=== PATIENT | male | born 1955 | race Caucasian/White ===

== ENCOUNTER 2020-07-16 15:08 | Outpatient (REF) | payer OTHER, SELFPAY ==
[2020-07-16 22:21] LABS: Phenytoin Dilantin 5.1 ug/mL (10.0-20.0)
== END 2020-07-16 15:09 | disposition home or self-care (01) ==
LOC: HO.HMGCLDS 15:08
PROVIDERS: PCP Nurse Practitioner Family; Visit Provider Nurse Practitioner Family
DX: R56.9 Unspecified convulsions (principal)
CPT/HCPCS: 80185

== ENCOUNTER 2020-12-23 10:55 | Outpatient (REF) | payer OTHER, SELFPAY ==
--- NOTE | ~2020-12-23 | XR_ITS ---
EXAMINATION: XR HAND, RIGHT CLINICAL INFORMATION: Soft tissue disorder COMPARISON: Previous x-ray July 2019 TECHNIQUE: PA, lateral, and oblique views of the right hand. FINDINGS: There is an old healed fracture of the base of the fifth proximal phalanx. No acute fracture or dislocation is seen. Joint spaces are normal. Soft tissues are normal. XR/XR hand RT min 3V IMPRESSION: Old healed fracture of the fifth finger. Otherwise unremarkable exam.
[2020-12-23 14:15] LABS: C Reactive Protein 0.37 mg/dL (< or = 0.50); Rheumatoid Factor < 15.0 IU/mL (<15.0)
[2020-12-23 15:29] LABS: Erythrocyte Sedimentation Rate 5 MM/HR (0-15)
[2020-12-24 15:02] LABS: Cyclic Citrullinated Peptide <16 UNITS
[2020-12-26 22:22] LABS: Anti Nuclear Antibody Screen POSITIVE (NEGATIVE)
== END 2020-12-23 10:56 | disposition home or self-care (01) ==
LOC: HO.HMGCX 10:55
PROVIDERS: PCP Nurse Practitioner Family; Visit Provider Nurse Practitioner Family
DX: M79.641 Pain in right hand (principal); M79.644 Pain in right finger(s); M79.89 Other specified soft tissue disorders
CPT/HCPCS: 36415; 73130; 85652; 86038; 86039; 86140; 86200; 86431

== ENCOUNTER 2021-02-20 08:42 | Outpatient (REF) | payer OTHER, SELFPAY ==
[2021-02-20 12:02] LABS: Alanine Aminotransferase 45 U/L (0-40); Albumin Level 4.8 g/dL (3.5-5.0); Alkaline Phosphatase 115 U/L (39-117); Anion Gap 14 (12-20); Aspartate Amino Transferase 32 U/L (5-37); Bilirubin Total 0.4 mg/dL (0.0-1.0); Blood Urea Nitrogen 16 mg/dL (9-16); Carbon Dioxide 27 mmol/L (22-29); Chloride 104 mmol/L (96-108); Cholesterol 165 mg/dL; Estimated Glomerular Filt Rate > 60; Glucose Fasting 126 mg/dL (60-99); HDL Cholesterol 65 mg/dL; LDL Cholesterol Calculated 72 mg/dl; Potassium 4.6 mmol/L (3.3-5.1); Sodium 140 mmol/L (135-145); Total Protein 7.6 g/dL (6.5-8.0); Triglycerides 142 mg/dL
[2021-02-20 12:25] LABS: Prostate Specific Antigen Scr 2.64 ng/mL (<0.05-4.0); TSH reflex Free T4 1.36 uIU/mL (0.32-4.0)
[2021-02-20 13:21] LABS: Phenytoin Dilantin 7.2 ug/mL (10.0-20.0)
[2021-02-22 00:16] LABS: Phenytoin, Free/Unbound <0.5 mg/L (1.0-2.0)
== END 2021-02-20 08:43 | disposition home or self-care (01) ==
LOC: HO.HMGCLDS 08:42
PROVIDERS: PCP Nurse Practitioner Family; Visit Provider Nurse Practitioner Family
DX: Z00.00 Encounter for general adult medical examination without abnormal findings (principal); Z12.5 Encounter for screening for malignant neoplasm of prostate; R56.9 Unspecified convulsions
CPT/HCPCS: 36415; 80053; 80061; 80185; 80186; 84153; 84443

== ENCOUNTER 2021-02-24 13:14 | Outpatient (REF) | payer OTHER, SELFPAY ==
[2021-02-24 14:25] LABS: Estimated Average Glucose 126 mg/dL
== END 2021-02-24 13:15 | disposition home or self-care (01) ==
LOC: HO.HMGCLDS 13:14
PROVIDERS: PCP Nurse Practitioner Family; Visit Provider Nurse Practitioner Family
DX: R73.01 Impaired fasting glucose (principal)
CPT/HCPCS: 36415; 83036

== ENCOUNTER 2021-02-25 13:00 | Outpatient (REF) | payer OTHER, SELFPAY ==
--- NOTE | ~2021-02-25 | CT_ITS ---
EXAMINATION: CT HEAD WITHOUT CONTRAST CLINICAL INFORMATION: Headaches, frontal head pain. COMPARISON: 07/14/[address] scan. TECHNIQUE: Contiguous axial imaging was performed from the skull base to vertex without intravenous administration of contrast. Coronal and sagittal reformatted images were obtained. This CT examination was performed using dose optimization techniques as appropriate, variously including the following: *Automated exposure control *Adjustment of mA and/or kV according to patient size (this includes techniques or standardized protocols for targeted exams where dose is matched to indication/reason for exam; i.e. extremities or head) *Use of iterative reconstruction technique DLP: 798 mGy-cm FINDINGS: There is mild widening of the cortical sulci with frontal predominance. The lateral ventricles are symmetrical. The third and fourth ventricles are in their normal midline position. The basilar and prepontine cisterns are unremarkable. There is no acute intra or extracerebral abnormality. There is no mass effect or midline shift. Sections through the bony calvarium are unremarkable. The orbits are intact. The paranasal sinuses are clear. The mastoid air cells are clear. CT/CT head/brain wo con IMPRESSION: No acute intracranial pathology. No significant interval change.
== END 2021-02-25 13:01 | disposition home or self-care (01) ==
LOC: HO.CT 13:00
PROVIDERS: Visit Provider Nurse Practitioner Family
DX: R51.9 Headache, unspecified (principal)
CPT/HCPCS: 70450

== ENCOUNTER 2021-03-13 12:54 | Outpatient (REF) | payer OTHER, SELFPAY ==
[2021-03-13 14:48] LABS: MANUAL DIFF FLAG NO
[2021-03-13 14:56] LABS: Basophils Percent Auto 0.6 % (0-2); Eosinophils Absolute Auto 0.2 X10*3/uL (0.0-0.4); Eosinophils Percent Auto 2.5 % (0-4); Hematocrit 43.2 % (42-52); Hemoglobin 14.8 g/dl (14.0-18.0); Imm Gran Abs Auto 0.01 X10*3/uL (0.00-0.03); Imm Gran Pct Auto 0.2 % (0.0-0.4); Lymphocytes Absolute Auto 1.6 X10*3/uL (1.2-4.9); Lymphocytes Percent Auto 26.1 % (20-40); Mean Corpuscular HGB Conc 34.3 g/dl (31.0-36.0); Mean Corpuscular Hemoglobin 31.6 pg (27.0-33.0); Mean Corpuscular Volume 92.1 fL (80-98); Mean Platelet Volume 11.4 fL (9.4-12.4); Monocytes Absolute Auto 0.5 X10*3/uL (0.1-1.2); Monocytes Percent Auto 8.4 % (2-11); Neutrophils Absolute Auto 3.9 X10*3/uL (2.0-8.3); Neutrophils Percent Auto 62.2 % (45-73); Platelet Count 163 X10*3/uL (160-400); Red Blood Count 4.69 X10*6/uL (4.60-5.80); White Blood Count 6.3 X10*3/uL (4.8-10.8)
[2021-03-13 15:26] LABS: Alanine Aminotransferase 37 U/L (0-40); Albumin Level 4.3 g/dL (3.5-5.0); Alkaline Phosphatase 108 U/L (39-117); Anion Gap 13 (12-20); Aspartate Amino Transferase 35 U/L (5-37); Bilirubin Total 0.4 mg/dL (0.0-1.0); Blood Urea Nitrogen 14 mg/dL (9-16); C Reactive Protein 0.13 mg/dL (< or = 0.50); Calcium 8.8 mg/dL (8.4-10.2); Carbon Dioxide 23 mmol/L (22-29); Chloride 109 mmol/L (96-108); Estimated Glomerular Filt Rate > 60; Glucose Random 106 mg/dL (60-115); Potassium 4.3 mmol/L (3.3-5.1); Sodium 141 mmol/L (135-145); Total Protein 6.9 g/dL (6.5-8.0)
[2021-03-13 15:37] LABS: Erythrocyte Sedimentation Rate 7 MM/HR (0-15)
[2021-03-13 16:25] LABS: Glucose Urine UA NEG (NEG); Leukocyte Esterase Urine NEG (NEG); Nitrite Urine NEG (NEG); Specific Gravity - Urine >= 1.030 (1.005-1.025); Urine Blood NEG (NEG); Urine Ketones NEG (NEG); Urine Protein TRACE MG/DL (NEG-TRACE)
[2021-03-13 16:27] LABS: Appearance Urine CLEAR; Color Urine YELLOW
[2021-03-13 16:35] LABS: Bacteria Urine TRACE /LPF; Mucus Urine TRACE /LPF; RBC Urine 0 /HPF (0); WBC Urine 0 /HPF (0-4)
[2021-03-14 09:37] LABS: Thyroglobulin Antibodies <1 IU/mL (< or = 1); Thyroid Peroxidase Antibodies <1 IU/mL (<9)
[2021-03-14 14:07] LABS: Anti DNA DS Antibody 3 IU/mL; Antibody to SS-A Antigen <1.0 NEG AI (<1.0 NEG); Antibody to SS-B Antigen <1.0 NEG AI (<1.0 NEG); Cardiolipin IgG Ab <2.0 GPL-U/mL; Cardiolipin IgM Ab <2.0 MPL-U/mL; SM/Ribonucleoprotein Ab <1.0 NEG AI (<1.0 NEG); Smith Protein <1.0 NEG AI (<1.0 NEG)
[2021-03-16 10:37] LABS: Complement C3 149 mg/dL (82-185)
[2021-03-16 11:53] LABS: Beta-2 Microglobulin, Serum 1.84 mg/L (< OR = 2.51)
[2021-03-16 14:42] LABS: PTT (LAC) Screen 24 sec (< OR = 40)
== END 2021-03-13 12:55 | disposition home or self-care (01) ==
LOC: HO.LAB 12:54
PROVIDERS: PCP Nurse Practitioner Family; Visit Provider Student in an Organized Health Care Education/Training Program
DX: R76.8 Other specified abnormal immunological findings in serum (principal)
CPT/HCPCS: 36415; 80053; 81001; 82232; 85025; 85597; 85613; 85652; 85730; 86140; 86147; 86160; 86225; 86235; 86376; 86800

== ENCOUNTER → 2021-04-07 12:49 | Outpatient (BNVA) | payer OTHER, SELFPAY | PROVIDERS: PCP Nurse Practitioner Family; Visit Provider Student in an Organized Health Care Education/Training Program ==

== ENCOUNTER → 2021-04-15 10:48 | Outpatient (BNVA) | payer OTHER, SELFPAY | PROVIDERS: PCP Nurse Practitioner Family; Visit Provider Internal Medicine ==

== ENCOUNTER → 2021-05-21 13:33 | Outpatient (BNVA) | payer OTHER, SELFPAY | PROVIDERS: PCP Nurse Practitioner Family; Visit Provider Internal Medicine ==

== ENCOUNTER 2021-09-10 09:51 | Outpatient (REF) | payer MEDICARE, OTHER, SELFPAY ==
[2021-09-10 11:26] LABS: MANUAL DIFF FLAG NO
[2021-09-10 11:33] LABS: Basophils Percent Auto 0.6 % (0-2); Eosinophils Absolute Auto 0.1 X10*3/uL (0.0-0.4); Eosinophils Percent Auto 2.2 % (0-4); Hematocrit 44.5 % (42.0-52.0); Hemoglobin 14.9 g/dl (14.0-18.0); Imm Gran Abs Auto 0.01 X10*3/uL (0.00-0.03); Imm Gran Pct Auto 0.2 % (0.0-0.4); Lymphocytes Absolute Auto 1.6 X10*3/uL (1.2-4.9); Lymphocytes Percent Auto 31.8 % (20-40); Mean Corpuscular HGB Conc 33.5 g/dl (31.0-36.0); Mean Corpuscular Hemoglobin 31.2 pg (27.0-33.0); Mean Corpuscular Volume 93.1 fL (80.0-98.0); Mean Platelet Volume 11.7 fL (9.4-12.4); Monocytes Absolute Auto 0.4 X10*3/uL (0.1-1.2); Monocytes Percent Auto 8.7 % (2-11); Neutrophils Absolute Auto 2.8 x10*3/uL (2.0-8.3); Neutrophils Percent Auto 56.5 % (45-73); Platelet Count 152 X10*3/uL (160-400); Red Blood Count 4.78 X10*6/uL (4.60-5.80); Red Cell Distribution Width 12.4 % (11.0-16.0)
[2021-09-10 12:03] LABS: Appearance Urine CLEAR; Color Urine YELLOW; Glucose Urine UA NEG (NEG); Leukocyte Esterase Urine NEG (NEG); Nitrite Urine NEG (NEG); Specific Gravity - Urine >= 1.030 (1.005-1.025); Urine Blood NEG (NEG); Urine Ketones NEG (NEG); Urine Protein NEG (NEG-TRACE)
[2021-09-10 12:14] LABS: TSH reflex Free T4 1.61 uIU/mL (0.32-4.0)
[2021-09-10 12:28] LABS: Alanine Aminotransferase 26 U/L (0-40); Albumin Level 4.4 g/dL (3.5-5.0); Alkaline Phosphatase 115 U/L (39-117); Anion Gap 13 (12-20); Aspartate Amino Transferase 26 U/L (5-37); Bilirubin Total 0.4 mg/dL (0.0-1.0); Blood Urea Nitrogen 11 mg/dL (9-16); Carbon Dioxide 26 mmol/L (22-29); Chloride 107 mmol/L (96-108); Cholesterol 165 mg/dL; Estimated Glomerular Filt Rate > 60; Glucose Fasting 131 mg/dL (60-99); HDL Cholesterol 57 mg/dL; LDL Cholesterol Calculated 90 mg/dl; Potassium 4.6 mmol/L (3.3-5.1); Sodium 141 mmol/L (135-145); Triglycerides 94 mg/dL
[2021-09-10 13:38] LABS: Phenytoin Dilantin 7.2 ug/mL (10.0-20.0)
== END 2021-09-10 09:52 | disposition home or self-care (01) ==
LOC: HO.HMGCLDS 09:51
PROVIDERS: PCP Nurse Practitioner Family; Visit Provider Nurse Practitioner Family
DX: Z00.00 Encounter for general adult medical examination without abnormal findings (principal); R56.9 Unspecified convulsions
CPT/HCPCS: 36415; 80053; 80061; 80185; 81003; 84443; 85025

== ENCOUNTER → 2021-11-19 12:46 | Outpatient (BNVA) | payer OTHER, SELFPAY | PROVIDERS: PCP Nurse Practitioner Family; Referring Provider Nurse Practitioner Family; Visit Provider Physician Assistant ==

== ENCOUNTER 2022-01-05 11:45 | Outpatient (REF) | payer OTHER, SELFPAY ==
[2022-01-05 14:11] LABS: Hematocrit 49.2 % (42.0-52.0); Hemoglobin 16.6 g/dl (14.0-18.0); Mean Corpuscular HGB Conc 33.7 g/dl (31.0-36.0); Mean Corpuscular Hemoglobin 31.3 pg (27.0-33.0); Mean Corpuscular Volume 92.8 fL (80.0-98.0); Mean Platelet Volume 11.8 fL (9.4-12.4); Platelet Count 170 X10*3/uL (160-400); Red Cell Distribution Width 12.4 % (11.0-16.0); White Blood Count 6.3 X10*3/uL (4.8-10.8)
[2022-01-05 14:22] LABS: Alanine Aminotransferase 39 U/L (0-40); Albumin Level 4.5 g/dL (3.5-5.0); Alkaline Phosphatase 125 U/L (39-117); Anion Gap 14 (12-20); Aspartate Amino Transferase 27 U/L (5-37); Bilirubin Direct 0.2 mg/dL (0.0-0.5); Bilirubin Total 0.5 mg/dL (0.0-1.0); Blood Urea Nitrogen 11 mg/dL (9-16); C Reactive Protein 0.08 mg/dL (< or = 0.50); Calcium 9.4 mg/dL (8.4-10.2); Carbon Dioxide 28 mmol/L (22-29); Chloride 102 mmol/L (96-108); Estimated Glomerular Filt Rate > 60; Glucose Random 116 mg/dL (60-115); Potassium 4.6 mmol/L (3.3-5.1); Sodium 139 mmol/L (135-145); Total Protein 7.4 g/dL (6.5-8.0)
== END 2022-01-05 11:46 | disposition home or self-care (01) ==
LOC: HO.HMGCLDS 11:45
PROVIDERS: Visit Provider Internal Medicine
DX: R51.9 Headache, unspecified (principal)
CPT/HCPCS: 36415; 80048; 80076; 85027; 86140

== ENCOUNTER 2022-02-08 12:05 | Emergency (ER) | payer OTHER, SELFPAY ==
--- NOTE | ~2022-02-08 | XR_ITS ---
EXAMINATION: XR ABDOMEN KUB CLINICAL INDICATION: Constipation with question of small bowel obstruction and fecal impaction COMPARISON: None TECHNIQUE: AP view of the abdomen. FINDINGS: The bowel gas pattern is unremarkable with no evidence of ileus or obstruction. Surgical clips are noted right upper quadrant, right mid abdomen and midpelvis. No unusual soft tissue calcifications are noted. The bones are unremarkable. XR/XR KUB IMPRESSION: Unremarkable examination.
--- NOTE | ~2022-02-08 | CT_ITS ---
EXAMINATION: CT CHEST, ABDOMEN AND PELVIS WITHOUT CONTRAST CLINICAL INFORMATION: Reason for Exam elevated WBC. Colitis or pneumonia? COMPARISON: No pertinent prior studies are available for comparison. TECHNIQUE: Multidetector volumetric imaging was performed from the thoracic inlet through the pubic symphysis without IV contrast. Sagittal and coronal reformatted images were obtained on the technologist's workstation. This CT examination was performed using dose optimization techniques as appropriate, variously including the following: *Automated exposure control *Adjustment of mA and/or kV according to patient size (this includes techniques or standardized protocols for targeted exams where dose is matched to indication/reason for exam; i.e. extremities or head) *Use of iterative reconstruction technique DLP: 330 and 711 mGy-cm FINDINGS: CHEST: Lung: Bibasilar atelectasis is seen along with multiple punctate calcified granulomas predominantly in the right lung. The lungs are otherwise clear without worrisome focal opacity or nodule. Mediastinum: The mediastinum is normal. The central vascular structures are unremarkable. No hilar or mediastinal lymphadenopathy. Pericardium/Pleura: No significant effusion. No pleural mass or thickening. Chest Wall/Axilla: Unremarkable ABDOMEN/PELVIS: Peritoneal Space: No significant free air or free fluid identified. Liver, Gallbladder, Biliary Tree: The liver is normal in size, shape, and attenuation. No focal hepatic lesion or biliary ductal dilatation is present. Status post cholecystectomy. Pancreas: Unremarkable Spleen: Unremarkable Adrenal Glands: Unremarkable Kidneys and Ureters: The kidneys are normal in size, shape, and attenuation. No hydronephrosis, hydroureter, or calculi seen. No perinephric stranding. Bladder: Unremarkable Gastrointestinal Tract: The small and large bowel are unremarkable. The appendix is unremarkable. Abdominal Wall: No significant hernia is appreciated. Lymph Nodes: No lymphadenopathy. Vascular: The aorta appears normal.. The IVC appears unremarkable. PELVIC VISCERA: Unremarkable OSSEUS STRUCTURES: Mild degenerative changes are noted in the spine. Mild to moderate changes are seen in the hips. No bony destructive lesions are seen. CT/CT abdomen pelvis wo con IMPRESSION: No significant abnormality is seen. A cause for the patient's elevated white count has not been found. There is no evidence of pneumonia or colitis. Fleischner guidelines were followed.
--- NOTE | ~2022-02-08 | CT_ITS ---
EXAMINATION: CT HEAD WITHOUT CONTRAST CLINICAL INFORMATION: Seizure. COMPARISON: None TECHNIQUE: Contiguous axial imaging was performed from the skull base to vertex without intravenous administration of contrast. This CT examination was performed using dose optimization techniques as appropriate, variously including the following: *Automated exposure control *Adjustment of mA and/or kV according to patient size (this includes techniques or standardized protocols for targeted exams where dose is matched to indication/reason for exam; i.e. extremities or head) *Use of iterative reconstruction technique DLP: 1713 mGy-cm FINDINGS: There is no evidence of acute intracranial hemorrhage or territorial infarction. No abnormal mass effect or midline shift is seen. Rao to white matter differentiation is well preserved. No extra-axial fluid collections are identified. The ventricles are normal in size. There is no abnormal attenuation within the brain parenchyma. The osseous structures and soft tissues are normal. The mastoid air cells and visualized portions of the paranasal sinuses are well aerated. CT/CT head/brain wo con IMPRESSION: No acute intracranial process seen.
--- NOTE | 2022-02-08 13:30 | ED_ITS ---
HPI - General Adult General Chief complaint: Seizure Stated complaint: respiratory distress Time Seen by Provider: 02/08/22 13:00 Source: patient Mode of arrival: ambulatory Limitations: no limitations History of Present Illness HPI narrative: 66-year-old male history of seizures presents to the ED seizure/syncope while having a bowel movement. Patient was having bowel movement in the waiting room and he was straining so hard that he passed out started having seizure. Seizure was witnessed by and nurse. states patient has history of constipation and fecal impaction that leads to syncope and seizures when straining. She states when patient has severe constipation and fecal impaction and he strains using the bathroom he syncopize and has his seizure. She states patient is compliant with seizure medications. Patient takes seizure meds at night. Related Data Home Medications Medication Instructions Recorded Confirmed azelastine 137 mcg (0.1 %) nasal INTRANASAL 07/07/20 01/05/22 spray aerosol citalopram 10 mg/5 mL oral solution mg PO 07/07/20 01/05/22 dextroamphetamine-amphetamine ER 1 cap PO DAILY 07/07/20 01/05/22 10 mg 24hr capsule,extend release flu vac qs 2019(4 yr up)CD(PF) ml IM 07/07/20 01/05/22 lorazepam 0.5 mg tablet 1 mg PO BID 07/07/20 01/05/22 fluticasone propionate 50 2 spray INTRANASAL DAILY 08/19/20 01/05/22 mcg/actuation nasal spray,suspension Previous Rx's Medication Instructions Recorded atorvastatin 80 mg tablet 80 mg PO DAILY #90 tab 06/07/21 bisacodyl 5 mg tablet,delayed 10 mg PO ONCE 1 Days #2 tab 11/19/21 release (Dulcolax (bisacodyl)) polyethylene glycol 3350 17 238 g PO ONCE 1 Days #238 g 11/19/21 gram/dose oral powder (Miralax) quinapril 10 mg tablet 10 mg PO DAILY #90 tab 12/12/21 phenytoin sodium extended 100 mg 300 mg PO DAILY #270 cap 01/02/22 capsule fluticasone propionate 50 1 spray INTRANASAL DAILY #9.9 ml 01/05/22 mcg/actuation nasal spray,suspension (Flonase Allergy Relief) meloxicam 15 mg tablet 15 mg PO DAILY #14 tab 01/05/22 Allergies Allergy/AdvReac Type Severity Reaction Status Date / Time prednisone Allergy Severe severe Verified 02/08/22 18:35 headaches Review of Systems Review of Systems: Constipation. Seizure. Yes all other systems are reviewed and are negative [facility] Past Medical History Medical History (Updated 02/08/22 @ 19:40 by JEMMA Mejía) Depression Excessive daytime sleepiness Family history of colon cancer Insomnia Seizures Sinus headache Surgical History (Updated 11/19/21 @ 12:54 by SHAHLA Hdez) History of hernia repair Hx of cholecystectomy Hx of colonoscopy Family History Family History Father Colon cancer Mother Unknown family medical history Dementia associated with alcoholism Brother Cirrhosis Son No problems noted. Son No problems noted. Social History Social History Housing: House Alcohol intake: never Patient Tobacco Use Status: Never used Tobacco e-Cigarette/Vaping Use: Never Used Second Hand Smoke Exposure: No Advance Directives: No Advance Directives Information Provided: Yes service: No Current occupational status: employed and retired Physical Exam ED Vital Signs: Vital Signs - 24 hr 02/08/22 15:45 02/08/22 18:36 02/08/22 19:04 Temperature 97.7 F 98.3 F 97.8 F Pulse Rate 93 80 72 Respiratory Rate 16 18 16 Blood Pressure 133/77 138/77 137/73 Pulse Oximetry 96 96 98 BMI result Body Mass Index 28.5 Const General: cooperative, healthy appearing, comfortable, no acute distress, well developed, alert, awake and Physically active Orientation/consciousness: oriented to time and patient oriented x3 [facility]: Yes normal to inspection, Yes No palpable skull fracture present, Yes normocephalic, Yes atraumatic and No abrasion Eyes General: appearance normal, both eyes and all related structures Neck Neck: Yes normal visual inspection, Yes full ROM, Yes no lymphadenopathy, Yes no meningeal signs, Yes trachea midline, Yes supple, No anterior neck swelling and No tender Chest Chest palpation & inspection: normal inspection of the chest and normal palpation of entire chest wall Resp Effort & Inspection: normal respiratory effort and able to speak in complete sentences Auscultation: clear to auscultation bilaterally Cardio Jugular venous distension: no JVD Heart sounds: S1 normal heart sound present and S2 normal heart sound present GI Inspection: Yes normal to inspection and No abdominal wall ecchymosis Palpation (GI): Soft to palpation, not firm, nontender, no guarding and not rigid General: No CVA tenderness and Yes no CVA tenderness Back/Spine/Pelvis Back: no CVA tenderness, No CVA tenderness and No back tenderness Skin General skin exam: no rashes or lesions noted and elasticity normal Neuro General: oriented to time, patient oriented x3, gait normal, no meningeal signs and CN's II-XI intact bilaterally Cranial nerves: Yes CN's II-XII intact bilaterally Extrem General: Yes normal to inspection and Yes full ROM Psych Appearance: grossly normal, well kempt and not disheveled Course Course Course Narrative: Patient was placed in the ER from the bathroom in the waiting room after having seizure while trying to have a bowel movement. Patient then went to the bathroom in the ER ever since has been having bowel movements. Will re-evaluate when he gets to the bed. Reevaluation(s) Reevaluation #1: Patient had large amount of bowel movements in the bathroom both before abdominal x-ray was done. Patient states he had multiple bowel movements in the bathroom and feels better. He states abdomen no longer for distended. Abdomen benign soft nontender on palpation. Elevated white blood cell count probably due to straining. Time: 15:54 Reevaluation #2: Patient troponins came back negative. EKG negative STEMI. Chest CT abdominal CT negative for any infectious etiology. Head CT scan negative for any brain mass. Not suspecting meningitis. Abdominal CT scan negative for bowel ob struction. Patient given Dilantin. Patient informed to follow-up with his neurologist. No need for admission. not suspecting PE. Patient had a syncopal than seizure episode while straining to use the bathroom. Time: 19:35 Medical Decision Making MDM Narrative Medical decision making narrative: Seizure. Post defecation syncope Lab Data Result diagrams: 02/08/22 15:14 02/08/22 15:14 Labs: Lab Results 02/08/22 02/08/22 02/08/22 Range/Units 15:14 15:14 15:14 WBC 15.5 H (4.8-10.8) X10*3/uL RBC 5.13 (4.60-5.80) X10*6/uL Hgb 15.9 (14.0-18.0) g/dl Hct 46.9 (42.0-52.0) % MCV 91.4 (80.0-98.0) fL MCH 31.0 (27.0-33.0) pg MCHC 33.9 (31.0-36.0) g/dl RDW 12.3 (11.0-16.0) % Plt Count 155 L (160-400) X10*3/uL MPV 10.7 (9.4-12.4) fL Immature Gran % (Auto) 0.4 (0.0-0.4) % Neut % (Auto) 89.2 H (45-73) % Lymph % (Auto) 4.8 L (20-40) % [place] % (Auto) 5.3 (2-11) % Eos % (Auto) 0.1 (0-4) % Baso % (Auto) 0.2 (0-2) % Lymph # (Auto) 0.8 L (1.2-4.9) X10*3/uL [place] # (Auto) 0.8 (0.1-1.2) X10*3/uL Eos # (Auto) 0.0 (0.0-0.4) X10*3/uL Baso # (Auto) 0.0 (0.0-0.2) X10*3/uL Abs Immat Gran (auto) 0.06 H (0.00-0.03) X10*3/uL Absolute Neuts (auto) 13.8 H (2.0-8.3) x10*3/uL Absolute Nucleated RBC 0.000 (0.0-0.012) X10*3/uL Nucleated RBC % (auto) 0.0 (0.0-0.2) /100WBC PT 11.7 (9.9-13.0) SEC INR 1.0 (0.9-1.1) APTT 29.1 (24.1-38.0) SEC Sodium 138 (135-145) mmol/L Potassium 5.1 (3.3-5.1) mmol/L Chloride 108 (96-108) mmol/L Carbon Dioxide 23 (22-29) mmol/L Anion Gap 12 (12-20) BUN 11 (9-16) mg/dL Creatinine 0.90 (0.5-1.4) mg/dL Estim Creat Clear Calc TNP Estimated GFR > 60 Random Glucose 124 H (60-115) mg/dL Calcium 9.6 (8.4-10.2) mg/dL Total Bilirubin 0.6 (0.0-1.0) mg/dL AST 37 (5-37) U/L ALT 42 H (0-40) U/L Alkaline Phosphatase 122 H (39-117) U/L Troponin I High Sens (<3.5-35.0) ng/L Total Protein 7.8 (6.5-8.0) g/dL Albumin 4.8 (3.5-5.0) g/dL Urine Color Urine Appearance Urine pH (5.0-8.0) Ur Specific [place] (1.005-1.025) Urine Protein (NEG-TRACE) MG/DL Urine Glucose (UA) (NEG) MG/DL Urine Ketones (NEG) MG/DL Urine Blood (NEG) Urine Nitrite (NEG) Ur Leukocyte Esterase (NEG) Urine RBC (0) /HPF Urine WBC (0-4) /HPF Ur Squamous Epith Cells /LPF Urine Bacteria /LPF Phenytoin 5.7 L* (10.0-20.0) ug/mL 02/08/22 02/08/22 02/08/22 Range/Units 15:14 18:43 18:59 WBC (4.8-10.8) X10*3/uL RBC (4.60-5.80) X10*6/uL Hgb (14.0-18.0) g/dl Hct (42.0-52.0) % MCV (80.0-98.0) fL MCH (27.0-33.0) pg MCHC (31.0-36.0) g/dl RDW (11.0-16.0) % Plt Count (160-400) X10*3/uL MPV (9.4-12.4) fL Immature Gran % (Auto) (0.0-0.4) % Neut % (Auto) (45-73) % Lymph % (Auto) (20-40) % [place] % (Auto) (2-11) % Eos % (Auto) (0-4) % Baso % (Auto) (0-2) % Lymph # (Auto) (1.2-4.9) X10*3/uL [place] # (Auto) (0.1-1.2) X10*3/uL Eos # (Auto) (0.0-0.4) X10*3/uL Baso # (Auto) (0.0-0.2) X10*3/uL Abs Immat Gran (auto) (0.00-0.03) X10*3/uL Absolute Neuts (auto) (2.0-8.3) x10*3/uL Absolute Nucleated RBC (0.0-0.012) X10*3/uL Nucleated RBC % (auto) (0.0-0.2) /100WBC PT (9.9-13.0) SEC INR (0.9-1.1) APTT (24.1-38.0) SEC Sodium (135-145) mmol/L Potassium (3.3-5.1) mmol/L Chloride (96-108) mmol/L Carbon Dioxide (22-29) mmol/L Anion Gap (12-20) BUN (9-16) mg/dL Creatinine (0.5-1.4) mg/dL Estim Creat Clear Calc Estimated GFR Random Glucose (60-115) mg/dL Calcium (8.4-10.2) mg/dL Total Bilirubin (0.0-1.0) mg/dL AST (5-37) U/L ALT (0-40) U/L Alkaline Phosphatase (39-117) U/L Troponin I High Sens 6.1 6.4 (<3.5-35.0) ng/L Total Protein (6.5-8.0) g/dL Albumin (3.5-5.0) g/dL Urine Color YELLOW Urine Appearance CLEAR Urine pH 5.5 (5.0-8.0) Ur Specific [place] 1.025 (1.005-1.025) Urine Protein NEG (NEG-TRACE) MG/DL Urine Glucose (UA) NEG (NEG) MG/DL Urine Ketones NEG (NEG) MG/DL Urine Blood TRACE (NEG) Urine Nitrite NEG (NEG) Ur Leukocyte Esterase NEG (NEG) Urine RBC 1-4 (0) /HPF Urine WBC 0 (0-4) /HPF Ur Squamous Epith Cells TRACE /LPF Urine Bacteria NONE /LPF Phenytoin (10.0-20.0) ug/mL ECG Data Interpretation: Normal sinus rhythm. Ventricular rate 92. Pr interval 182 pr QRS 88. QTC 457. Negative STEMI Discharge Plan Discharge Clinical Impression: Seizure, Syncope, vasovagal, Constipation Patient Disposition: Home, Self-Care Instructions: Constipation (ED), Syncope (ED), Recurrent Seizures in Adults (ED) Additional Instructions: Return to ED immediately for any headache, dizziness, nausea, vomiting, fever, chills, abdominal pain, chest pain, shortness of breath, blood in stool, intractable seizures, facial droop, paralysis of extremities, loss of vision, slurred speech, or any other concerning symptoms. Please follow-up with the primary care provider and neurologist. You're, Dilantin level was low Prescriptions: No Action atorvastatin 80 mg tablet 80 mg PO DAILY Qty: 90 2RF quinapril 10 mg tablet 10 mg PO DAILY Qty: 90 1RF phenytoin sodium extended 100 mg capsule 300 mg PO DAILY Qty: 270 1RF fluticasone propionate 50 mcg/actuation spray,suspension 2 spray intranasal DAILY 0RF Flucelvax Quad 7334-7700 (PF) 60 mcg (15 mcg x 4)/0.5 mL syringe IM 0RF dextroamphetamine-amphetamine 10 mg capsule,extended release 24hr 1 cap PO DAILY 0RF citalopram 10 mg/5 mL solution PO 0RF azelastine 137 mcg (0.1 %) aerosol,spray intranasal 0RF lorazepam 0.5 mg tablet 1 mg PO BID 0RF meloxicam 15 mg tablet 15 mg PO DAILY Qty: 14 0RF fluticasone propionate [Flonase Allergy Relief] 50 mcg/actuation spray,suspension 1 spray intranasal DAILY Qty: 9.9 1RF Rx Instructions: administer into each nostril bisacodyl [Dulcolax (bisacodyl)] 5 mg tablet,delayed release (DR/EC) 10 mg PO ONCE 1 Days Qty: 2 0RF Rx Instructions: Take 2 tablets by mouth at 12:00pm the day before your procedure. polyethylene glycol 3350 [Miralax] 17 gram/dose powder 238 g PO ONCE 1 Days Qty: 238 0RF Rx Instructions: Take as directed by mouth the day before your procedure. Print Language: Syriac
--- NOTE | 2022-02-08 14:41 | ECG_ITS ---
Test Reason : SYNCOPE/SEIZURE Blood Pressure : / mmHG Vent. Rate : 092 BPM Atrial Rate : 092 BPM P-R Int : 182 ms QRS Dur : 088 ms QT Int : 370 ms P-R-T Axes : 051 -30 054 degrees QTc Int : 457 ms Normal sinus rhythm Left axis deviation Borderline ECG When compared with ECG of 09-JAN-2010 09:49, QT has lengthened Referred By: Ab Cam Electronically Signed By:BETSY ARREDONDO
[2022-02-08 15:17] LABS: MANUAL DIFF FLAG NO
[2022-02-08 15:22] LABS: Basophils Percent Auto 0.2 % (0-2); Eosinophils Percent Auto 0.1 % (0-4); Hematocrit 46.9 % (42.0-52.0); Hemoglobin 15.9 g/dl (14.0-18.0); Imm Gran Abs Auto 0.06 X10*3/uL (0.00-0.03); Imm Gran Pct Auto 0.4 % (0.0-0.4); Lymphocytes Absolute Auto 0.8 X10*3/uL (1.2-4.9); Lymphocytes Percent Auto 4.8 % (20-40); Mean Corpuscular HGB Conc 33.9 g/dl (31.0-36.0); Mean Corpuscular Volume 91.4 fL (80.0-98.0); Mean Platelet Volume 10.7 fL (9.4-12.4); Monocytes Absolute Auto 0.8 X10*3/uL (0.1-1.2); Monocytes Percent Auto 5.3 % (2-11); Neutrophils Absolute Auto 13.8 x10*3/uL (2.0-8.3); Neutrophils Percent Auto 89.2 % (45-73); Platelet Count 155 X10*3/uL (160-400); Red Blood Count 5.13 X10*6/uL (4.60-5.80); Red Cell Distribution Width 12.3 % (11.0-16.0); White Blood Count 15.5 X10*3/uL (4.8-10.8)
[2022-02-08 15:26] LABS: Prothrombin Time 11.7 SEC (9.9-13.0)
[2022-02-08 15:28] LABS: Partial Thromboplastin Time 29.1 SEC (24.1-38.0)
[2022-02-08 15:36] LABS: Alanine Aminotransferase 42 U/L (0-40); Albumin Level 4.8 g/dL (3.5-5.0); Alkaline Phosphatase 122 U/L (39-117); Anion Gap 12 (12-20); Aspartate Amino Transferase 37 U/L (5-37); Bilirubin Total 0.6 mg/dL (0.0-1.0); Blood Urea Nitrogen 11 mg/dL (9-16); Calcium 9.6 mg/dL (8.4-10.2); Carbon Dioxide 23 mmol/L (22-29); Chloride 108 mmol/L (96-108); Estimated Glomerular Filt Rate > 60; Glucose Random 124 mg/dL (60-115); Potassium 5.1 mmol/L (3.3-5.1); Sodium 138 mmol/L (135-145); Total Protein 7.8 g/dL (6.5-8.0)
[2022-02-08 15:39] LABS: Troponin-I High Sensitivity 6.1 ng/L (<3.5-35.0)
[2022-02-08 15:45] VITALS: BP 133/77; PULSE 93; RESP 16; TEMP 36.5; O2SAT 96
[2022-02-08 16:01] LABS: Phenytoin Dilantin 5.7 ug/mL (10.0-20.0)
[2022-02-08 18:36] VITALS: BP 138/77; PULSE 80; RESP 18; TEMP 36.8; O2SAT 96; BMI 28.5
[2022-02-08] MEDS: Phenytoin Sodium Extended 100 MG CAPSULE 300 MG PO (18:42)
--- NOTE | 2022-02-08 18:50 | PC.NURSE ---
pt a&ox3, vss, pt c/o slight abd discomfort, but better since bowel movement. urine sample obtained and sent to lab. medicated per provider order.
[2022-02-08 19:04] VITALS: BP 137/73; PULSE 72; RESP 16; TEMP 36.6; O2SAT 98
[2022-02-08 19:04] LABS: Appearance Urine CLEAR; Color Urine YELLOW; Glucose Urine UA NEG (NEG); Leukocyte Esterase Urine NEG (NEG); Nitrite Urine NEG (NEG); PH 5.5 (5.0-8.0); Specific Gravity - Urine 1.025 (1.005-1.025); UACC Culture Trigger NO; Urine Blood TRACE (NEG); Urine Ketones NEG (NEG); Urine Protein NEG (NEG-TRACE)
[2022-02-08 19:11] LABS: Squamous Epithelial Cell Urine TRACE /LPF; WBC Urine 0 /HPF (0-4)
[2022-02-08 19:30] LABS: Troponin-I High Sensitivity 6.4 ng/L (<3.5-35.0)
== END 2022-02-08 19:57 | disposition home or self-care (01) ==
PROVIDERS: Physician Assistant; Emergency Provider Emergency Medicine Emergency Medical Services; PCP Nurse Practitioner Family
DX: R55 Syncope and collapse (principal); R56.9 Unspecified convulsions; K59.00 Constipation, unspecified; R06.02 Shortness of breath; Z79.899 Other long term (current) drug therapy
CPT/HCPCS: 36415; 70450; 71250; 74018; 74176; 80053; 80185; 81001; 81003; 84484; 85025; 85610; 85730; 93005; 99284

== ENCOUNTER 2022-04-06 10:26 | Outpatient (REF) | payer OTHER, SELFPAY ==
--- NOTE | ~2022-04-06 | XR_ITS ---
EXAMINATION: XR RIBS, RIGHT CLINICAL INFORMATION: Pleurodynia COMPARISON: CT chest 02/08/2022 TECHNIQUE: 3 views of the right ribs were obtained. Chest PA 1 view FINDINGS: Lungs are clear. No consolidation, pneumothorax, or pleural effusion. The cardiomediastinal silhouette and pulmonary vasculature are normal. Osseous structures are unremarkable. Markers were placed along the right lower chest but no rib fractures are visualized.. XR/XR ribs RT min 3V w CXR1V IMPRESSION: Unremarkable chest exam. Multiple views right ribs reveal no visible fracture or bony abnormality.
== END 2022-04-06 10:27 | disposition home or self-care (01) ==
LOC: HO.HMGCX 10:26
PROVIDERS: PCP Nurse Practitioner Family; Visit Provider Physician Assistant
DX: R07.81 Pleurodynia (principal)
CPT/HCPCS: 71101

== ENCOUNTER 2022-06-02 11:29 | Day surgery (SDC) | payer OTHER, SELFPAY ==
[2022-02-11 16:23] VITALS: BMI 28.5
--- NOTE | 2022-06-01 11:43 | HO.ANESPROP2 ---
Documented by User: Elise Driver NP 06/01/22 11:45 HPI - Anesthesia Eval Consult details Narrative: 67yo M for Colonoscopy PMFSH Active Problems Active Problems: All Active Problems (Updated 05/20/22 @ 12:18 by Michael Rich, [facility]) Screening PSA (prostate specific antigen) (Acute) Constipation (Acute) Vasovagal syncope (Acute) Sinus headache (Acute) Physical exam (Acute) Insomnia (Acute) Stress (Acute) Screening for colon cancer (Acute) Insomnia (Acute) Depression (Acute) Excessive daytime sleepiness (Acute) Elevated fasting blood sugar (Acute) New onset headache (Acute) Sleep apnea (Acute) Positive VANGIE (antinuclear antibody) (Acute) Pain of hand and fingers (Acute) Swelling of right hand (Acute) Fatigue after vaccination (Acute) Acute sinusitis (Acute) Screening PSA (prostate specific antigen) (Acute) Physical exam (Acute) Seizures (Acute) Medication refill (Acute) Cellulitis (Acute) Splinter (Acute) Past Medical History Medical History Depression Excessive daytime sleepiness Family history of colon cancer Insomnia Seizures Sinus headache Family History Family History Father Colon cancer Mother Unknown family medical history Dementia associated with alcoholism Brother Cirrhosis Substance use disorder Son No problems noted. Son No problems noted. Surgical History Surgical History History of hernia repair Hx of cholecystectomy Hx of colonoscopy Social History Social History Housing: House Are you a primary skin care consultant to a significant other at home: No Do you presently have visiting nurse or other home services: No Alcohol intake: never Patient Tobacco Use Status: Never used Tobacco e-Cigarette/Vaping Use: Never Used Second Hand Smoke Exposure: No Have you been hit, kicked, punched, or otherwise hurt by someone within the past year? If so, by whom?: No Are you DNR?: No Advance Directives: No Advance Directives Information Provided: Yes Advance Directives on File: No service: No Current occupational status: employed and retired Cognitive needs: No Hearing needs: No Vision needs: No Meds Allergies Allergy/AdvReac Type Severity Reaction Status Date / Time prednisone Allergy Severe severe Verified 05/20/22 12:16 headaches Home Medications Medication Instructions Recorded Confirmed Last Taken Type citalopram 10 mg/5 mL oral solution PO DAILY 07/07/20 05/20/22 06/02/22 History dextroamphetamine-amphetamine ER 1 cap PO DAILY 07/07/20 05/20/22 Unknown History 10 mg 24hr capsule,extend release flu vac qs 2019(4 yr up)CD(PF) 60 ml IM 07/07/20 05/20/22 Unknown History mcg(15 mcgx4)/0.5 mL IM syringe lorazepam 0.5 mg tablet 1 mg PO BID 07/07/20 05/20/22 06/02/22 History levetiracetam 500 mg tablet 500 mg PO BID 05/20/22 05/20/22 06/02/22 History Exam Exam Date and Time: June 01, 2022 1143 Height,Weight and Vital Signs: Height 6 ft Weight 95.254 kg Pertinent Lab Results Pertinent Lab Results: Laboratory Tests 02/08/22 02/08/22 15:14 15:14 WBC 15.5 H Hgb 15.9 Hct 46.9 Plt Count 155 L Sodium 138 Potassium 5.1 Chloride 108 Carbon Dioxide 23 BUN 11 Creatinine 0.90 Narrative Narrative: EKG 01/2022 Vent. Rate : 092 BPM ? ? Atrial Rate : 092 BPM ?? P-R Int : 182 ms? QRS Dur : 088 ms ? ? QT Int : 370 ms ? ? ? P-R-T Axes : 051 -30 054 degrees ?? QTc Int : 457 ms ? Normal sinus rhythm Left axis deviation Borderline ECG When compared with ECG of 09-JAN-2010 09:49, QT has lengthened Assessment and Plan Assessment Anesthesia Assessment: Chart Reviewed Documented by User: Suzanne Sanchez MD 06/02/22 11:54 PMFSH Past Medical History Medical History Depression Excessive daytime sleepiness Family history of colon cancer Insomnia Seizures Sinus headache Functional capacity: independent ambulation Family History Family History Father Colon cancer Mother Unknown family medical history Dementia associated with alcoholism Brother Cirrhosis Substance use disorder Son No problems noted. Son No problems noted. Family history of problems with anesthesia: No Surgical History Surgical History History of hernia repair Hx of cholecystectomy Hx of colonoscopy History of Problems with Anesthesia: No Social History Social History Housing: House Are you a primary skin care consultant to a significant other at home: No Do you presently have visiting nurse or other home services: No Alcohol intake: never Patient Tobacco Use Status: Never used Tobacco e-Cigarette/Vaping Use: Never Used Second Hand Smoke Exposure: No Have you been hit, kicked, punched, or otherwise hurt by someone within the past year? If so, by whom?: No Are you DNR?: No Advance Directives: No Advance Directives Information Provided: Yes Advance Directives on File: No service: No Current occupational status: employed and retired Cognitive needs: No Hearing needs: No Vision needs: No Meds Allergies Allergy/AdvReac Type Severity Reaction Status Date / Time prednisone Allergy Severe severe Verified 05/20/22 12:16 headaches Home Medications Medication Instructions Recorded Confirmed Last Taken Type citalopram 10 mg/5 mL oral solution PO DAILY 07/07/20 05/20/22 06/02/22 History dextroamphetamine-amphetamine ER 1 cap PO DAILY 07/07/20 05/20/22 Unknown History 10 mg 24hr capsule,extend release flu vac 2019(4 yr up)CD(PF) 60 ml IM 07/07/20 05/20/22 Unknown History mcg(15 mcgx4)/0.5 mL IM syringe lorazepam 0.5 mg tablet 1 mg PO BID 07/07/20 05/20/22 06/02/22 History levetiracetam 500 mg tablet 500 mg PO BID 05/20/22 05/20/22 06/02/22 History Exam Airway Mallampati Class: II TM Dist: >3cm Neck ROM: Full Heart: RRR Lungs: CTA Assessment and Plan Final Anesthetic Review Family History of Problems with Anesthesia: No History of Problems with Anesthesia: No ASA Class: II Final Preanesthetic Review: No Changes in Pt Med Stat, Meds/Allgs Chart Reviewed, Consent Obtained/Reviewed and Anes Risks/Benef Reviewed Patient Risk: Low Procedure Risk: Low Anesthetic Plan Anesthetic Plan: MAC: Disposition: Standard PACU
[2022-06-02 11:48] VITALS: BP 138/103; PULSE 97; RESP 18; TEMP 36.8; O2SAT 98; BMI 28.0
--- NOTE | 2022-06-02 11:57 | MHC.SHP ---
Pre-Procedural Eval Section A Date of Service: 06/02/22 Section B Chief Complaint: screening Details of Present Illness: crc father Relevant Family History (Specify if Yes): Yes Relevant Social History: None Present Medications: see Short Stay Collaborative assessment Medical History: Significant History (Depression Excessive daytime sleepiness Family history of colon cancer Insomnia Seizures Sinus headache) History of Previous Operations: Relevant previous surgery/procedure and date(s) (History of hernia repair Hx of cholecystectomy Hx of colonoscopy) Allergies: Allergies Allergy/AdvReac Type Severity Reaction Status Date / Time prednisone Allergy Severe severe Verified 05/20/22 12:16 headaches Review of Systems Sugical H&P ROS: Negative: Constitution, Cardiovascular, Respiratory, Neurological, Psychiatric, Hem-Onc, Allergic/Immunologic, Gastrointestinal, Genitourinary, Musculoskeletal, Integumentary, Endocrine and Eyes/Ears/Nose/Throat Exam Surgical H&P Exam: Normal: HEENT, Normal: Heart, Normal: Lungs, Normal: Extremities, Normal: Abdomen, Normal: Skin and Normal: Neurological Plan Diagnosis/Plan: Unchanged I have reviewed the history and physical and performed a pertinent physical examination on my patient. No changes have occurred unless specified.
[2022-06-02] MEDS: Lactated Ringers 1,000 ML 100 ML IVCONT (12:11)
--- NOTE | 2022-06-02 12:41 | W.PM.OPN ---
Operative Note Operative Note Date of Service: 06/02/22 Narrative: Operative Information Procedure Description: Colonoscopy Indication: screening, FH of colon cancer Anesthesia: MAC COLONOSCOPY Instrument: Olympus variable stiffness pediatric scope 190L Colonoscopy Monitoring: Vital signs and clinical assessment, continuous EKG monitoring, Pulse oximetry, Carbon Dioxide monitoring and blood pressure monitoring were done throughout the procedure. Colon withdrawal time was 13 minutes. Procedure: The patient was placed in the left lateral decubitis position and pre-procedure medications were administered. After a digital rectal examination of the ano-rectum, the video colonoscope was inserted into the rectum and advanced through the colon to the cecum/TI. The colonoscope was slowly withdrawn in a retrograde panoramic fashion and the colon mucosa was carefully examined including a retroflexed view of the rectum. Findings and interventions are described below. Procedure Difficulty: easy Findings: Terminal Ileum-normal Cecum:normal Ascending Colon: normal Transverse Colon -normal Descending Colon: x 2 sessile polyps removed with cold snare 4-7 mm Sigmoid Colon: normal Rectum: Retroflexion with small internal hemorrhoids, grade I, 9-10 mm sessile polyp removed with cold snare and x1 clip applied for hemostasis Anorectum - normal Colon preparation: [place] Bowel Preparation Scale Right colon; 3 Transverse colon: 3 Left colon; 3 (0 = Unprepared colon segment with mucosa not seen due to solid stool that cannot be cleared. 1 = Portion of mucosa of the colon segment seen, but other areas of the colon segment not well seen due to staining, residual stool and/or opaque liquid. 2 = Minor amount of residual staining, small fragments of stool and/or opaque liquid, but mucosa of colon segment seen well. 3 = Entire mucosa of colon segment seen well with no residual staining, small fragments of stool or opaque liquid) Impression and Post Procedure Diagnosis: polyps internal hemorrhoids Plan: High fiber diet leaflet Avoid straining at stool, epsom salts and sitz bath, anusol supps or cream Repeat Colonoscopy in 5 years due to polyps and FH or earlier if clinically indicated Above findings were reviewed with the patient and relevant handouts were provided if indicated.
[2022-06-02 12:46] VITALS: BP 117/73; PULSE 82; RESP 16; TEMP 36.1; O2SAT 96
[2022-06-02 13:01] VITALS: BP 114/76; PULSE 79; RESP 18; TEMP 36.1; O2SAT 98
--- NOTE | 2022-06-02 13:27 | HO.POSTANES ---
Post Anesthesia Evaluation Post Anesthesia Evaluation Vital Signs: Vital Signs Temp Pulse Resp BP Pulse Ox O2 Del Method 06/02/22 13:01 97.0 F 79 18 114/76 98 Room Air 06/02/22 12:46 97.0 F 82 16 117/73 96 Room Air 06/02/22 11:48 98.2 F 97 18 138/103 H 98 Room Air Anesthesia: Monitored Mental Status: Awake Pain Control: Satisfactory Nausea/Vomiting: None Hydration: Adequate Anesthesia-Related Issues: No Anes. Related Issues
== END 2022-06-02 14:08 | disposition home or self-care (01) ==
PROVIDERS: PCP Internal Medicine; Visit Provider Internal Medicine Gastroenterology
PROC: 0DJD8ZZ Inspection of Lower Intestinal Tract, Via Natural or Artificial Opening Endoscopic (ICD-10-PCS; CPT 45378; principal; 2022-06-02 12:30)
DX: Z12.11 Encounter for screening for malignant neoplasm of colon (principal); Z80.0 Family history of malignant neoplasm of digestive organs; D12.4 Benign neoplasm of descending colon; D12.8 Benign neoplasm of rectum; K64.0 First degree hemorrhoids; I10 Essential (primary) hypertension; E78.00 Pure hypercholesterolemia, unspecified; G47.33 Obstructive sleep apnea (adult) (pediatric); G40.909 Epilepsy, unspecified, not intractable, without status epilepticus; Z79.51 Long term (current) use of inhaled steroids; Z79.899 Other long term (current) drug therapy; Z88.8 Allergy status to other drugs, medicaments and biological substances; Z90.49 Acquired absence of other specified parts of digestive tract
CPT/HCPCS: 45385; 88305

== ENCOUNTER 2022-08-17 09:08 | Outpatient (REF) | payer OTHER, SELFPAY ==
[2022-08-17 11:30] LABS: Appearance Urine Turbid; Color Urine Yellow; Glucose Urine UA Negative (Negative); Leukocyte Esterase Urine Negative (Negative); Nitrite Urine Negative (Negative); PH 5.5 (5.0-9.0); Specific Gravity - Urine >= 1.030 (1.005-1.025); Urine Blood Negative (Negative); Urine Ketones Negative (Negative); Urine Protein Negative (Neg-Trace)
[2022-08-17 11:38] LABS: MANUAL DIFF FLAG NO
[2022-08-17 11:57] LABS: Basophils Percent Auto 0.7 % (0-2); Eosinophils Absolute Auto 0.2 X10*3/uL (0.0-0.4); Eosinophils Percent Auto 3.4 % (0-4); Hematocrit 47.9 % (42.0-52.0); Hemoglobin 15.6 g/dl (14.0-18.0); Imm Gran Abs Auto 0.01 X10*3/uL (0.00-0.03); Imm Gran Pct Auto 0.2 % (0.0-0.4); Lymphocytes Absolute Auto 1.5 X10*3/uL (1.2-4.9); Lymphocytes Percent Auto 28.7 % (20-40); Mean Corpuscular HGB Conc 32.6 g/dl (31.0-36.0); Mean Corpuscular Hemoglobin 30.8 pg (27.0-33.0); Mean Corpuscular Volume 94.7 fL (80.0-98.0); Mean Platelet Volume 11.8 fL (9.4-12.4); Monocytes Absolute Auto 0.4 X10*3/uL (0.1-1.2); Monocytes Percent Auto 7.3 % (2-11); Neutrophils Absolute Auto 3.2 x10*3/uL (2.0-8.3); Neutrophils Percent Auto 59.7 % (45-73); Platelet Count 163 X10*3/uL (160-400); Red Blood Count 5.06 X10*6/uL (4.60-5.80); Red Cell Distribution Width 12.2 % (11.0-16.0); White Blood Count 5.4 X10*3/uL (4.8-10.8)
[2022-08-17 13:07] LABS: Alanine Aminotransferase 27 U/L (0-40); Albumin Level 4.2 g/dL (3.5-5.0); Alkaline Phosphatase 100 U/L (39-117); Anion Gap 11 (12-20); Aspartate Amino Transferase 24 U/L (5-37); Bilirubin Total 0.6 mg/dL (0.0-1.0); Blood Urea Nitrogen 19 mg/dL (9-16); Calcium 8.6 mg/dL (8.4-10.2); Carbon Dioxide 27 mmol/L (22-29); Chloride 107 mmol/L (96-108); Cholesterol 126 mg/dL; Estimated Glomerular Filt Rate > 60; Glucose Fasting 117 mg/dL (60-99); HDL Cholesterol 55 mg/dL; LDL Cholesterol Calculated 61 mg/dl; Potassium 4.7 mmol/L (3.3-5.1); Prostate Specific Antigen Scr 2.58 ng/mL (<0.05-4.0); Sodium 140 mmol/L (135-145); TSH reflex Free T4 2.07 uIU/mL (0.32-4.0); Total Protein 6.6 g/dL (6.5-8.0); Triglycerides 52 mg/dL
== END 2022-08-17 09:09 | disposition home or self-care (01) ==
LOC: HO.HMGCLDS 09:08
PROVIDERS: PCP Nurse Practitioner Family; Visit Provider Nurse Practitioner Family
DX: Z00.00 Encounter for general adult medical examination without abnormal findings (principal); Z12.5 Encounter for screening for malignant neoplasm of prostate
CPT/HCPCS: 36415; 80053; 80061; 81003; 84153; 84443; 85025

== ENCOUNTER → 2022-09-28 14:15 | Outpatient (BNVA) | payer OTHER, SELFPAY | PROVIDERS: PCP Nurse Practitioner Family; Visit Provider Surgery | DX: Z13.89 Encounter for screening for other disorder (principal) ==

== ENCOUNTER 2023-02-22 08:50 | Outpatient (REF) | payer OTHER, SELFPAY ==
[2023-02-22 11:16] LABS: Appearance Urine Cloudy; Color Urine Yellow; Glucose Urine UA Negative (Negative); Leukocyte Esterase Urine Negative (Negative); Nitrite Urine Negative (Negative); PH 5.5 (5.0-9.0); Specific Gravity - Urine 1.025 (1.005-1.025); Urine Blood Negative (Negative); Urine Ketones Trace mg/dL (Negative); Urine Protein Negative (Neg-Trace)
[2023-02-22 12:10] LABS: Alanine Aminotransferase 28 U/L (0-40); Albumin Level 4.2 g/dL (3.5-5.0); Alkaline Phosphatase 95 U/L (39-117); Anion Gap 11 (12-20); Aspartate Amino Transferase 28 U/L (5-37); Bilirubin Total 0.7 mg/dL (0.0-1.0); Blood Urea Nitrogen 9 mg/dL (9-16); Calcium 8.8 mg/dL (8.4-10.2); Carbon Dioxide 25 mmol/L (22-29); Chloride 109 mmol/L (96-108); Estimated Glomerular Filt Rate > 60; Glucose Fasting 112 mg/dL (60-99); Potassium 3.8 mmol/L (3.3-5.1); Sodium 141 mmol/L (135-145); Total Protein 6.7 g/dL (6.5-8.0)
== END 2023-02-22 08:51 | disposition home or self-care (01) ==
LOC: HO.HMGCLDS 08:50
PROVIDERS: PCP Nurse Practitioner Family; Visit Provider Nurse Practitioner Family
DX: Z00.00 Encounter for general adult medical examination without abnormal findings (principal); R73.01 Impaired fasting glucose
CPT/HCPCS: 36415; 80053; 81003

== ENCOUNTER 2023-05-22 11:01 | Emergency (ER) | payer OTHER, SELFPAY ==
[2023-05-22] VITALS (7 sets, daily range): BP systolic 116–145; BP diastolic 67–82; PULSE 57–85; RESP 18–19; TEMP 36.7–37.1; O2SAT 97–98; BMI 29.8
--- NOTE | ~2023-05-22 | CT_ITS ---
EXAMINATION: HEAD CT WITHOUT CONTRAST CERVICAL SPINE CT WITHOUT CONTRAST CLINICAL INFORMATION: Syncope, head strike COMPARISON: CT head 02/08/2022 TECHNIQUE: Contiguous axial imaging of the head was performed without the administration of IV contrast. Axial multidetector volumetric images were also performed through the cervical spine without contrast. Multiplanar reconstructed images in coronal and sagittal orientations were submitted. DOSE: 1136 mGy-cm FINDINGS: HEAD: There is no evidence of acute intracranial hemorrhage or territorial infarction. No abnormal mass-effect or midline shift. No extra-axial fluid collections. Rao to white matter differentiation is well preserved. Stable mild widening of the sulci of the left lobe predominance. No hydrocephalus. No acute calvarial fracture. The sinuses and mastoid air cells are clear. CERVICAL SPINE: Straightening of the cervical spine curvature. There is anatomic alignment of the vertebral bodies and posterior elements. The atlantoaxial and atlantooccipital articulations are maintained. Vertebral body heights are maintained. No acute fractures seen. Mild degenerative changes at C6-C7. intervertebral disc spaces are relatively maintained. Multilevel facet degeneration. No abnormal prevertebral soft tissue swelling. Central canal is grossly maintained. Visualized lung apices appear unremarkable. No suspicious thyroid findings. CT/CT cervical spine wo IV con IMPRESSION: 1. No CT evidence of acute intracranial hemorrhage or edematous territorial infarction. 2. No CT evidence of acute fracture or malalignment in the cervical spine.
--- NOTE | ~2023-05-22 | CT_ITS ---
EXAMINATION: HEAD CT WITHOUT CONTRAST CERVICAL SPINE CT WITHOUT CONTRAST CLINICAL INFORMATION: Syncope, head strike COMPARISON: CT head 02/08/2022 TECHNIQUE: Contiguous axial imaging of the head was performed without the administration of IV contrast. Axial multidetector volumetric images were also performed through the cervical spine without contrast. Multiplanar reconstructed images in coronal and sagittal orientations were submitted. DOSE: 1136 mGy-cm FINDINGS: HEAD: There is no evidence of acute intracranial hemorrhage or territorial infarction. No abnormal mass-effect or midline shift. No extra-axial fluid collections. Rao to white matter differentiation is well preserved. Stable mild widening of the sulci of the left lobe predominance. No hydrocephalus. No acute calvarial fracture. The sinuses and mastoid air cells are clear. CERVICAL SPINE: Straightening of the cervical spine curvature. There is anatomic alignment of the vertebral bodies and posterior elements. The atlantoaxial and atlantooccipital articulations are maintained. Vertebral body heights are maintained. No acute fractures seen. Mild degenerative changes at C6-C7. intervertebral disc spaces are relatively maintained. Multilevel facet degeneration. No abnormal prevertebral soft tissue swelling. Central canal is grossly maintained. Visualized lung apices appear unremarkable. No suspicious thyroid findings. CT/CT head/brain wo IV con IMPRESSION: 1. No CT evidence of acute intracranial hemorrhage or edematous territorial infarction. 2. No CT evidence of acute fracture or malalignment in the cervical spine.
--- NOTE | 2023-05-22 11:17 | ED_ITS ---
HPI - General Adult General Chief complaint: Fall Stated complaint: Unwitnessed syncopal episode Time Seen by Provider: 05/22/23 11:44 Related Data Home Medications Medication Instructions Recorded Confirmed citalopram 10 mg/5 mL oral solution PO DAILY 07/07/20 03/01/23 dextroamphetamine-amphetamine ER 1 cap PO DAILY 07/07/20 03/01/23 10 mg 24hr capsule,extend release lorazepam 0.5 mg tablet 1 mg PO BID 07/07/20 03/01/23 levetiracetam 750 mg tablet 750 mg PO BID 07/08/22 03/01/23 Previous Rx's Medication Instructions Recorded atorvastatin 80 mg tablet 80 mg PO DAILY #90 tabs 12/08/22 lisinopril 10 mg tablet 10 mg PO DAILY #90 tabs 03/12/23 Allergies Allergy/AdvReac Type Severity Reaction Status Date / Time prednisone Allergy Severe severe Verified 05/22/23 11:23 headaches PMFSH Past Medical History Medical History Depression Excessive daytime sleepiness Family history of colon cancer Ichthyosis Insomnia Seizures Sinus headache Surgical History History of hernia repair Hx of cholecystectomy Hx of colonoscopy Family History Family History Father Colon cancer Mother Unknown family medical history Dementia associated with alcoholism Brother Cirrhosis Substance use disorder Son No problems noted. Son No problems noted. Social History Social History Housing: House Are you a primary ambulatory care coordinator to a significant other at home: No Do you presently have visiting nurse or other home services: No Alcohol intake: never Patient Tobacco Use Status: Never used Tobacco Smoked in Last 30 Days: No e-Cigarette/Vaping Use: Never Used Second Hand Smoke Exposure: No Use of substances other than those prescribed or required for medical reasons: Yes Substance Use Type: Marijuana Advance Directives: No Advance Directives Information Provided: No service: No Current occupational status: employed and retired Cognitive needs: No Hearing needs: No Vision needs: No Physical Exam ED Vital Signs: Vital Signs - 24 hr 05/22/23 11:16 05/22/23 11:59 05/22/23 11:24 Temperature 98.7 F Pulse Rate 82 68 85 Respiratory Rate 18 Blood Pressure 116/71 124/67 127/81 Pulse Oximetry 98 Oxygen Delivery Method Room Air 05/22/23 12:01 05/22/23 12:37 05/22/23 14:36 Temperature 98.1 F Pulse Rate 85 66 57 Respiratory Rate 18 19 Blood Pressure 116/82 124/69 126/77 Pulse Oximetry 98 97 Oxygen Delivery Method Room Air Room Air 05/22/23 14:56 05/22/23 14:56 05/22/23 14:56 Temperature Pulse Rate 63 66 80 Respiratory Rate Blood Pressure 134/68 145/80 H 134/82 Pulse Oximetry Oxygen Delivery Method BMI result Body Mass Index 29.8 Course Course Course Narrative: This is an RME: Additional HPI, ROS, PE not included below will be deferred to primary provider. Patient is a 68-year-old male presents emergency department for evaluation after syncope. He reports that he Awoke at 0200 to have a bowel movement, while walking into bathroom felt weak, legs weak, diaphoresis, attempted to reach for a cold glass of water as this has helped this scenario in the past, then syncompised, fell off of the toilet to the ground. When he r egained consciousness he was able to get himself back to the, some pain to the posterior aspect of his head and felt a palpable lump. Awoke again a few times throughout the night without issue. When he woke at 0700 he called his ex-spouse who advised coming to the ED for evaluation. At this time he denies dizziness, neck pain, chest pain, shortness of breath, numbness or tingling of the extremities. Plan: CT head/cervical spine, serum labs, EKG, orthostatic VS Reevaluation(s) Reevaluation #1: see additional note from Mervat Simmons MD for full HPI, ROS, PE, MDM Medications Administered Discontinued Medications Generic Name Dose Route Start Last Admin Trade Name Freq PRN Reason Stop Dose Admin Sodium Chloride 1,000 mls @ 999 mls/hr 05/22/23 13:30 05/22/23 14:44 Ns IVCONT 05/22/23 14:30 Infused .Q1H1M GIORGIO Infusion Sodium Chloride 1,000 mls @ 999 mls/hr 05/22/23 15:00 05/22/23 14:57 Ns IVCONT 05/22/23 16:00 999 mls/hr .Q1H1M GIORGIO Administration Medical Decision Making Lab Data 05/22/23 12:09 05/22/23 12:09 Labs: Lab Results 05/22/23 05/22/23 05/22/23 Range/Units 12:09 12:09 12:09 WBC 8.8 (4.8-10.8) X10*3/uL RBC 5.25 (4.60-5.80) X10*6/uL Hgb 16.1 (14.0-18.0) g/dl Hct 47.1 (42.0-52.0) % MCV 89.7 (80.0-98.0) fL MCH 30.7 (27.0-33.0) pg MCHC 34.2 (31.0-36.0) g/dl RDW 12.6 (11.0-16.0) % Plt Count 174 (160-400) X10*3/uL MPV 11.7 (9.4-12.4) fL Immature Gran % (Auto) 0.2 (0.0-0.4) % Neut % (Auto) 79.3 H (45-73) % Lymph % (Auto) 14.3 L (20-40) % [place] % (Auto) 5.7 (2-11) % Eos % (Auto) 0.0 (0-4) % Baso % (Auto) 0.5 (0-2) % Lymph # (Auto) 1.3 (1.2-4.9) X10*3/uL [place] # (Auto) 0.5 (0.1-1.2) X10*3/uL Eos # (Auto) 0.0 (0.0-0.4) X10*3/uL Baso # (Auto) 0.0 (0.0-0.2) X10*3/uL Abs Immat Gran (auto) 0.02 (0.00-0.03) X10*3/uL Absolute Neuts (auto) 7.0 (2.0-8.3) x10*3/uL Absolute Nucleated RBC 0.000 (0.0-0.012) X10*3/uL Nucleated RBC % (auto) 0.0 (0.0-0.2) /100WBC Sodium 137 (135-145) mmol/L Potassium 4.2 (3.3-5.1) mmol/L Chloride 104 (96-108) mmol/L Carbon Dioxide 23 (22-29) mmol/L Anion Gap 14 (12-20) BUN 13 (9-16) mg/dL Creatinine 1.11 (0.5-1.4) mg/dL Estim Creat Clear Calc 78.9 Estimated GFR > 60 Random Glucose 131 H (60-115) mg/dL Calcium 9.3 (8.4-10.2) mg/dL Magnesium 2.2 (1.6-2.6) mg/dL Total Bilirubin 0.8 (0.0-1.0) mg/dL AST 30 (5-37) U/L ALT 27 (0-40) U/L Alkaline Phosphatase 84 (39-117) U/L Troponin I High Sens (<3.5-35.0) ng/L B-Natriuretic Peptide < 10 (<100) pg/mL Total Protein 7.7 (6.5-8.0) g/dL Albumin 4.6 (3.5-5.0) g/dL Urine Color Urine Appearance Urine pH (5.0-9.0) Ur Specific [place] (1.005-1.025) Urine Protein (Neg-Trace) mg/dL Urine Glucose (UA) (Negative) mg/dL Urine Ketones (Negative) mg/dL Urine Blood (Negative) Urine Nitrite (Negative) Ur Leukocyte Esterase (Negative) 05/22/23 05/22/23 Range/Units 12:09 13:57 WBC (4.8-10.8) X10*3/uL RBC (4.60-5.80) X10*6/uL Hgb (14.0-18.0) g/dl Hct (42.0-52.0) % MCV (80.0-98.0) fL MCH (27.0-33.0) pg MCHC (31.0-36.0) g/dl RDW (11.0-16.0) % Plt Count (160-400) X10*3/uL MPV (9.4-12.4) fL Immature Gran % (Auto) (0.0-0.4) % Neut % (Auto) (45-73) % Lymph % (Auto) (20-40) % [place] % (Auto) (2-11) % Eos % (Auto) (0-4) % Baso % (Auto) (0-2) % Lymph # (Auto) (1.2-4.9) X10*3/uL [place] # (Auto) (0.1-1.2) X10*3/uL Eos # (Auto) (0.0-0.4) X10*3/uL Baso # (Auto) (0.0-0.2) X10*3/uL Abs Immat Gran (auto) (0.00-0.03) X10*3/uL Absolute Neuts (auto) (2.0-8.3) x10*3/uL Absolute Nucleated RBC (0.0-0.012) X10*3/uL Nucleated RBC % (auto) (0.0-0.2) /100WBC Sodium (135-145) mmol/L Potassium (3.3-5.1) mmol/L Chloride (96-108) mmol/L Carbon Dioxide (22-29) mmol/L Anion Gap (12-20) BUN (9-16) mg/dL Creatinine (0.5-1.4) mg/dL Estim Creat Clear Calc Estimated GFR Random Glucose (60-115) mg/dL Calcium (8.4-10.2) mg/dL Magnesium (1.6-2.6) mg/dL Total Bilirubin (0.0-1.0) mg/dL AST (5-37) U/L ALT (0-40) U/L Alkaline Phosphatase (39-117) U/L Troponin I High Sens 15.7 (<3.5-35.0) ng/L B-Natriuretic Peptide (<100) pg/mL Total Protein (6.5-8.0) g/dL Albumin (3.5-5.0) g/dL Urine Color Yellow Urine Appearance Clear Urine pH 5.5 (5.0-9.0) Ur Specific [place] 1.015 (1.005-1.025) Urine Protein Negative (Neg-Trace) mg/dL Urine Glucose (UA) Negative (Negative) mg/dL Urine Ketones Trace (Negative) mg/dL Urine Blood Negative (Negative) Urine Nitrite Negative (Negative) Ur Leukocyte Esterase Negative (Negative) Discharge Plan Discharge Clinical Impression: Head injury, Syncope Patient Disposition: Home, Self-Care Instructions: Syncope (DC), Head Injury (ED) Additional Instructions: You been evaluated for head injury and passing out. Your CT scan of the head was normal your blood work and electrocardiogram was normal. We discussed passive possible admission but rather go home, return if you worse otherwise follow-up with your primary care physician call in a.m. Prescriptions: No Action atorvastatin 80 mg tablet 80 mg PO DAILY Qty: 90 2RF lisinopril 10 mg tablet 10 mg PO DAILY Qty: 90 0RF dextroamphetamine-amphetamine 10 mg capsule,extended release 24hr 1 cap PO DAILY citalopram 10 mg/5 mL solution PO DAILY lorazepam 0.5 mg tablet 1 mg PO BID levetiracetam 750 mg tablet 750 mg PO BID Interventions: ED Discharge Assessment Last Done: 05/22/23 15:31 Discharge Date/Time: 05/22/23 15:31
--- NOTE | 2023-05-22 11:23 | ECG_ITS ---
Test Reason : SYNCOPE Blood Pressure : / mmHG Vent. Rate : 068 BPM Atrial Rate : 068 BPM P-R Int : 164 ms QRS Dur : 086 ms QT Int : 420 ms P-R-T Axes : 049 -36 037 degrees QTc Int : 446 ms Normal sinus rhythm Left axis deviation Abnormal ECG When compared with ECG of 08-FEB-2022 14:51, No significant change was found Referred By: Jesenia Miguel Electronically Signed By:ROSY RAYGOZA
--- NOTE | 2023-05-22 11:53 | ED.SYNCOPE ---
HPI - Syncope General Chief Complaint: Fall Stated Complaint: Unwitnessed syncopal episode Time Seen by Provider: 05/22/23 11:44 Source: patient and family Mode of arrival: ambulatory Limitations: no limitations History of Present Illness HPI narrative: This is a 68 years old male presented to the emergency department with chief complaint of syncope and head injury. He states that around 02:00 o'clock in the morning he went to the bathroom while sitting in the toilet passed out it head in the ground. Then went back to sleep Onset (ago): hour(s) (8) Witnessed: No Context: at rest Injuries sustained associated with event: none Current symptoms: back to baseline Related Data Home Medications Medication Instructions Recorded Confirmed citalopram 10 mg/5 mL oral solution PO DAILY 07/07/20 03/01/23 dextroamphetamine-amphetamine ER 1 cap PO DAILY 07/07/20 03/01/23 10 mg 24hr capsule,extend release lorazepam 0.5 mg tablet 1 mg PO BID 07/07/20 03/01/23 levetiracetam 750 mg tablet 750 mg PO BID 07/08/22 03/01/23 Previous Rx's Medication Instructions Recorded atorvastatin 80 mg tablet 80 mg PO DAILY #90 tabs 12/08/22 lisinopril 10 mg tablet 10 mg PO DAILY #90 tabs 03/12/23 Allergies Allergy/AdvReac Type Severity Reaction Status Date / Time prednisone Allergy Severe severe Verified 05/22/23 11:23 headaches Review of Systems Review of Systems: Yes all other systems are reviewed and are negative Eyes: Eyes: Reports no additional eye complaints Respiratory: Respiratory: Reports no additional respiratory complaints [facility] Past Medical History Medical History Depression Excessive daytime sleepiness Family history of colon cancer Ichthyosis Insomnia Seizures Sinus headache Surgical History History of hernia repair Hx of cholecystectomy Hx of colonoscopy Family History Family History Father Colon cancer Mother Unknown family medical history Dementia associated with alcoholism Brother Cirrhosis Substance use disorder Son No problems noted. Son No problems noted. Social History Social History Housing: House Are you a primary resident care manager rn to a significant other at home: No Do you presently have visiting nurse or other home services: No Alcohol intake: never Patient Tobacco Use Status: Never used Tobacco Smoked in Last 30 Days: No e-Cigarette/Vaping Use: Never Used Second Hand Smoke Exposure: No Use of substances other than those prescribed or required for medical reasons: Yes Substance Use Type: Marijuana Advance Directives: No Advance Directives Information Provided: No service: No Current occupational status: employed and retired Cognitive needs: No Hearing needs: No Vision needs: No Physical Exam Vital Signs: Vital Signs: Last Vital Signs Temp 98.1 F 05/22/23 12:37 Pulse 80 05/22/23 14:56 Resp 19 05/22/23 14:36 BP 134/82 05/22/23 14:56 Pulse Ox 97 05/22/23 14:36 O2 Del Method Room Air 05/22/23 14:36 BMI result Body Mass Index 29.8 Const: General: cooperative Orientation/consciousness: patient oriented x3 Limitations: no limitations HEENT: Head: Yes other (Abrasion scalp are present) Ears: hearing grossly normal bilaterally General nose exam: Normal external nose present Face and sinus: Yes normal facial exam Mouth: Normal oral and palatal mucosa present Teeth and gingiva: dentition normal Throat: Yes posterior oropharynx normal Neck: Neck: Yes normal visual inspection Chest: Chest palpation & inspection: normal inspection of the chest Breast/axilla inspection: normal inspection of the breasts Resp: Effort & Inspection: normal respiratory effort Auscultation: clear to auscultation bilaterally Cardio: Jugular venous distension: no JVD Rate: regular rate Rhythm: regular rhythm GI: Inspection: Yes normal to inspection Palpation (GI): Soft to palpation, not firm, nontender and no guarding Percussion: Yes normal to percussion : General: Yes no CVA tenderness Back/Spine/Pelvis: Back: no CVA tenderness Neuro: General: patient oriented x3 Course Reevaluation(s) Reevaluation #1: Patient remained asymptomatic with stable vital signs, his workup is essentially negative including a CT electrocardiogram a high sensitive troponin electrolytes. I had long discussion with the patient 2 sons and the , I discuss possible admission include the awake overnight monitor however the patient wants to go home , I explained to the patient and family that most likely is a vasovagal episode however he was not in the awake overnight monitor during the episode and can no rule out an arrhythmia. The patient wants to be discharged home he is comfortable to go home Time: 14:48 Medications Administered Discontinued Medications Generic Name Dose Route Start Last Admin Trade Name Melissa PRN Reason Stop Dose Admin Sodium Chloride 1,000 mls @ 999 mls/hr 05/22/23 13:30 05/22/23 14:44 Ns IVCONT 05/22/23 14:30 Infused .Q1H1M GIORGIO Infusion Sodium Chloride 1,000 mls @ 999 mls/hr 05/22/23 15:00 05/22/23 14:57 Ns IVCONT 05/22/23 16:00 999 mls/hr .Q1H1M GIORGIO Administration Medical Decision Making Medical Decision Making [facility] Narrative: Patient presented with a syncopal episode the this morning will obtain labs EKG imaging of the brain and lab test @02:48 remain asymptomatic, workup negative, shared decision-making with the patient and family member (ex and 2 children) discussed admission under telemetry patient was to go home. Patient states that this happened to him multiple times in the past when he goes to the bathroom. Differential Diagnosis Differential Diagnoses: The differential diagnosis associated with the presentation includes Arrhythmia/subdural hematoma/ epidural hematoma Admission/Observation Consideration of admission/observation: Escalation of care including admission/observation considered Lab Data MDM Lab Attestation statement: I reviewed the patient's lab results. 05/22/23 12:09 05/22/23 12:09 Labs: Lab Results 05/22/23 05/22/23 05/22/23 Range/Units 12:09 12:09 12:09 WBC 8.8 (4.8-10.8) X10*3/uL RBC 5.25 (4.60-5.80) X10*6/uL Hgb 16.1 (14.0-18.0) g/dl Hct 47.1 (42.0-52.0) % MCV 89.7 (80.0-98.0) fL MCH 30.7 (27.0-33.0) pg MCHC 34.2 (31.0-36.0) g/dl RDW 12.6 (11.0-16.0) % Plt Count 174 (160-400) X10*3/uL MPV 11.7 (9.4-12.4) fL Immature Gran % (Auto) 0.2 (0.0-0.4) % Neut % (Auto) 79.3 H (45-73) % Lymph % (Auto) 14.3 L (20-40) % [place] % (Auto) 5.7 (2-11) % Eos % (Auto) 0.0 (0-4) % Baso % (Auto) 0.5 (0-2) % Lymph # (Auto) 1.3 (1.2-4.9) X10*3/uL [place] # (Auto) 0.5 (0.1-1.2) X10*3/uL Eos # (Auto) 0.0 (0.0-0.4) X10*3/uL Baso # (Auto) 0.0 (0.0-0.2) X10*3/uL Abs Immat Gran (auto) 0.02 (0.00-0.03) X10*3/uL Absolute Neuts (auto) 7.0 (2.0-8.3) x10*3/uL Absolute Nucleated RBC 0.000 (0.0-0.012) X10*3/uL Nucleated RBC % (auto) 0.0 (0.0-0.2) /100WBC Sodium 137 (135-145) mmol/L Potassium 4.2 (3.3-5.1) mmol/L Chloride 104 (96-108) mmol/L Carbon Dioxide 23 (22-29) mmol/L Anion Gap 14 (12-20) BUN 13 (9-16) mg/dL Creatinine 1.11 (0.5-1.4) mg/dL Estim Creat Clear Calc 78.9 Estimated GFR > 60 Random Glucose 131 H (60-115) mg/dL Calcium 9.3 (8.4-10.2) mg/dL Magnesium 2.2 (1.6-2.6) mg/dL Total Bilirubin 0.8 (0.0-1.0) mg/dL AST 30 (5-37) U/L ALT 27 (0-40) U/L Alkaline Phosphatase 84 (39-117) U/L Troponin I High Sens (<3.5-35.0) ng/L B-Natriuretic Peptide < 10 (<100) pg/mL Total Protein 7.7 (6.5-8.0) g/dL Albumin 4.6 (3.5-5.0) g/dL Urine Color Urine Appearance Urine pH (5.0-9.0) Ur Specific [place] (1.005-1.025) Urine Protein (Neg-Trace) mg/dL Urine Glucose (UA) (Negative) mg/dL Urine Ketones (Negative) mg/dL Urine Blood (Negative) Urine Nitrite (Negative) Ur Leukocyte Esterase (Negative) 05/22/23 05/22/23 Range/Units 12:09 13:57 WBC (4.8-10.8) X10*3/uL RBC (4.60-5.80) X10*6/uL Hgb (14.0-18.0) g/dl Hct (42.0-52.0) % MCV (80.0-98.0) fL MCH (27.0-33.0) pg MCHC (31.0-36.0) g/dl RDW (11.0-16.0) % Plt Count (160-400) X10*3/uL MPV (9.4-12.4) fL Immature Gran % (Auto) (0.0-0.4) % Neut % (Auto) (45-73) % Lymph % (Auto) (20-40) % [place] % (Auto) (2-11) % Eos % (Auto) (0-4) % Baso % (Auto) (0-2) % Lymph # (Auto) (1.2-4.9) X10*3/uL [place] # (Auto) (0.1-1.2) X10*3/uL Eos # (Auto) (0.0-0.4) X10*3/uL Baso # (Auto) (0.0-0.2) X10*3/uL Abs Immat Gran (auto) (0.00-0.03) X10*3/uL Absolute Neuts (auto) (2.0-8.3) x10*3/uL Absolute Nucleated RBC (0.0-0.012) X10*3/uL Nucleated RBC % (auto) (0.0-0.2) /100WBC Sodium (135-145) mmol/L Potassium (3.3-5.1) mmol/L Chloride (96-108) mmol/L Carbon Dioxide (22-29) mmol/L Anion Gap (12-20) BUN (9-16) mg/dL Creatinine (0.5-1.4) mg/dL Estim Creat Clear Calc Estimated GFR Random Glucose (60-115) mg/dL Calcium (8.4-10.2) mg/dL Magnesium (1.6-2.6) mg/dL Total Bilirubin (0.0-1.0) mg/dL AST (5-37) U/L ALT (0-40) U/L Alkaline Phosphatase (39-117) U/L Troponin I High Sens 15.7 (<3.5-35.0) ng/L B-Natriuretic Peptide (<100) pg/mL Total Protein (6.5-8.0) g/dL Albumin (3.5-5.0) g/dL Urine Color Yellow Urine Appearance Clear Urine pH 5.5 (5.0-9.0) Ur Specific [place] 1.015 (1.005-1.025) Urine Protein Negative (Neg-Trace) mg/dL Urine Glucose (UA) Negative (Negative) mg/dL Urine Ketones Trace (Negative) mg/dL Urine Blood Negative (Negative) Urine Nitrite Negative (Negative) Ur Leukocyte Esterase Negative (Negative) Independent Interpretation I performed an independent interpretation of an: EKG and CT Scan Interpretation: Normal sinus rhythm no ischemic changes Radiology Impression Discussion of test interpretation with radiology: I have reviewed the radiologist's reading. Radiologist Impression: ft lobe predominance. No hydrocephalus. No acute calvarial fracture. The sinuses and mastoid air cells are clear. CERVICAL SPINE: Straightening of the cervical spine curvature. There is anatomic alignment of the vertebral bodies and posterior elements. The atlantoaxial and atlantooccipital articulations are maintained. Vertebral body heights are maintained. No acute fractures seen. Mild degenerative changes at C6-C7. intervertebral disc spaces are relatively maintained. Multilevel facet degeneration. No abnormal prevertebral soft tissue swelling. Central canal is grossly maintained. Visualized lung apices appear unremarkable. No suspicious thyroid findings. CT/CT head/brain wo IV con IMPRESSION: 1. No CT evidence of acute intracranial hemorrhage or edematous territorial infarction. 2. No CT evidence of acute fracture or malalignment in the cervical spine. Dictated By: Aurelio Houser MD Signed By: <Electronically signed by Aurelio Houser MD in OV> 05/22/23 1310 DD/ 1230 Independent Historian Clinical information obtained from an independent historian. History obtained from or confirmed by: Spouse (ex / children) Discharge Plan Discharge Clinical Impression: Head injury, Syncope Patient Disposition: Home, Self-Care Instructions: Syncope (DC), Head Injury (ED) Additional Instructions: You been evaluated for head injury and passing out. Your CT scan of the head was normal your blood work and electrocardiogram was normal. We discussed passive possible admission but rather go home, return if you worse otherwise follow-up with your primary care physician call in a.m. Prescriptions: No Action atorvastatin 80 mg tablet 80 mg PO DAILY Qty: 90 2RF lisinopril 10 mg tablet 10 mg PO DAILY Qty: 90 0RF dextroamphetamine-amphetamine 10 mg capsule,extended release 24hr 1 cap PO DAILY citalopram 10 mg/5 mL solution PO DAILY lorazepam 0.5 mg tablet 1 mg PO BID levetiracetam 750 mg tablet 750 mg PO BID Interventions: ED Discharge Assessment Last Done: 05/22/23 15:31 Discharge Date/Time: 05/22/23 15:31
[2023-05-22 12:22] LABS: MANUAL DIFF FLAG NO
[2023-05-22 12:23] LABS: Basophils Percent Auto 0.5 % (0-2); Hematocrit 47.1 % (42.0-52.0); Hemoglobin 16.1 g/dl (14.0-18.0); Imm Gran Abs Auto 0.02 X10*3/uL (0.00-0.03); Imm Gran Pct Auto 0.2 % (0.0-0.4); Lymphocytes Absolute Auto 1.3 X10*3/uL (1.2-4.9); Lymphocytes Percent Auto 14.3 % (20-40); Mean Corpuscular HGB Conc 34.2 g/dl (31.0-36.0); Mean Corpuscular Hemoglobin 30.7 pg (27.0-33.0); Mean Corpuscular Volume 89.7 fL (80.0-98.0); Mean Platelet Volume 11.7 fL (9.4-12.4); Monocytes Absolute Auto 0.5 X10*3/uL (0.1-1.2); Monocytes Percent Auto 5.7 % (2-11); Neutrophils Percent Auto 79.3 % (45-73); Platelet Count 174 X10*3/uL (160-400); Red Blood Count 5.25 X10*6/uL (4.60-5.80); Red Cell Distribution Width 12.6 % (11.0-16.0); White Blood Count 8.8 X10*3/uL (4.8-10.8)
--- NOTE | 2023-05-22 12:26 | PC.NURSE ---
Patient alert and oriented. Arrived from home after having an unwitnessed syncopal episode this morning around 2am. States had not had a BM since tuesday woke up with the urge to have a BM. While sitting on the toilet patient states he started to sweat and then woke up on the floor. Patient states the he has a hx of syncopal events related to constipation. Reports has a bowel regimen but it doesn't always work.
--- NOTE | 2023-05-22 12:30 | PC.NURSE ---
Patient with small cut to left top side of head. Scant amount of dried blood to area. Denies pain at site.
[2023-05-22 12:38] LABS: Alanine Aminotransferase 27 U/L (0-40); Albumin Level 4.6 g/dL (3.5-5.0); Alkaline Phosphatase 84 U/L (39-117); Anion Gap 14 (12-20); Aspartate Amino Transferase 30 U/L (5-37); Bilirubin Total 0.8 mg/dL (0.0-1.0); Blood Urea Nitrogen 13 mg/dL (9-16); Calcium 9.3 mg/dL (8.4-10.2); Carbon Dioxide 23 mmol/L (22-29); Chloride 104 mmol/L (96-108); Creatinine Clr Calc Pharmacy 78.9; Estimated Glomerular Filt Rate > 60; Glucose Random 131 mg/dL (60-115); Magnesium 2.2 mg/dL (1.6-2.6); Potassium 4.2 mmol/L (3.3-5.1); Sodium 137 mmol/L (135-145); Total Protein 7.7 g/dL (6.5-8.0)
[2023-05-22 12:42] LABS: B Type Natriuretic Peptide < 10 pg/mL (<100)
[2023-05-22 12:46] LABS: Troponin-I High Sensitivity 15.7 ng/L (<3.5-35.0)
[2023-05-22] MEDS: 0.9 % Sodium Chloride 1,000 ML 999 ML IVCONT ×2 (13:29→14:57)
[2023-05-22 14:13] LABS: Appearance Urine Clear; Color Urine Yellow; Glucose Urine UA Negative (Negative); Leukocyte Esterase Urine Negative (Negative); Nitrite Urine Negative (Negative); PH 5.5 (5.0-9.0); Specific Gravity - Urine 1.015 (1.005-1.025); Urine Blood Negative (Negative); Urine Ketones Trace mg/dL (Negative); Urine Protein Negative (Neg-Trace)
--- NOTE | 2023-05-22 15:26 | PC.NURSE ---
Discharge plan reviewed with patient and grandson who verbalized understanding
== END 2023-05-22 15:31 | disposition home or self-care (01) ==
PROVIDERS: Nurse Practitioner Family; Emergency Provider Emergency Medicine; PCP Nurse Practitioner Family
DX: S09.90XA Unspecified injury of head, initial encounter (principal); W18.12XA Fall from or off toilet with subsequent striking against object, initial encounter; Y93.9 Activity, unspecified; Y92.9 Unspecified place or not applicable; Y99.9 Unspecified external cause status; R55 Syncope and collapse
CPT/HCPCS: 36415; 70450; 72125; 80053; 81003; 83735; 83880; 84484; 85025; 93005; 96360; 99285

== ENCOUNTER 2023-06-01 09:18 | Outpatient (REF) | payer OTHER, SELFPAY ==
[2023-06-01 11:26] LABS: Appearance Urine Clear; Color Urine Yellow; Glucose Urine UA Negative (Negative); Leukocyte Esterase Urine Negative (Negative); Nitrite Urine Negative (Negative); PH 5.5 (5.0-9.0); Specific Gravity - Urine 1.025 (1.005-1.025); Urine Blood Negative (Negative); Urine Ketones Negative (Negative); Urine Protein Negative (Neg-Trace)
[2023-06-01 11:47] LABS: MANUAL DIFF FLAG NO
[2023-06-01 11:50] LABS: Basophils Absolute Auto 0.1 X10*3/uL (0.0-0.2); Eosinophils Absolute Auto 0.1 X10*3/uL (0.0-0.4); Eosinophils Percent Auto 1.9 % (0-4); Hematocrit 43.6 % (42.0-52.0); Hemoglobin 14.8 g/dl (14.0-18.0); Imm Gran Abs Auto 0.01 X10*3/uL (0.00-0.03); Imm Gran Pct Auto 0.2 % (0.0-0.4); Immature Retic Fraction 14.5 % (2.3-13.4); Lymphocytes Absolute Auto 1.4 X10*3/uL (1.2-4.9); Lymphocytes Percent Auto 29.2 % (20-40); Mean Corpuscular HGB Conc 33.9 g/dl (31.0-36.0); Mean Corpuscular Volume 91.4 fL (80.0-98.0); Mean Platelet Volume 12.1 fL (9.4-12.4); Monocytes Absolute Auto 0.4 X10*3/uL (0.1-1.2); Monocytes Percent Auto 8.7 % (2-11); Neutrophils Absolute Auto 2.9 x10*3/uL (2.0-8.3); Platelet Count 139 X10*3/uL (160-400); Red Blood Count 4.77 X10*6/uL (4.60-5.80); Red Cell Distribution Width 12.7 % (11.0-16.0); Reticulocyte Percent 1.9 % (0.5-1.8); Reticulocytes Absolute 0.091 X10*6/uL (0.026-0.095); White Blood Count 4.8 X10*3/uL (4.8-10.8)
[2023-06-01 12:46] LABS: Folate 10.3 ng/mL (> or = 4.0); Vitamin B12 318 pg/mL (200-900)
[2023-06-01 12:51] LABS: Alanine Aminotransferase 18 U/L (0-40); Albumin Level 4.3 g/dL (3.5-5.0); Alkaline Phosphatase 83 U/L (39-117); Anion Gap 10 (12-20); Aspartate Amino Transferase 21 U/L (5-37); Bilirubin Total 0.7 mg/dL (0.0-1.0); Blood Urea Nitrogen 11 mg/dL (9-16); Calcium 9.1 mg/dL (8.4-10.2); Carbon Dioxide 25 mmol/L (22-29); Chloride 108 mmol/L (96-108); Cholesterol 114 mg/dL (<200); Estimated Glomerular Filt Rate > 60; Glucose Fasting 113 mg/dL (60-99); HDL Cholesterol 48 mg/dL (>40); Iron 95 mcg/dL (45-160); LDL Cholesterol Calculated 48 mg/dL (<100); Percent Iron Saturation 31 % (15-50); Potassium 4.2 mmol/L (3.3-5.1); Sodium 139 mmol/L (135-145); Total Iron Binding Capacity 303 mcg/dL (228-428); Total Protein 6.9 g/dL (6.5-8.0); Triglycerides 91 mg/dL (<150); Unsaturated Iron Binding 208 ug/dL
[2023-06-01 12:55] LABS: Ferritin 86 ng/mL (20-250); TSH reflex Free T4 1.47 uIU/mL (0.32-4.0)
[2023-06-04 20:39] LABS: A. Phagocytphilium DNA,RT-PCR NOT DETECTED (NOT DETECTED); Babesia Microti DNA, RT-PCR NOT DETECTED (NOT DETECTED); Borrelia Miyamotoi,DNA RT-PCR NOT DETECTED (NOT DETECTED); E.Chaffeensis DNA RT-PCR NOT DETECTED (NOT DETECTED); Lyme(Borrelia ssp)DNA RT-PCR NOT DETECTED (NOT DETECTED)
== END 2023-06-01 09:19 | disposition home or self-care (01) ==
LOC: HO.HMGCLDS 09:18
PROVIDERS: PCP Nurse Practitioner Family; Visit Provider Nurse Practitioner Family
DX: R53.83 Other fatigue (principal); G47.00 Insomnia, unspecified; E78.5 Hyperlipidemia, unspecified
CPT/HCPCS: 36415; 80053; 80061; 81003; 82607; 82728; 82746; 83540; 84443; 85025; 85045; 87468; 87469; 87478; 87484; 87798

== ENCOUNTER 2023-06-07 09:27 | Outpatient (AMB) | payer OTHER, SELFPAY ==
[2023-06-07 09:47] VITALS: BP 118/76; PULSE 80; O2SAT 97; BMI 29.4
--- NOTE | 2023-06-07 09:47 | A.OFFPC_ITS ---
Vital Signs 06/07/23 09:47 Height 6 ft Weight 217 lb BMI 29.4 BP 118/76 Blood Pressure Location Rt brachial Position Sitting Pulse 80 Pulse Source Pulse Oximeter Pulse Oximetry (%) 97 Oxygen Delivery Method Room Air Intake Visit Reasons: 3m follow up depression Allergies prednisone Allergy (Severe, Verified 06/07/23 12:19) severe headaches Medication List - Last Reconciled 06/07/23 by SELENE Owens atorvastatin 80 mg PO DAILY citalopram 10 mg (5 mL) PO DAILY 30 days dextroamphetamine-amphetamine 10 mg ER 1 cap PO DAILY levetiracetam 750 mg PO BID lisinopril 10 mg PO DAILY lorazepam 1 mg PO BID Tobacco use date assessed: 06/07/23 Fall risk assessment: 1 Fall in past year Last assessed Fall Risk: 06/07/23 Dental Screening Dental Screen Date: 06/07/23 Did you have a dental visit in the last 12 months?: Yes Did you have a dental problem in the last 6 months where you did not have access to dental care?: No Was dental information given to patient?: Patient has dentist HPI 3m follow up depression HPI Details Pt was seen in the ER on 05/22 after a syncopal episode which caused him to fall off the toilet and hit his head. Labs including troponin were WNL. EKG was WNL. Head CT was negative for any acute abnormality. Pt was given IV fluids. Pt believes his syncopal episode was related to dehydration, though has a Hx of vasovagal syncope. He has been pushing fluids, recommended sugar free Gatorade watered down. Will order more labs to be drawn next month. Denies fever, chills, and dizziness. pt will call me with further questions or concerns [facility] Medical History Ichthyosis Sinus headache Family history of colon cancer Insomnia Depression Excessive daytime sleepiness Seizures Surgical History Hx of colonoscopy History of hernia repair Hx of cholecystectomy Family History Father Colon cancer Mother Unknown family medical history Dementia associated with alcoholism Brother Cirrhosis Substance use disorder Son No problems noted. Son No problems noted. Social History Housing: House Are you a primary intensive care specialist to a significant other at home: No Do you presently have visiting nurse or other home services: No Alcohol intake: never Patient Tobacco Use Status: Never used Tobacco e-Cigarette/Vaping Use: Never Used Second Hand Smoke Exposure: No Substance Use Type: Marijuana service: No Current occupational status: employed and retired Cognitive needs: No Hearing needs: No Vision needs: No Questionnaire Thrive Questionnaire Date Thrive assessed: 08/24/21 TUYET-7 AMB Questionnaire TUYET-7 Date TUYET - 7 assessed: 08/26/22 Source: Developed by Drs. Victor Manuel Coon, Marilia Ramirez, Sebastian Lucio and colleagues, with an educational marjan from [employer]. Review of Systems Const Reports as per HPI Physical exam (Primary Care) Vital Signs: Last Vital Signs Pulse 80 06/07/23 09:47 BP 118/76 06/07/23 09:47 Pulse Ox 97 06/07/23 09:47 Oxygen Delivery Method Room Air 06/07/23 09:47 BMI result Body Mass Index 29.4 Tobacco/Smoking Status: Tobacco use Status Tobacco use date assessed 06/07/23 06/07/23 09:52 Patient Tobacco Use Status Never used Tobacco 06/07/23 09:52 e-Cigarette/Vaping Use Never Used 06/07/23 09:52 Thrive Assessment: Date of Thrive Assessment Date Thrive assessed 08/24/21 06/07/23 09:52 Const General: cooperative Orientation/consciousness: patient oriented x3 Resp Effort & Inspection: normal respiratory effort Auscultation: clear to auscultation bilaterally Cardio Rate: regular rate Rhythm: regular rhythm Heart sounds: S1 normal heart sound present and S2 normal heart sound present Neuro General: patient oriented x3 Psych Appearance: grossly normal Mental Status: mental status grossly normal Speech and movement: Normal speech and movement present Affect: normal affect Attitude: cooperative Thought process: Normal thought process present Thought content: Normal thought content present Insight: Good insight present (Psych) Judgement: Good judgement present (Psych) Assessment and Plan Assessment & Plan (1) Vasovagal syncope: Code(s): R55 - Syncope and collapse Plan: Labs ordered (2) Screening PSA (prostate specific antigen): Code(s): Z12.5 - Encounter for screening for malignant neoplasm of prostate Plan: PSA ordered (3) Dehydration: Code(s): E86.0 - Dehydration Plan The patient agreed to the use of a medical records coordinator for this encounter. Scribed for JAMSHID Stuart-BC by Cassi Mullen medical records coordinator, on 06/07/2023 at 10:00 EST. Orders: Orders TSH reflex Free T4 Today R55 - Syncope and collapse Complete Blood Count Auto Diff Today R55 - Syncope and collapse Comprehensive [place]. Panel Fast Today R55 - Syncope and collapse UA CC w/rflx Micro + Cult Today R55 - Syncope and collapse Prostate Specific Antigen Scr Today Z12.5 - Encounter for screening for malignant neoplasm of prostate Medications: Changed From citalopram PO DAILY To citalopram 10 mg (5 mL) PO DAILY 150 mL 0RF 30 days Refilled lisinopril 10 mg PO DAILY 90 tabs 0RF atorvastatin 80 mg PO DAILY 90 tabs 2RF Coding Level of Care Code Est Pt Level 3 (68420) Diagnoses Vasovagal syncope R55 Screening PSA (prostate specific antigen) Z12.5 Dehydration E86.0
== END 2023-06-07 10:15 | disposition home or self-care (01) ==
PROVIDERS: PCP Nurse Practitioner Family; Visit Provider Nurse Practitioner Family
DX: R55 Syncope and collapse (principal); Z12.5 Encounter for screening for malignant neoplasm of prostate; E86.0 Dehydration
CPT/HCPCS: 99213

== ENCOUNTER 2023-07-08 09:15 | Outpatient (REF) | payer OTHER, SELFPAY ==
[2023-07-08 11:50] LABS: Appearance Urine Clear; Color Urine Yellow; Glucose Urine UA Negative (Negative); Leukocyte Esterase Urine Negative (Negative); Nitrite Urine Negative (Negative); Urine Blood Negative (Negative); Urine Ketones Negative (Negative); Urine Protein Negative (Neg-Trace)
[2023-07-08 11:54] LABS: MANUAL DIFF FLAG NO
[2023-07-08 12:02] LABS: Basophils Percent Auto 0.8 % (0-2); Eosinophils Absolute Auto 0.1 X10*3/uL (0.0-0.4); Eosinophils Percent Auto 2.5 % (0-4); Hematocrit 43.2 % (42.0-52.0); Hemoglobin 14.5 g/dl (14.0-18.0); Imm Gran Abs Auto 0.01 X10*3/uL (0.00-0.03); Imm Gran Pct Auto 0.2 % (0.0-0.4); Lymphocytes Absolute Auto 1.6 X10*3/uL (1.2-4.9); Lymphocytes Percent Auto 30.5 % (20-40); Mean Corpuscular HGB Conc 33.6 g/dl (31.0-36.0); Mean Corpuscular Hemoglobin 30.7 pg (27.0-33.0); Mean Corpuscular Volume 91.3 fL (80.0-98.0); Mean Platelet Volume 11.7 fL (9.4-12.4); Monocytes Absolute Auto 0.5 X10*3/uL (0.1-1.2); Monocytes Percent Auto 9.3 % (2-11); Neutrophils Absolute Auto 2.9 x10*3/uL (2.0-8.3); Neutrophils Percent Auto 56.7 % (45-73); Platelet Count 152 X10*3/uL (160-400); Red Blood Count 4.73 X10*6/uL (4.60-5.80); Red Cell Distribution Width 12.4 % (11.0-16.0); White Blood Count 5.2 X10*3/uL (4.8-10.8)
[2023-07-08 13:09] LABS: Alanine Aminotransferase 21 U/L (0-40); Albumin Level 4.2 g/dL (3.5-5.0); Alkaline Phosphatase 86 U/L (39-117); Anion Gap 13 (12-20); Aspartate Amino Transferase 25 U/L (5-37); Bilirubin Total 0.4 mg/dL (0.0-1.0); Blood Urea Nitrogen 11 mg/dL (9-16); Calcium 8.7 mg/dL (8.4-10.2); Carbon Dioxide 24 mmol/L (22-29); Chloride 109 mmol/L (96-108); Estimated Glomerular Filt Rate > 60; Glucose Fasting 110 mg/dL (60-99); Sodium 142 mmol/L (135-145); Total Protein 6.8 g/dL (6.5-8.0)
[2023-07-08 13:23] LABS: Prostate Specific Antigen Scr 2.78 ng/mL (<0.05-4.0)
[2023-07-08 13:29] LABS: TSH reflex Free T4 1.32 uIU/mL (0.32-4.0)
== END 2023-07-08 09:16 | disposition home or self-care (01) ==
LOC: HO.HMGCLDS 09:15
PROVIDERS: PCP Nurse Practitioner Family; Visit Provider Nurse Practitioner Family
DX: R55 Syncope and collapse (principal); Z12.5 Encounter for screening for malignant neoplasm of prostate; R53.83 Other fatigue
CPT/HCPCS: 36415; 80053; 81003; 84153; 84443; 85025

== ENCOUNTER 2023-08-25 08:35 | Outpatient (AMB) | payer OTHER, SELFPAY ==
[2023-08-25 08:57] VITALS: BP 110/70; PULSE 80; TEMP 36.9; O2SAT 97; BMI 29.3
--- NOTE | 2023-08-25 08:57 | MHC.OFFWIV ---
Intake Vital Signs 08/25/23 08:57 Height 6 ft Weight 216 lb BMI 29.3 BP 110/70 Blood Pressure Location Lt brachial Position Sitting Pulse 80 Pulse Source Pulse Oximeter Temp 98.4 F Pulse Oximetry (%) 97 Intake Visit Reasons: EST/body aches/chills (lobby masked) Intake Note: pt is here for c/o bosy aches, chills Patient Tobacco Use Status: Never used Tobacco Allergies prednisone Allergy (Severe, Verified 08/25/23 08:59) severe headaches Do you need a note to return to daycare/school/sports/work: Yes HPI HPI Comments History of Present Illness Details This is a 68-year-old male with a past medical history of hypertension, hyperlipidemia and gastroesophageal reflux disease presenting for evaluation of sore throat, chills, body aches, headache and subjective fever that suddenly started yesterday afternoon. Patient states that his ex-, he spent the weekend shopping with had similar symptoms and was prescribed Tamiflu. The patient has received is immunization for influenza approximately 3 weeks ago. Patient has been taking Tylenol for his subjective fevers. Patient denies having any shortness of breath, chest pain, ear pain, nausea, vomiting, diarrhea or abdominal pain. [facility] Medical History Ichthyosis Sinus headache Family history of colon cancer Insomnia Depression Excessive daytime sleepiness Seizures Surgical History Hx of colonoscopy History of hernia repair Hx of cholecystectomy Family History Father Colon cancer Mother Unknown family medical history Dementia associated with alcoholism Brother Cirrhosis Substance use disorder Son No problems noted. Son No problems noted. Social History Housing: House Are you a primary outdoor emergency care technician to a significant other at home: No Do you presently have visiting nurse or other home services: No Alcohol intake: never Patient Tobacco Use Status: Never used Tobacco e-Cigarette/Vaping Use: Never Used Second Hand Smoke Exposure: No Substance Use Type: Marijuana service: No Current occupational status: employed and retired Cognitive needs: No Hearing needs: No Vision needs: No Review of Systems Const Denies chills, Reports fatigue, Reports fever(s) (subjective), Reports headache(s), Reports malaise and Denies night sweats Eyes Reports as per HPI ENT Reports no additional complaints, Reports headache(s) and Reports sore throat Card Reports as per HPI Resp Reports as per HPI Skin/Breast Reports system reviewed and no additional complaints, except as documented Neuro Reports headache(s) Psych Reports no additional complaints Endo Reports fatigue Aller/Immun Reports no additional complaints Physical Exam Vital Signs: Last Vital Signs Temp 98.4 F 08/25/23 08:57 Pulse 80 08/25/23 08:57 BP 110/70 08/25/23 08:57 Pulse Ox 97 08/25/23 08:57 BMI result Body Mass Index 29.3 Pt. is afebrile Const General: cooperative, healthy appearing, comfortable and no acute distress; No ill appearing Nutritional Appearance: average body habitus Orientation/consciousness: patient oriented x3 Limitations: no limitations HEENT Head: Yes normal to inspection Ears: hearing grossly normal bilaterally, TM's normal bilaterally and EAC's normal General nose exam: Normal external nose present Face and sinus: Yes normal facial exam Mouth: Normal oral and palatal mucosa present and moist mucous membranes Teeth and gingiva: dentition normal Throat: Yes posterior oropharynx normal ( There is no edema, erythema or exudates of the posterior oropharynx.) Eyes Conjunctivae: conjunctivae normal Pupils: Equal, round and reactive pupils present EOM: EOMs intact bilaterally Resp Effort & Inspection: normal respiratory effort, able to speak in complete sentences, no cough, respiratory effort not decreased and no respiratory distress Auscultation: clear to auscultation bilaterally Cardio Rate: regular rate Rhythm: regular rhythm Skin General skin exam: no rashes or lesions noted Neuro General: patient oriented x3 Cranial nerves: Yes Equal, round and reactive pupils present Psych Appearance: grossly normal Mental Status: mental status grossly normal Insight: Good insight present (Psych) Judgement: Good judgement present (Psych) Assessment & Plan Assessment & Plan (1) Viral respiratory illness: Code(s): J98.8 - Other specified respiratory disorders; B97.89 - Other viral agents as the cause of diseases classified elsewhere Plan: Testing for RSV, COVID-19 a and influenza is initiated and pending. Patient will be discharged home and instructed to use Tylenol or ibuprofen as needed for his sore throat and myalgias and increased clear fluids daily. Orders: Orders SARS-CoV2/FLU/RSV Today B97.89 - Other viral agents as the cause of diseases classified elsewhere, J98.8 - Other specified respiratory disorders Coding Level of Care Code Est Pt Level 3 (61332) Diagnoses Viral respiratory illness J98.8; B97.89 Time Spent (min) 20
== END 2023-08-25 10:11 | disposition home or self-care (01) ==
PROVIDERS: PCP Nurse Practitioner Family; Visit Provider Physician Assistant
DX: J98.8 Other specified respiratory disorders (principal); B97.89 Other viral agents as the cause of diseases classified elsewhere
CPT/HCPCS: 99213

== ENCOUNTER 2023-08-25 11:50 | Outpatient (REF) | payer OTHER, SELFPAY ==
[2023-08-26 12:59] LABS: Influenza A PCR NEGATIVE (Negative); Influenza B PCR NEGATIVE (Negative); Resp Syncy Virus RNA Qual PCR NEGATIVE (Negative); SARS COV2 PCR INHOUSE POSITIVE (Negative)
== END 2023-08-25 11:51 | disposition home or self-care (01) ==
LOC: HO.HMGCLNP 11:50
PROVIDERS: Visit Provider Physician Assistant
DX: Z11.52 Encounter for screening for COVID-19 (principal); Z20.822 Contact with and (suspected) exposure to COVID-19; J98.8 Other specified respiratory disorders; B97.89 Other viral agents as the cause of diseases classified elsewhere
CPT/HCPCS: 0241U

== ENCOUNTER 2023-08-31 10:15 | Outpatient (AMB) | payer OTHER, SELFPAY ==
--- NOTE | 2023-08-31 10:41 | A.OFFPC_ITS ---
Vital Signs 08/31/23 10:44 Weight 212 lb BP 114/78 Blood Pressure Location Rt brachial Position Sitting Pulse 88 Pulse Source Pulse Oximeter Pulse Oximetry (%) 97 Oxygen Delivery Method Room Air Intake Visit Reasons: PE Intake Note: Patient here for physical exam. he would like to talk about his walk in visit as he tested positive for covid on . last colonoscopy: February 2023 at [facility] [place] Allergies prednisone Allergy (Severe, Verified 08/31/23 10:45) severe headaches Tobacco use date assessed: 06/07/23 HPI PE HPI Details Pt is here for a PE. Will order labs. Colon screen is up to date. PSA is up to date. Pt reports intermittent weak stream and nocturia. Will refer to urology. Due for Prevnar 20, pt diagnosed with covid late last week, will hold off right now [facility] Medical History Ichthyosis Sinus headache Family history of colon cancer Insomnia Depression Excessive daytime sleepiness Seizures Surgical History Hx of colonoscopy History of hernia repair Hx of cholecystectomy Family History Father Colon cancer Mother Unknown family medical history Dementia associated with alcoholism Brother Cirrhosis Substance use disorder Son No problems noted. Son No problems noted. Social History Housing: House Are you a primary animal care service worker to a significant other at home: No Do you presently have visiting nurse or other home services: No Alcohol intake: never Patient Tobacco Use Status: Never used Tobacco e-Cigarette/Vaping Use: Never Used Second Hand Smoke Exposure: No Substance Use Type: Marijuana service: No Current occupational status: employed and retired Cognitive needs: No Hearing needs: No Vision needs: No Questionnaire PHQ-9 Over the last 2 weeks, how often have you been bothered by any of the following problems? 1. Little interest or pleasure in doing things: several days 2. Feeling down, depressed, or hopeless: not at all 3. Trouble falling or staying asleep, or sleeping too much: not at all 4. Feeling tired or having little energy: not at all 5. Poor appetite or overeating: not at all 6. Feeling bad about yourself - or that you are a failure or have let yourself or your family down: not at all 7. Trouble concentrating on things, such as reading the newspaper or watching television: not at all 8. Moving or speaking so slowly that other people could have noticed. Or the opposite - being so fidgety or restless that you have been moving around a lot more than usual: not at all 9. Thoughts that you would be better off or of hurting yourself in some way: not at all Total score: 1 Depression Screening Interpretation: Negative Depression Screening Done: Yes 76484 - PHQ-9 Billing: Yes Source: Developed by Drs. Victor Manuel Coon, Marilia Ramirez, Sebastian Lucio and colleagues, with an educational marjan from [employer]. Thrive Questionnaire Date Thrive assessed: 08/31/23 I am a: Patient What is your living situation today?: I have a steady place to live Within the past 12 months, did the food you bought not last and you didn't have the money to get more?: Never true Within the past 12 months, did you worry whether your food would run out before you got money to buy more?: Never true Do you have trouble paying for medicines?: No Do you have trouble getting transportation to medical appointments?: No Do you have trouble paying your heating and electricity bill?: No Do you have trouble taking care of your child, family member or friend?: No Do you have trouble with day-to-day activities such as bathing, preparing meals, shopping, managing finances, etc.?: No Are you currently unemployed and looking for a job?: No Are you interested in more education?: No TUYET-7 AMB Questionnaire TUYET-7 Date TUYET - 7 assessed: 08/31/23 Feeling nervous, anxious, or on edge: 1 = Several days Not being able to stop or control worryin = Several days Worrying too much about different things: 1 = Several days Trouble relaxin = Not at all Being so restless that it is hard to sit still: 0 = Not at all Becoming easily annoyed or irritable: 0 = Not at all Feeling afraid as if something awful might happen: 0 = Not at all Total TUYET-7 score (0-4 normal; 5-9 mild; 10-14 moderate; 15-21 severe): 3 Source: Developed by Drs. Victor Manuel Coon, Marilia Ramirez, Sebastian Lucio and colleagues, with an educational marjan from [employer]. TUYET-7 Assessment Billing TUYET-7 Assessment Tool: TUYET-7 Assessment 15925 Review of Systems Const Denies chills and Denies fever(s) Eyes Denies blurry vision ENT Denies vertigo, Denies dizziness and Denies sore throat Card Denies chest pain at rest, Denies chest pain with activity, Denies diaphoresis, Denies dyspnea and Denies dyspnea on exertion Resp Denies cough, Denies dyspnea, Denies dyspnea on exertion and Denies wheezing GI Denies abdominal pain, Denies melena, Denies hematochezia, Denies constipation, Denies diarrhea and Denies loose stools Denies hematuria Musc Denies numbness and Denies tingling Skin/Breast Denies lesions Neuro Denies vertigo, Denies dizziness, Denies numbness and Denies tingling Psych Denies anxiety, Denies depression, Denies homicidal ideation, Denies suicidal ideation and Denies other (substance abuse) Aller/Immun Denies wheezing Physical exam (Primary Care) Vital Signs: Last Vital Signs Pulse 88 08/31/23 10:44 BP 114/78 08/31/23 10:44 Pulse Ox 97 08/31/23 10:44 Oxygen Delivery Method Room Air 08/31/23 10:44 Tobacco/Smoking Status: Tobacco use Status Tobacco use date assessed 06/07/23 08/31/23 10:42 Patient Tobacco Use Status Never used Tobacco 08/31/23 10:42 e-Cigarette/Vaping Use Never Used 08/31/23 10:42 PHQ-9: PHQ-9 Score PHQ-9: Total score 1 08/31/23 11:28 Depression Screening Interpretation: Negative Thrive Assessment: Date of Thrive Assessment Date Thrive assessed 08/31/23 08/31/23 11:28 Const General: cooperative Nutritional Appearance: well nourished Orientation/consciousness: patient oriented x3 HENMT Head: Yes normal to inspection, Yes normocephalic and Yes atraumatic Ears: TM's normal bilaterally Eyes General: appearance normal, both eyes and all related structures Alignment and Position: alignment normal and position normal Neck Neck: Yes normal visual inspection and Yes no lymphadenopathy Thyroid: Thyroid normal Resp Effort & Inspection: normal respiratory effort Auscultation: clear to auscultation bilaterally Cardio Rate: regular rate Rhythm: regular rhythm Heart sounds: S1 normal heart sound present, S2 normal heart sound present and no murmurs GI Palpation (GI): Soft to palpation and nontender Auscultation: normal bowel sounds Other: JASWINDER: smooth groove, prostate felt indurated Male General Exam: Yes normal external exam Penis: normal penis Scrotum: scrotum normal, testes descended bilaterally and no inguinal hernias Testes: no testicular mass Skin Other: very dry skin (ichthyosis) Rashes: no rashes Neuro General: patient oriented x3, moves all extremities, no focal motor deficits and deep tendon reflexes 2+ bilaterally Romberg Test: Negative Psych Appearance: grossly normal Mental Status: mental status grossly normal Speech and movement: Normal speech and movement present Affect: normal affect Attitude: cooperative Thought process: Normal thought process present Thought content: Normal thought content present Insight: Good insight present (Psych) Judgement: Good judgement present (Psych) Assessment and Plan Assessment & Plan (1) Physical exam: Code(s): Z00.00 - Encounter for general adult medical examination without abnormal findings Plan: Labs ordered (2) Weak urinary stream: Code(s): R39.12 - Poor urinary stream Plan: Referred to urology Plan The patient agreed to the use of a medical billing coder for this encounter. Scribed for SELENE Stuart by Cassi Mullen medical billing coder, on 08/31/2023 at 10:55 EST. Orders: Orders Complete Blood Count Auto Diff Today Z00.00 - Encounter for general adult medical examination without abnormal findings TSH reflex Free T4 Today Z00.00 - Encounter for general adult medical examination without abnormal findings UA CC w/rflx Micro + Cult Today Z00.00 - Encounter for general adult medical examination without abnormal findings Comprehensive Tyler. Panel Fast Today Z00.00 - Encounter for general adult medical examination without abnormal findings Lipid Panel Today Z00.00 - Encounter for general adult medical examination without abnormal findings Referrals Urology Referral R39.12 - Poor urinary stream Coding Level of Care Code Est Pt Prev Care >65y(39135) Diagnoses Physical exam Z00.00 Weak urinary stream R39.12 Additional Codes TUYET-7 Assessment Billing - TUYET-7 Assessment Tool: TUYET-7 Assessment 77422 ([id number])
[2023-08-31 10:44] VITALS: BP 114/78; PULSE 88; O2SAT 97
== END 2023-08-31 11:14 | disposition home or self-care (01) ==
PROVIDERS: PCP Nurse Practitioner Family; Visit Provider Nurse Practitioner Family
DX: Z00.00 Encounter for general adult medical examination without abnormal findings (principal); R39.12 Poor urinary stream
CPT/HCPCS: 99397

== ENCOUNTER 2023-10-24 10:43 | Outpatient (AMB) | payer OTHER, SELFPAY ==
--- NOTE | 2023-10-24 10:50 | A.OFFVIS_ITS ---
Intake Intake Visit Reasons: weak urinary stream Intake Note: NEW Patient presents today to established treatment for Weak Urinary Stream: Meds- None Allergies to Antibiotic- No Known Allergies Blood Thinner- None Post Void Residual: 43 mL Parts Counter Associate Required: No Accompanied by: Self / Same As Patient Allergies prednisone Allergy (Severe, Verified 12/12/23 11:46) severe headaches Medication List - Last Reconciled 10/24/23 by Shea Jarvis MD atorvastatin 80 mg PO DAILY citalopram 10 mg (5 mL) PO DAILY dextroamphetamine-amphetamine 10 mg ER 1 cap PO DAILY famotidine 40 mg PO DAILY 90 days levetiracetam 750 mg PO BID lisinopril 10 mg PO DAILY lorazepam 1 mg PO BID tamsulosin (Flomax) 0.4 mg PO DAILY HPI HPI Comments History of Present Illness Details Mj is a 68 year old male who is here for evaluation for weak urinary stream. Past Medical history - Ichthyosis Family history of colon cancer Insomnia Depression Seizures The patient complains of daytime urinary frequency every hours, nocturia, feeling of incomplete bladder emptying, denies prior nicotine use coffee --2-3, in AM, less water history of kidney stones, family history of coolon cancer, at age 68 I have discussed avoiding dietary bladder irritants, including to cut back on caffeine usage. I have discussed workup to include evaluation of the upper tracts and consideration for cystoscopy evaluation. UA Bladder scan Post Void Residual: 43 mL Prostate exam- smooth, firm left apex 06/2023 PSA 2.68 Plan: US Retroperitoneum, tamsulosin, fu in 6 weeks, cont PSA screening, [facility] Medical History Nocturia Viral respiratory illness Dehydration Fatigue Cyst of skin Acute neck sprain Screening PSA (prostate specific antigen) Constipation Vasovagal syncope Sinus headache Physical exam Stress Screening for colon cancer Insomnia Excessive daytime sleepiness Pain of hand and fingers Swelling of right hand Fatigue after vaccination Acute sinusitis Screening PSA (prostate specific antigen) Physical exam Medication refill Cellulitis Splinter Ichthyosis Family history of colon cancer Depression Seizures Surgical History Hx of colonoscopy History of hernia repair Hx of cholecystectomy Family History Father Colon cancer Mother Unknown family medical history Dementia associated with alcoholism Brother Cirrhosis Substance use disorder Son No problems noted. Son No problems noted. Social History Housing: House Are you a primary rn managed care to a significant other at home: No Do you presently have visiting nurse or other home services: No Alcohol intake: never Patient Tobacco Use Status: Never used Tobacco e-Cigarette/Vaping Use: Never Used Second Hand Smoke Exposure: No Substance Use Type: Marijuana service: No Current occupational status: employed and retired Cognitive needs: No Hearing needs: No Vision needs: No Review of Systems Const All systems reviewed & are unremarkable except as noted in HPI and below Reports no additional complaints Eyes Reports no additional complaints ENT Reports no additional complaints Card Denies dyspnea Resp Denies cough and Denies dyspnea GI Reports no additional complaints Musc Reports no additional complaints Skin/Breast Denies rash and Denies unusual bruising Neuro Reports no additional complaints Psych Reports no additional complaints Endo Reports no additional complaints Ricky/Lymph Reports no additional complaints Aller/Immun Reports no additional complaints Physical Exam Const General: healthy appearing, no acute distress and well developed Orientation/consciousness: patient oriented x3 HEENT Head: Yes normocephalic and Yes atraumatic Eyes Conjunctivae: conjunctivae normal Neck Neck: Yes normal visual inspection Chest Chest palpation & inspection: normal inspection of the chest Resp Effort & Inspection: normal respiratory effort Cardio Rate: regular rate GI Inspection: Yes normal to inspection Palpation (GI): Soft to palpation Other: Prostate Exam: Skin General skin exam: no rashes or lesions noted Neuro General: patient oriented x3 Extrem General: No pedal edema Psych Appearance: grossly normal Affect: normal affect Office Procedures Post Void Residual Post Residual Void Post Void Residual (PVR): 43 [id number] Void Residual by ultrasound Results AMB Urinalysis, Automated UA Leukoctes 0 Abeba/uL Last Edit by SHAHLA Nogueira on 10/24/23 11:16 UA Nitrite Negative Last Edit by Rayo Duncan Zahra on 10/24/23 11:16 UA Urobilinogen 0.2 mg/dL Last Edit by Rayo Duncan A on 10/24/23 11:1 6 UA Protein 15 mg/dL Last Edit by Rayo Duncan Zahra on 10/24/23 11:16 UA pH 6.0 Last Edit by Rayo Duncan [facility] on 10/24/23 11:16 UA Blood 0 Vic/uL Last Edit by Rayo Duncan [facility] on 10/24/23 11:16 UA Specific [place] 1.030 Last Edit by Rayo Duncan Zahra on 10/24/23 11: 16 UA Ketone Negative Last Edit by Rayo uDncan [facility] on 10/24/23 11:16 UA Bilirubin 0 mg/dL Last Edit by Rayo Duncan Zahra on 10/24/23 11:16 UA Glucose 0 mg/dL Last Edit by Rayo Duncan [facility] on 10/24/23 11:16 Results Reviewed Results Reviewed: Laboratory Last Values Urine pH (Auto) 6.0 10/24/23 10:52 Specific [place] (Auto) 1.030 10/24/23 10:52 Urine Protein (Auto) 15 mg/dL 10/24/23 10:52 Glucose (UA)(Auto) 0 mg/dL 10/24/23 10:52 Urine Ketones (Auto) Negative 10/24/23 10:52 Urine Blood (Auto) 0 Vic/uL 10/24/23 10:52 Urine Nitrite (Auto) Negative 10/24/23 10:52 Urine Bilirubin (Auto) 0 mg/dL 10/24/23 10:52 Urine Urobilinogen (Auto) 0.2 mg/dL 10/24/23 10:52 Leukocyte Esterase (Auto) 0 Abeba/uL 10/24/23 10:52 Assessment & Plan Assessment & Plan (1) BPH loc w urin obs/LUTS: Code(s): N40.1 - Benign prostatic hyperplasia with lower urinary tract symptoms (2) Weak urinary stream: Code(s): R39.12 - Poor urinary stream (3) Nocturia: Code(s): R35.1 - Nocturia Plan US Retroperitoneum, tamsulosin, fu in 6 weeks, cont PSA screening Orders: Orders AMB Post Void Residual by ultrasound 10/24/23 N39.8 - Other specified disorders of urinary system AMB Urinalysis Automated 10/24/23 Z13.9 - Encounter for screening, unspecified US retroperitoneal comp 10/24/23 N40.1 - Benign prostatic hyperplasia with lower urinary tract symptoms, R39.12 - Poor urinary stream Medications: New tamsulosin (Flomax) 0.4 mg PO DAILY 90 caps 1RF Coding Level of Care Code New Pt Level 4 (47442) Diagnoses BPH loc w urin obs/LUTS N40.1 Weak urinary stream R39.12 Nocturia R35.1 CPT Codes Post Residual Void - PVR CPT Code: 11140-Jyym Void Residual by ultrasound ([id number])
== END 2023-10-24 11:54 | disposition home or self-care (01) ==
PROVIDERS: PCP Nurse Practitioner Family; Visit Provider Urology
DX: N40.1 Benign prostatic hyperplasia with lower urinary tract symptoms (principal); R39.12 Poor urinary stream; R35.1 Nocturia
CPT/HCPCS: 99204

== ENCOUNTER → 2023-10-24 10:43 | Outpatient (BNVA) | payer OTHER, SELFPAY | PROVIDERS: PCP Nurse Practitioner Family; Visit Provider Urology | DX: N40.1 Benign prostatic hyperplasia with lower urinary tract symptoms (principal); N13.8 Other obstructive and reflux uropathy; R39.12 Poor urinary stream; R35.1 Nocturia | CPT/HCPCS: 51798; 81003 ==

== ENCOUNTER 2023-11-06 09:11 | Emergency (ER) | payer OTHER, SELFPAY ==
--- NOTE | ~2023-11-06 | XR_ITS ---
EXAMINATION: XR ABDOMEN KUB CLINICAL INDICATION: Constipation evaluation. COMPARISON: Abdominal x-ray January 2022 TECHNIQUE: AP view of the abdomen. FINDINGS: Surgical clips in the upper and lower abdomen and pelvis. Nonobstructive gas pattern. Moderate amount of stool present throughout the colon increased compared to prior. There is mild osteoarthritis about both hips. Bony protuberance at the femoral head neck junction bilaterally. This can be associated with femoral acetabular impingement. Chondrocalcinosis of the symphysis pubis. Spondylosis of the visualized spine. XR/XR KUB IMPRESSION: 1. Moderate amount of stool present throughout the colon increased compared to prior. 2. Nonobstructive gas pattern. 3. Bony protuberance of the femoral head neck junction bilaterally. This can be associated with femoral acetabular impingement in some patients.
[2023-11-06 09:25] VITALS: BP 100/80; PULSE 100; RESP 19; TEMP 36.6; O2SAT 98; BMI 30.5
--- NOTE | 2023-11-06 09:35 | ED.GENADULT ---
HPI - General Adult General Chief complaint: General Medical Stated complaint: Constipated-medication may cause syncope Time Seen by Provider: 11/06/23 09:34 Source: patient Mode of arrival: ambulatory Limitations: no limitations History of Present Illness HPI narrative: 68 yo male with pmhx of BPH, constipation, vasovagal syncope, and seizures presents to the ED c/o constipation. Pt states his last bowel movement was Tuesday am (11/02). He states he has recently cut back his water intake due to BPH and not wanting to get up during the night to urinate so frequently and believes this may be exacerbating constipation. He has been taking oral stool softeners daily to help move his bowels but they have not been working, but he has been passing flatus. he called the weekend product responsibility liaison doctor and Dr. Powers recommended he come to the ED for a laxative since he has a past history of having vasovagal syncope at home while straining to have a bowel movement. He denies nausea, vomiting, diarrhea. Onset (ago): day(s) Location: abdomen Radiation: non-radiation Severity: moderate Severity scale (1-10): 3 Relieving factors: none Exacerbating factors: none Associated symptoms: denies other symptoms Treatments prior to arrival: none Related Data Home Medications Medication Instructions Recorded Confirmed dextroamphetamine-amphetamine ER 1 cap PO DAILY 07/07/20 10/24/23 10 mg 24hr capsule,extend release lorazepam 0.5 mg tablet 1 mg PO BID 07/07/20 10/24/23 levetiracetam 750 mg tablet 750 mg PO BID 07/08/22 10/24/23 Previous Rx's Medication Instructions Recorded atorvastatin 80 mg tablet 80 mg PO DAILY #90 tabs 06/07/23 citalopram 10 mg/5 mL oral solution 10 mg (5 mL) PO DAILY #150 mL 07/04/23 famotidine 40 mg tablet 40 mg PO DAILY 90 days #90 tabs 07/14/23 lisinopril 10 mg tablet 10 mg PO DAILY #90 tabs 09/06/23 tamsulosin 0.4 mg capsule (Flomax) 0.4 mg PO DAILY #90 caps 10/24/23 Allergies Allergy/AdvReac Type Severity Reaction Status Date / Time prednisone Allergy Severe severe Verified 11/06/23 09:25 headaches Review of Systems Constitutional: Constitutional: Reports no additional constitutional complaints, Denies chills, Denies fever(s) and Denies night sweats Eyes: Eyes: Reports no additional eye complaints, Denies blurry vision, Denies change in vision, Denies diplopia, Denies eye discharge, Denies loss of vision and Denies eye pain ENT: Denies dizziness Cardiovascular: Cardiovascular: Reports no additional cardiovascular complaints, Denies chest pain, Denies lightheadedness, Denies Loss of Consciousness and Denies dyspnea Respiratory: Respiratory: Reports no additional respiratory complaints and Denies dyspnea Gastrointestinal: Gastrointestinal: Reports no additional gastrointestinal complaints, Denies abdominal pain, Denies melena, Denies hematochezia, Reports change in bowel habits, Denies change in stool character and Reports constipation Genitourinary: Genitourinary: Reports no additional male genitourinary complaints, Denies hematuria, Denies oliguria, Denies difficulty urinating, Denies dysuria, Denies urinary frequency, Denies urinary hesitancy, Denies urinary incontinence and Denies urinary urgency Musculoskeletal: Musculoskeletal: Reports no additional musculoskeletal complaints, Denies numbness and Denies tingling Neurologic: Denies dizziness, Denies loss of vision, Denies numbness and Denies tingling Psychiatric: Psychiatric: Reports no additional psychiatric complaints Endocrine: Endocrine: Reports no additional endocrine complaints Hematologic/Lymphatic: Hematologic/Lymphatic: Reports no additional hematologic/lymphatic complaints Allergic/Immunologic: Allergic/Immunologic: Reports no additional allergic/immunologic complaints [facility] Past Medical History Attestation statement: The following information was validated with the patient. Source: old records reviewed and nursing notes reviewed Medical History Nocturia Viral respiratory illness Dehydration Fatigue Cyst of skin Acute neck sprain Screening PSA (prostate specific antigen) Constipation Vasovagal syncope Sinus headache Physical exam Stress Screening for colon cancer Insomnia Excessive daytime sleepiness Pain of hand and fingers Swelling of right hand Fatigue after vaccination Acute sinusitis Screening PSA (prostate specific antigen) Physical exam Medication refill Cellulitis Splinter Ichthyosis Family history of colon cancer Depression Seizures Surgical History Hx of colonoscopy History of hernia repair Hx of cholecystectomy Family History Family History Father Colon cancer Mother Unknown family medical history Dementia associated with alcoholism Brother Cirrhosis Substance use disorder Son No problems noted. Son No problems noted. Social History Social History Housing: House Are you a primary livestock caretaker to a significant other at home: No Do you presently have visiting nurse or other home services: No Alcohol intake: never Patient Tobacco Use Status: Never used Tobacco e-Cigarette/Vaping Use: Never Used Second Hand Smoke Exposure: No Substance Use Type: Marijuana Advance Directives: No Advance Directives Information Provided: Yes service: No Current occupational status: employed and retired Cognitive needs: No Hearing needs: No Vision needs: No Physical Exam ED Vital Signs: Vital Signs - 24 hr 11/06/23 09:25 Temperature 98 F Pulse Rate 100 Respiratory Rate 19 Blood Pressure 100/80 Pulse Oximetry 98 Oxygen Delivery Method Room Air BMI result Body Mass Index 30.5 Const General: cooperative, no acute distress, alert and awake Nutritional Appearance: well nourished Orientation/consciousness: patient oriented x3 Limitations: no limitations HENMT Head: Yes normal to inspection and Yes atraumatic Ears: hearing grossly normal bilaterally and external ears normal General nose exam: Normal external nose present, no nasal discharge noted and no epistaxis Face and sinus: Yes normal facial exam, No abrasion and No laceration Mouth: Normal oral and palatal mucosa present, no drooling and no muffled voice Eyes General: appearance normal, both eyes and all related structures Periorbital: periorbital findings normal Eyelids: Yes eyelids normal Conjunctivae: conjunctivae normal Pupils: Equal, round and reactive pupils present EOM: EOMs intact bilaterally Neck Neck: Yes normal visual inspection, Yes full ROM and Yes no lymphadenopathy Chest Chest palpation & inspection: normal inspection of the chest Resp Effort & Inspection: normal respiratory effort and able to speak in complete sentences GI Inspection: Yes normal to inspection Palpation (GI): Soft to palpation, not firm, nontender and no guarding Neuro General: patient oriented x3 and moves all extremities Cranial nerves: Yes Equal, round and reactive pupils present Cognition (Neuro): normal cognition Motor exam (neuro): 5/5 motor strength present throughout Sensory Exam: Normal double simultaneous stimulation for sensation Coordination: [id number] test normal Extrem General: Yes normal to inspection, Yes full ROM and Yes capillary refill normal Psych Appearance: grossly normal Mental Status: mental status grossly normal Affect: normal affect Attitude: cooperative Thought process: Normal thought process present Thought content: Normal thought content present Insight: Good insight present (Psych) Medical Decision Making Medical Decision Making MDM Narrative: Patient is a 68 year old assigned male at with a history of BPH and constipation presenting to the emergency department today with constipation. Patient's physical exam was unremarkable. Patient's KUB x-ray showed constipation. I explained my physical exam findings as well as all test results to the patient. I answered all questions asked by the patient. Patient received a bed side enema which he stated helped his symptoms significantly. I stressed the importance of the patient taking his medication as prescribed. I stressed the importance of the patient following up with his primary care provider. I stressed the importance of the patient returning to the emergency department immediately if his symptoms were to worsen or if he were to develop any dizziness, shortness of breath, difficulty breathing, chest pain, blurry vision, loss of vision, nausea, vomiting, abdominal pain, fever, chills, back pain, or any other complaints. Patient verbalized agreement and understanding with this treatment plan and discharge. Differential Diagnosis Differential Diagnoses: The differential diagnosis associated with the presentation includes constipation fecal impaction dehydration change in bowel habits Admission/Observation Consideration of admission/observation: Escalation of care including admission/observation considered Patient would have been admitted to the hospital had his work up had any findings where hospital admission was appropriate and his clinical presentation warranted hospital admission. Independent Interpretation I performed an independent interpretation of an: Plain X-Ray Interpretation: My interpretation is in agreement with the radiologist's impression of this imaging study. EXAMINATION: XR ABDOMEN KUB CLINICAL INDICATION: Constipation evaluation. COMPARISON: Abdominal x-ray January 2022 TECHNIQUE: AP view of the abdomen. FINDINGS: Surgical clips in the upper and lower abdomen and pelvis. Nonobstructive gas pattern. Moderate amount of stool present throughout the colon increased compared to prior. There is mild osteoarthritis about both hips. Bony protuberance at the femoral head neck junction bilaterally. This can be associated with femoral acetabular impingement. Chondrocalcinosis of the symphysis pubis. Spondylosis of the visualized spine. XR/XR KUB IMPRESSION: 1. Moderate amount of stool present throughout the colon increased compared to prior. 2. Nonobstructive gas pattern. 3. Bony protuberance of the femoral head neck junction bilaterally. This can be associated with femoral acetabular impingement in some patients. Dictated By: Eugenio Schulz MD Signed By: Electronically signed by Eugenio Schulz MD 11/06/23 7927 Radiology Impression Discussion of test interpretation with radiology: I have reviewed the radiologist's reading. Discharge Plan Discharge Clinical Impression: Constipation Patient Disposition: Home, Self-Care Instructions: Constipation (DC) Additional Instructions: DRINK PLENTY OF WATER. If you would like to continue a bowel clean out, you can do so by using Magnesium Citrate which you can find over the counter at any pharmacy. Follow up with your primary care provider. Return to the emergency department immediately if your symptoms worsen or if you develop any dizziness, shortness of breath, difficulty breathing, chest pain, blurry vision, loss of vision, nausea, vomiting, abdominal pain, fever, chills, back pain, or any other complaints. Prescriptions: No Action citalopram 10 mg/5 mL solution 10 mg PO DAILY Qty: 150 0RF famotidine 40 mg tablet 40 mg PO DAILY 90 Days Qty: 90 1RF lisinopril 10 mg tablet 10 mg PO DAILY Qty: 90 0RF dextroamphetamine-amphetamine 10 mg capsule,extended release 24hr 1 cap PO DAILY lorazepam 0.5 mg tablet 1 mg PO BID atorvastatin 80 mg tablet 80 mg PO DAILY Qty: 90 2RF levetiracetam 750 mg tablet 750 mg PO BID tamsulosin [Flomax] 0.4 mg capsule 0.4 mg PO DAILY Qty: 90 1RF Referrals: Michael Rich, [facility] [Primary Care Provider] - Interventions: ED Discharge Assessment Last Done: 11/06/23 12:50 Discharge Date/Time: 11/06/23 12:51 Print Language: Romanian
--- NOTE | 2023-11-06 09:42 | PC.NURSE ---
Pt reporting last BM was . he is currently passing gas, and having air bubbles, reports history of constipation
== END 2023-11-06 12:51 | disposition home or self-care (01) ==
PROVIDERS: Emergency Provider Emergency Medicine Emergency Medical Services; PCP Nurse Practitioner Family
DX: K59.00 Constipation, unspecified (principal)
CPT/HCPCS: 74018; 99283; 99284

== ENCOUNTER 2023-11-09 08:49 | Outpatient (REF) | payer OTHER, SELFPAY ==
[2023-11-09 11:31] LABS: Appearance Urine Cloudy; Color Urine Yellow; Glucose Urine UA Negative (Negative); Leukocyte Esterase Urine Negative (Negative); Nitrite Urine Negative (Negative); PH 5.5 (5.0-9.0); Urine Blood Negative (Negative); Urine Ketones Negative (Negative); Urine Protein Negative (Neg-Trace)
[2023-11-09 11:38] LABS: MANUAL DIFF FLAG NO
[2023-11-09 11:55] LABS: Basophils Percent Auto 0.6 % (0-2); Eosinophils Absolute Auto 0.1 X10*3/uL (0.0-0.4); Eosinophils Percent Auto 1.6 % (0-4); Hematocrit 43.3 % (42.0-52.0); Hemoglobin 14.4 g/dl (14.0-18.0); Imm Gran Abs Auto 0.01 X10*3/uL (0.00-0.03); Imm Gran Pct Auto 0.2 % (0.0-0.4); Lymphocytes Absolute Auto 1.6 X10*3/uL (1.2-4.9); Lymphocytes Percent Auto 31.2 % (20-40); Mean Corpuscular HGB Conc 33.3 g/dl (31.0-36.0); Mean Corpuscular Hemoglobin 30.4 pg (27.0-33.0); Mean Corpuscular Volume 91.5 fL (80.0-98.0); Mean Platelet Volume 11.3 fL (9.4-12.4); Monocytes Absolute Auto 0.4 X10*3/uL (0.1-1.2); Monocytes Percent Auto 8.2 % (2-11); Neutrophils Absolute Auto 2.9 x10*3/uL (2.0-8.3); Neutrophils Percent Auto 58.2 % (45-73); Platelet Count 164 X10*3/uL (160-400); Red Blood Count 4.73 X10*6/uL (4.60-5.80); Red Cell Distribution Width 12.5 % (11.0-16.0)
[2023-11-09 12:14] LABS: Alanine Aminotransferase 28 U/L (0-40); Albumin Level 4.3 g/dL (3.5-5.0); Alkaline Phosphatase 86 U/L (39-117); Anion Gap 11 (12-20); Aspartate Amino Transferase 30 U/L (5-37); Bilirubin Total 0.6 mg/dL (0.0-1.0); Blood Urea Nitrogen 12 mg/dL (9-16); Carbon Dioxide 26 mmol/L (22-29); Chloride 106 mmol/L (96-108); Cholesterol 118 mg/dL (<200); Estimated Glomerular Filt Rate > 60; Glucose Fasting 109 mg/dL (60-99); HDL Cholesterol 50 mg/dL (>40); LDL Cholesterol Calculated 56 mg/dL (<100); Potassium 4.3 mmol/L (3.3-5.1); Sodium 139 mmol/L (135-145); Total Protein 7.3 g/dL (6.5-8.0); Triglycerides 63 mg/dL (<150)
[2023-11-09 12:31] LABS: TSH reflex Free T4 1.46 uIU/mL (0.32-4.0)
== END 2023-11-09 08:50 | disposition home or self-care (01) ==
LOC: HO.HMGCLDS 08:49
PROVIDERS: PCP Nurse Practitioner Family; Visit Provider Nurse Practitioner Family
DX: Z00.00 Encounter for general adult medical examination without abnormal findings (principal)
CPT/HCPCS: 36415; 80053; 80061; 81003; 84443; 85025

== ENCOUNTER 2023-11-25 10:12 | Outpatient (REF) | payer OTHER, SELFPAY ==
--- NOTE | ~2023-11-25 | US_ITS ---
EXAMINATION: US RETROPERITONEAL COMPLETE (RENAL) CLINICAL INFORMATION: Benign prostatic hyperplasia with lower urinary tract symptoms. Please measure prostate. COMPARISON: X-ray KUB 11/06/2023 and 02/08/2022. CT abdomen and pelvis 02/08/2022. Ultrasound abdomen complete 08/24/2017. TECHNIQUE: Real-time imaging of the kidneys and bladder. FINDINGS: RIGHT KIDNEY: 12.2 x 5.4 x 5.7 cm (SAG x AP x TRV). The kidney is normal in size, contour, and echogenicity. Renal cortical thickness is normal. No calculi or focal parenchymal lesions. No hydronephrosis. LEFT KIDNEY: 12.1 x 6.2 x 6.1 cm (SAG x AP x TRV). The kidney is normal in size, contour, and echogenicity. Renal cortical thickness is normal. No calculi or focal parenchymal lesions. No hydronephrosis. BLADDER: Well distended and normal. Bilateral ureteral jets are demonstrated. Prevoid bladder volume is 181 mL. Postvoid bladder volume is 15 mL. ADDITIONAL FINDINGS: Prostate volume measured 42 mL US/US retroperitoneal comp IMPRESSION: Normal study.
== END 2023-11-25 10:13 | disposition home or self-care (01) ==
LOC: HO.HMGCX 10:12
PROVIDERS: PCP Nurse Practitioner Family; Visit Provider Urology
DX: N40.1 Benign prostatic hyperplasia with lower urinary tract symptoms (principal); R31.29 Other microscopic hematuria
CPT/HCPCS: 76770

== ENCOUNTER 2023-12-08 12:56 | Outpatient (AMB) | payer OTHER, SELFPAY ==
--- NOTE | 2023-12-08 12:58 | AM.OFFWIN_ITS ---
Intake Vital Signs 12/08/23 12:59 Weight 211 lb BP 120/80 Blood Pressure Location Rt brachial Position Sitting Pulse 97 Pulse Source Pulse Oximeter Pulse Oximetry (%) 99 Oxygen Delivery Method Room Air Intake Visit Reasons: EP Lft Shoulder muscle pull (lobby) Intake Note: Patient here for left should pain, he believes to have pulled a muscle and while helping son clean up yard, pt was lifting and dumping when it happened.has hx of shoulder issues Patient Tobacco Use Status: Never used Tobacco Allergies prednisone Allergy (Severe, Verified 12/08/23 13:01) severe headaches Do you need a note to return to daycare/school/sports/work: No HPI HPI Comments History of Present Illness Details 68 y/o male patient who presents to walk in clinic with c/o Left shoulder pain. He was helping his son to clean Yard the past week and he thinks he might have pulled a muscle. ROM limited due to pain. He has been taking Ibuprofen 400 mg, applying heat-ice with minimal relief. [facility] Medical History Nocturia Viral respiratory illness Dehydration Fatigue Cyst of skin Acute neck sprain Screening PSA (prostate specific antigen) Constipation Vasovagal syncope Sinus headache Physical exam Stress Screening for colon cancer Insomnia Excessive daytime sleepiness Pain of hand and fingers Swelling of right hand Fatigue after vaccination Acute sinusitis Screening PSA (prostate specific antigen) Physical exam Medication refill Cellulitis Splinter Ichthyosis Family history of colon cancer Depression Seizures Surgical History Hx of colonoscopy History of hernia repair Hx of cholecystectomy Family History Father Colon cancer Mother Unknown family medical history Dementia associated with alcoholism Brother Cirrhosis Substance use disorder Son No problems noted. Son No problems noted. Social History Housing: House Are you a primary urgent care physician assistant to a significant other at home: No Do you presently have visiting nurse or other home services: No Alcohol intake: never Patient Tobacco Use Status: Never used Tobacco e-Cigarette/Vaping Use: Never Used Second Hand Smoke Exposure: No Substance Use Type: Marijuana service: No Current occupational status: employed and retired Cognitive needs: No Hearing needs: No Vision needs: No Review of Systems Const All systems reviewed & are unremarkable except as noted in HPI and below Physical Exam Vital Signs: Last Vital Signs Pulse 97 12/08/23 12:59 BP 120/80 12/08/23 12:59 Pulse Ox 99 12/08/23 12:59 Oxygen Delivery Method Room Air 12/08/23 12:59 Const General: comfortable and no acute distress Orientation/consciousness: patient oriented x3 Neuro General: patient oriented x3, gait normal and moves all extremities Extrem General: No edema Right upper extremity: shoulder/upper arm Details: normal to inspection, tenderness Location: of the scapula and abnormal ROM Details: pain with active ROM Details: in ADduction, in ABduction and in extension Psych Speech and movement: Clear speech present Affect: normal affect Attitude: cooperative Assessment & Plan Assessment & Plan (1) Left shoulder pain: Code(s): M25.512 - Pain in left shoulder Qualifiers: Chronicity: unspecified Qualified Code(s): M25.512 - Pain in left shoulder Plan: - Ice Hot - Rest the joint - NSAIDs for pain relief - F/U with PCP Medications: New ibuprofen 800 mg PO Q8H 20 tabs 0RF M25.512 - Pain in left shoulder cyclobenzaprine 10 mg PO BEDTIME 14 tabs 0RF M25.512 - Pain in left shoulder Coding Level of Care Code Est Pt Level 3 (51674) Diagnoses Left shoulder pain, unspecified chronicity M25.512 Chronicity: unspecified Time Spent (min) 15
[2023-12-08 12:59] VITALS: BP 120/80; PULSE 97; O2SAT 99
== END 2023-12-08 14:57 | disposition home or self-care (01) ==
PROVIDERS: PCP Nurse Practitioner Family; Visit Provider Nurse Practitioner Family
DX: M25.512 Pain in left shoulder (principal)
CPT/HCPCS: 99213

== ENCOUNTER 2023-12-12 11:21 | Outpatient (AMB) | payer OTHER, SELFPAY ==
--- NOTE | 2023-12-12 11:28 | A.OFFVIS_ITS ---
Intake Intake Visit Reasons: 6w/US Intake Note: Patient presents today for a follow-up on US Meds- Tamsulosin Allergies to Antibiotic- No Known Allergies Blood Thinner- None Post Void Residual: 42ml Precision Lens Grinder Apprentice Required: No Accompanied by: Self / Same As Patient Allergies prednisone Allergy (Severe, Verified 12/12/23 11:46) severe headaches HPI HPI Comments History of Present Illness Details 12/12/2023--Mj is here for follow-up fo r BPH and lower urinary tract symptoms of urgency frequency and nocturia. He was initially evaluated in September 2023 in started on tamsulosin. He was sent for renal ultrasound. He had a renal ultrasound done I have reviewed the results with him. Kidneys are within normal limits estimated prostate volume, 42 mL. Mj states that he has noticed improvement after a couple of weeks of the tamsulosin he is only getting up 1 time at night instead of 3-4 times. He has also noticed that he gets some blurred vision, he has also been on medication due to a sprain shoulder and plans to see his eye doctor for evaluation. Evaluation: Urinalysis- no signs of infection, bladder scan PVR 42 mL 11/25/2023 Renal ultrasound--kidneys withi n normal limits negative for parenchymal lesions or cysts. BLADDER: Well distended and normal. Bilateral ureteral jets are demonstrated. Prevoid bladder volume is 181 mL. Postvoid bladder volume is 15 mL. Prostate volume measured 42 mL Review of chart: 10/24/2023--Mj is a 68 year old male w ho is here for evaluation for weak urinary stream. Past Medical history - Ichthyosis, Family history of colon cancer, Insomnia, Depression, Seizures The patient complains of daytime urinary frequency every hours, nocturia hematuria, dysuria, feeling of incomplete bladder emptying, coffee --2-3, in AM, less water, history of kidney stones, family history of coolon cancer, at age 68, denies prior nicotine use I have discussed avoiding dietary bladder irritants, including to cut back on caffeine usage. I have discussed workup to include evaluation of the upper tracts and consideration for cystoscopy evaluation. UA Bladder scan Post Void Residual: 43 mL, Prostate exam- smooth, firm left apex 06/2023 PSA 2.68; Plan: US Retroperiton eum, tamsulosin, fu in 6 weeks, cont PSA screening, 12/12/23:PLAN--continue tamsulosin for no w. Patient is following up with his eye doctor has noticed some blurred vision also states when he changes the angle of his glasses the blurred vision goes away. He will call regarding any other concerns regarding the tamsulosin and otherwise follow-up in 6 months [facility] Medical History Nocturia Viral respiratory illness Dehydration Fatigue Cyst of skin Acute neck sprain Screening PSA (prostate specific antigen) Constipation Vasovagal syncope Sinus headache Physical exam Stress Screening for colon cancer Insomnia Excessive daytime sleepiness Pain of hand and fingers Swelling of right hand Fatigue after vaccination Acute sinusitis Screening PSA (prostate specific antigen) Physical exam Medication refill Cellulitis Splinter Ichthyosis Family history of colon cancer Depression Seizures Surgical History Hx of colonoscopy History of hernia repair Hx of cholecystectomy Family History Father Colon cancer Mother Unknown family medical history Dementia associated with alcoholism Brother Cirrhosis Substance use disorder Son No problems noted. Son No problems noted. Social History Housing: House Are you a primary vocational childcare teacher to a significant other at home: No Do you presently have visiting nurse or other home services: No Alcohol intake: never Patient Tobacco Use Status: Never used Tobacco e-Cigarette/Vaping Use: Never Used Second Hand Smoke Exposure: No Substance Use Type: Marijuana service: No Current occupational status: employed and retired Cognitive needs: No Hearing needs: No Vision needs: No Review of Systems Const All systems reviewed & are unremarkable except as noted in HPI and below Reports no additional complaints Eyes Reports no additional complaints ENT Reports no additional complaints Card Denies dyspnea Resp Denies cough and Denies dyspnea GI Reports no additional complaints Musc Reports no additional complaints Skin/Breast Denies rash and Denies unusual bruising Neuro Reports no additional complaints Psych Reports no additional complaints Endo Reports no additional complaints Ricky/Lymph Reports no additional complaints Aller/Immun Reports no additional complaints Office Procedures Post Void Residual Post Residual Void Post Void Residual (PVR): 42 [id number] Void Residual by ultrasound Results AMB Urinalysis, Automated UA Leukoctes 0 Abeba/uL Last Edit by Mariela Trejoaditya Trejo [facility] on 12/12/23 11 :45 UA Nitrite Negative Last Edit by Mariela Trejoaditya Trejo, [facility] on 12/12/23 11: 45 UA Urobilinogen 0.2 mg/dL [facility], [facility] on 4 11:45 UA Protein 15 mg/dL Last Edit by Mariela Trejo Trejo, [facility] on 12/12/23 11:4 5 UA pH 5.5 Last Edit by Mariela Trejo Trejo, [facility] on 12/12/23 11:45 UA Blood 0 Vic/uL Last Edit by Mariela Trejoaditya Trejo [facility] on 12/12/23 11:45 UA Specific [place] 1.030 Last Edit by [facility], [facility] on 11:45 UA Ketone Positive Last Edit by Mariela Trejoaidtya Trejo [facility] on 12/12/23 11:4 5 5mg/dl Mariela Trejo Trejo 12/12/23 11:45 UA Bilirubin 2 mg/dL Last Edit by [facility], [facility] on 12/12/23 11: 45 UA Glucose 0 mg/dL Last Edit [facility], [facility] on 12/12/23 11:45 Results Reviewed Results Reviewed: Laboratory Last Values Urine pH (Auto) 5.5 12/12/23 11:41 Specific [place] (Auto) 1.030 12/12/23 11:41 Urine Protein (Auto) 15 mg/dL 12/12/23 11:41 Glucose (UA)(Auto) 0 mg/dL 12/12/23 11:41 Urine Ketones (Auto) Positive 12/12/23 11:41 Urine Blood (Auto) 0 Vic/uL 12/12/23 11:41 Urine Nitrite (Auto) Negative 12/12/23 11:41 Urine Bilirubin (Auto) 2 mg/dL 12/12/23 11:41 Urine Urobilinogen (Auto) 0.2 mg/dL 12/12/23 11:41 Leukocyte Esterase (Auto) 0 Abeba/uL 12/12/23 11:41 Date of Service: 11/25/23 EXAMINATION: US RETROPERITONEAL COMPLETE (RENAL) CLINICAL INFORMATION: Benign prostatic hyperplasia with lower urinary tract symptoms. Please measure prostate. COMPARISON: X-ray [facility] 11/06/2023 and 02/08/2022. CT abdomen and pelvis 02/08/2022. Ultrasound abdomen complete 08/24/2017. TECHNIQUE: Real-time imaging of the kidneys and bladder. FINDINGS: RIGHT KIDNEY: 12.2 x 5.4 x 5.7 cm (SAG x AP x TRV). The kidney is normal in size, contour, and echogenicity. Renal cortical thickness is normal. No calculi or focal parenchymal lesions. No hydronephrosis. LEFT KIDNEY: 12.1 x 6.2 x 6.1 cm (SAG x AP x TRV). The kidney is normal in size, contour, and echogenicity. Renal cortical thickness is normal. No calculi or focal parenchymal lesions. No hydronephrosis. BLADDER: Well distended and normal. Bilateral ureteral jets are demonstrated. Prevoid bladder volume is 181 mL. Postvoid bladder volume is 15 mL. ADDITIONAL FINDINGS: Prostate volume measured 42 mL IMPRESSION: Normal study. Assessment & Plan Assessment & Plan (1) BPH loc w urin obs/LUTS: Code(s): N40.1 - Benign prostatic hyperplasia with lower urinary tract symptoms (2) Weak urinary stream: Code(s): R39.12 - Poor urinary stream (3) Nocturia: Code(s): R35.1 - Nocturia Plan continue tamsulosin for now. Patient is following up with his eye doctor has noticed some blurred vision also states when he changes the angle of his glasses the blurred vision goes away. He will call regarding any other concerns regarding the tamsulosin and otherwise follow-up in 6 months Orders: Orders AMB Post Void Residual by ultrasound Today R33.9 - Retention of urine, unspecified AMB Urinalysis Automated Today R33.9 - Retention of urine, unspecified Patient Instructions: The patient had an opportunity to ask questions regarding treatment plan. All questions were answered. Imaging, Laboratory studies and physical exam results were discussed and reviewed in detail. No major barriers to understanding were identified. The patient expressed understanding and agreement with the above treatment plan. The patient is aware they should contact our office by phone for worsening of their current condition or the appearance of new symptoms. Compliance is encouraged with any medications and followup testing that is ordered. It is a privilege to be allowed the opportunity to participate in the urologic care of your patient. If you have any questions or concerns regarding treatment for the above conditions please do not hesitate to contact me. The office telephone contact is [phone]. This note is constructed in part using voice recognition software. While every effort has been made to ensure accuracy installation drafter errors may have been included. Yours sincerely, Shea Jarvis MD Coding Level of Care Code Est Pt Level 4 (84691) Diagnoses BPH loc w urin obs/LUTS N40.1 Weak urinary stream R39.12 Nocturia R35.1 CPT Codes Post Residual Void - PVR CPT Code: 71110-Gkcu Void Residual by ultrasound ([id number])
== END 2023-12-12 12:12 | disposition home or self-care (01) ==
PROVIDERS: PCP Nurse Practitioner Family; Visit Provider Urology
DX: N40.1 Benign prostatic hyperplasia with lower urinary tract symptoms (principal); R39.12 Poor urinary stream; R35.1 Nocturia; R33.9 Retention of urine, unspecified
CPT/HCPCS: 99214

== ENCOUNTER → 2023-12-12 11:26 | Outpatient (BNVA) | payer OTHER, SELFPAY | PROVIDERS: PCP Nurse Practitioner Family; Visit Provider Urology | DX: N40.1 Benign prostatic hyperplasia with lower urinary tract symptoms (principal); N13.8 Other obstructive and reflux uropathy; R39.12 Poor urinary stream; R35.1 Nocturia; R33.8 Other retention of urine; Z79.899 Other long term (current) drug therapy | CPT/HCPCS: 51798; 81003 ==

== ENCOUNTER 2024-01-25 10:16 | Outpatient (AMB) | payer OTHER, SELFPAY ==
--- NOTE | 2024-01-25 10:18 | A.OFFPC_ITS ---
Vital Signs 01/25/24 10:19 Height 6 ft Weight 214 lb BMI 29.0 BP 120/76 Blood Pressure Location Lt brachial Position Sitting Pulse 79 Pulse Source Pulse Oximeter Pulse Oximetry (%) 98 Oxygen Delivery Method Room Air Intake Visit Reasons: Pre Op for cataract surgery 01/31/24 Intake Note: Pt is here today for a pre op visit. Pt is having cataract surgery on 01/31/[address] Dixon. No lab or EKG needed. Allergies prednisone Allergy (Severe, Verified 01/25/24 10:35) severe headaches Medication List - Last Reconciled 01/25/24 by JAMSHID Hdz atorvastatin 80 mg PO DAILY citalopram 10 mg (5 mL) PO DAILY cyclobenzaprine 10 mg PO BEDTIME PRN dextroamphetamine-amphetamine 10 mg ER 1 cap PO DAILY famotidine 40 mg PO DAILY 90 days ibuprofen 800 mg PO Q8H levetiracetam 750 mg PO BID lisinopril 10 mg PO DAILY lorazepam 1 mg PO BID PRN tamsulosin (Flomax) 0.4 mg PO DAILY Tobacco use date assessed: 01/25/24 Fall risk assessment: No Falls in past year Last assessed Fall Risk: 01/25/24 Dental Screening Dental Screen Date: 01/25/24 Did you have a dental visit in the last 12 months?: Yes Did you have a dental problem in the last 6 months where you did not have access to dental care?: No Was dental information given to patient?: Patient has dentist HPI HPI Comments History of Present Illness Details Patient is a 68-year-old male in today for preop clearance for cataract surgery on his right eye. Patient has a past medical history significant for seizure disorder, hyperlipidemia, depression, hypertension, nocturia and GERD. Patient has no complaints at visit today. Patient is not currently utilizing blood thinning medication or aspirin, does utilize ibuprofen PRN. Patient has no complaints at the time of this appointment. [facility] Medical History Nocturia Viral respiratory illness Dehydration Fatigue Cyst of skin Acute neck sprain Screening PSA (prostate specific antigen) Constipation Vasovagal syncope Sinus headache Physical exam Stress Screening for colon cancer Insomnia Excessive daytime sleepiness Pain of hand and fingers Swelling of right hand Fatigue after vaccination Acute sinusitis Screening PSA (prostate specific antigen) Physical exam Medication refill Cellulitis Splinter Ichthyosis Family history of colon cancer Depression Seizures Surgical History Hx of colonoscopy History of hernia repair Hx of cholecystectomy Family History Father Colon cancer Mother Unknown family medical history Dementia associated with alcoholism Brother Cirrhosis Substance use disorder Son No problems noted. Son No problems noted. Social History Housing: House Are you a primary assistant child care teacher to a significant other at home: No Do you presently have visiting nurse or other home services: No Alcohol intake: never Patient Tobacco Use Status: Never used Tobacco e-Cigarette/Vaping Use: Never Used Second Hand Smoke Exposure: No Substance Use Type: Marijuana service: No Current occupational status: employed and retired Cognitive needs: No Hearing needs: No Vision needs: Yes Questionnaire PHQ-9 Over the last 2 weeks, how often have you been bothered by any of the following problems? 1. Little interest or pleasure in doing things: several days 2. Feeling down, depressed, or hopeless: not at all 3. Trouble falling or staying asleep, or sleeping too much: not at all 4. Feeling tired or having little energy: not at all 5. Poor appetite or overeating: not at all 6. Feeling bad about yourself - or that you are a failure or have let yourself or your family down: not at all 7. Trouble concentrating on things, such as reading the newspaper or watching television: not at all 8. Moving or speaking so slowly that other people could have noticed. Or the opposite - being so fidgety or restless that you have been moving around a lot more than usual: not at all 9. Thoughts that you would be better off or of hurting yourself in some way: not at all Total score: 1 Depression Screening Interpretation: Negative Depression Screening Done: Yes 59979 - PHQ-9 Billing: Yes Source: Developed by Drs. Victor Manuel Coon, Marilia Ramirez, Sebastian Lucio and colleagues, with an educational marjan from [employer]. Thrive Questionnaire Date Thrive assessed: 01/25/24 I am a: Patient What is your living situation today?: I have a steady place to live Within the past 12 months, did the food you bought not last and you didn't have the money to get more?: Never true Within the past 12 months, did you worry whether your food would run out before you got money to buy more?: Never true Do you have trouble paying for medicines?: No Do you have trouble getting transportation to medical appointments?: No Do you have trouble paying your heating and electricity bill?: No Do you have trouble taking care of your child, family member or friend?: No Do you have trouble with day-to-day activities such as bathing, preparing meals, shopping, managing finances, etc.?: No Are you currently unemployed and looking for a job?: No Are you interested in more education?: No Please select the resources that you would like help with: None THRIVE Score: 0 AUDIT C Alcohol Use Questionnaire (AUDIT-C) 1. How often do you have a drink containing alcohol?: Never 3. How often do you have six or more drinks on one occasion?: Never Total Score: 0 TUYET-7 AMB Questionnaire TUYET-7 Date TUYET - 7 assessed: 01/25/24 Feeling nervous, anxious, or on edge: 1 = Several days Not being able to stop or control worryin = Several days Worrying too much about different things: 1 = Several days Trouble relaxin = Not at all Being so restless that it is hard to sit still: 0 = Not at all Becoming easily annoyed or irritable: 0 = Not at all Feeling afraid as if something awful might happen: 0 = Not at all Total TUYET-7 score (0-4 normal; 5-9 mild; 10-14 moderate; 15-21 severe): 3 Source: Developed by Drs. Victor Manuel Coon, Marilia Ramirez, Sebastian Lucio and colleagues, with an educational marjan from [employer]. TUYET-7 Assessment Billing TUYET-7 Assessment Tool: TUYET-7 Assessment 41029 Review of Systems Const Details: Constitutional : No Weight loss, No Fever, No Chills, No Fatigue, No Malaise ENT/Mouth : No sore throat, No Rhinorrhea Eyes: No Eye Pain, No Swelling, No Redness Cardiovascular : No Chest Pain, No SOB, No Dyspnea on Exertion, No Orthopnea, No Edema, No Palpitations Respiratory : No Cough, No Sputum, No Wheezing Gastrointestinal : No Nausea, No Vomiting, No Diarrhea, No Constipation, No abdominal Pain, No Hematochezia, No Melena Musculoskeletal : No joint pain, No Myalgias, No Joint Swelling Skin : No Skin Lesions, No rash Neuro : No Weakness, No Numbness, No Dizziness, No Headache Psych : No Anxiety/Panic, No Depression Heme/Lymph: No Bruising, No Bleeding,No Lymphadenopathy All other systems reviewed and are negative Physical exam (Primary Care) Vital Signs: Last Vital Signs Pulse 79 01/25/24 10:19 Pulse Ox 98 01/25/24 10:19 Oxygen Delivery Method Room Air 01/25/24 10:19 Care Plan Goal for BP management: Blood pressure well controlled BMI result Body Mass Index 29.0 Tobacco/Smoking Status: Tobacco use Status Tobacco use date assessed 06/07/23 01/25/24 10:20 Patient Tobacco Use Status Never used Tobacco 01/25/24 10:20 e-Cigarette/Vaping Use Never Used 01/25/24 10:20 Depression Screening Interpretation: Negative Thrive Assessment: Date of Thrive Assessment Date Thrive assessed 08/31/23 01/25/24 10:20 Const Other: Appearance: Alert.? Oriented X3.? No acute distress.? Head: Normocephalic, atraumatic. Eyes: Pupils equal, round and reactive to light.? ENT: Pharynx normal.? Neck: Normal inspection.? Neck supple.? CVS: Normal heart rate and rhythm.? Pulses normal.? Respiratory: No respiratory distress.? Breath sounds normal.? Neuro: Oriented X 3.? Assessment and Plan Assessment & Plan (1) Preoperative clearance: Comment: Patient here for preoperative clearance of right cataract. Blood pressure stable and controlled. Patient is cleared for procedure. Code(s): Z01.818 - Encounter for other preprocedural examination (2) BPH loc w urin obs/LUTS: Comment: Being treated with tamsulosin. Well controlled. Code(s): N40.1 - Benign prostatic hyperplasia with lower urinary tract symptoms (3) Depression: Comment: Utilizes Citalopram. Well controlled. Code(s): F32.9 - Major depressive disorder, single episode, unspecified Qualifiers: Depression Type: unspecified Qualified Code(s): F32.A - Depression, unspecified (4) Seizures: Comment: Last seizure was over 10 years ago. Patient currently taking levetiracetam. Well controlled. Code(s): R56.9 - Unspecified convulsions (5) Right cataract: Comment: Patient having cataract removal. Code(s): H26.9 - Unspecified cataract Qualifiers: Cataract type: unspecified Qualified Code(s): H26.9 - Unspecified cataract Plan: Follow-up with PCP after procedure. Medications: Changed From cyclobenzaprine 10 mg PO BEDTIME 14 tabs 0RF M25.512 - Pain in left shoulder To cyclobenzaprine 10 mg PO BEDTIME PRN M25.512 - Pain in left shoulder Coding Level of Care Code Est Pt Level 3 (25675) Diagnoses Preoperative clearance Z01.818 BPH loc w urin obs/LUTS N40.1 Depression, unspecified depression type F32.A Depression Type: unspecified Seizures R56.9 Cataract of right eye, unspecified cataract type H26.9 Cataract type: unspecified Additional Codes TUYET-7 Assessment Billing - TUYET-7 Assessment Tool: TUYET-7 Assessment 53723 ([id number]) Time Spent (min) 22
[2024-01-25 10:19] VITALS: BP 120/76; PULSE 79; O2SAT 98; BMI 29.0
== END 2024-01-25 11:20 | disposition home or self-care (01) ==
PROVIDERS: PCP Nurse Practitioner Family; Visit Provider Nurse Practitioner Primary Care
DX: N40.1 Benign prostatic hyperplasia with lower urinary tract symptoms (principal); F32.A Depression, unspecified; R56.9 Unspecified convulsions; H26.9 Unspecified cataract; Z01.818 Encounter for other preprocedural examination
CPT/HCPCS: 99213

== ENCOUNTER 2024-02-25 11:33 | Outpatient (AMB) | payer OTHER, SELFPAY ==
[2024-02-25 11:56] VITALS: BP 112/66; PULSE 76; TEMP 36.9; O2SAT 97; BMI 29.0
--- NOTE | 2024-02-25 11:56 | AM.OFFWIN_ITS ---
Intake Vital Signs 02/25/24 11:56 Height 6 ft Weight 214 lb BMI 29.0 BP 112/66 Blood Pressure Location Rt brachial Position Sitting Pulse 76 Pulse Source Pulse Oximeter Temp 98.4 F Temp Source Oral Pulse Oximetry (%) 97 Oxygen Delivery Method Room Air Intake Visit Reasons: Est/ sinus pressure (lobby) Intake Note: Patient here for sinus pressure since Tuesday, states he has yellow mucus,fatigued. Patient Tobacco Use Status: Never used Tobacco Allergies prednisone Allergy (Severe, Verified 02/25/24 12:09) severe headaches Do you need a note to return to daycare/school/sports/work: No HPI HPI Comments History of Present Illness Details here today with complaints of sinus pressure, congestion and mucoid discharge that started on Tuesday. Had been sick with mild cold-like symptoms for 1-2 weeks prior to the onset. In addition he is feeling a little bit tired. Admits that he is prone to sinus infections. He has not tried any home remedies prior to coming in today. Otherwise he denies constitutional symptoms. [facility] Medical History Nocturia Viral respiratory illness Dehydration Fatigue Cyst of skin Acute neck sprain Screening PSA (prostate specific antigen) Constipation Vasovagal syncope Sinus headache Physical exam Stress Screening for colon cancer Insomnia Excessive daytime sleepiness Pain of hand and fingers Swelling of right hand Fatigue after vaccination Acute sinusitis Screening PSA (prostate specific antigen) Physical exam Medication refill Cellulitis Splinter Ichthyosis Family history of colon cancer Depression Seizures Surgical History Hx of colonoscopy History of hernia repair Hx of cholecystectomy Family History Father Colon cancer Mother Unknown family medical history Dementia associated with alcoholism Brother Cirrhosis Substance use disorder Son No problems noted. Son No problems noted. Social History Housing: House Are you a primary prompt care rn to a significant other at home: No Do you presently have visiting nurse or other home services: No Alcohol intake: never Patient Tobacco Use Status: Never used Tobacco e-Cigarette/Vaping Use: Never Used Second Hand Smoke Exposure: No Substance Use Type: Marijuana service: No Current occupational status: employed and retired Cognitive needs: No Hearing needs: No Vision needs: Yes Review of Systems Const All systems reviewed & are unremarkable except as noted in HPI and below Physical Exam Vital Signs: Last Vital Signs Temp 98.4 F 02/25/24 11:56 Pulse 76 02/25/24 11:56 BP 112/66 02/25/24 11:56 Pulse Ox 97 02/25/24 11:56 Oxygen Delivery Method Room Air 02/25/24 11:56 BMI result Body Mass Index 29.0 Const Other: Awake alert NAD Sclera and conjunctiva clear bilat Nares mucoid discharge, turbinates pale and edematous left worse than right, + frontalsinus tenderness with palpation bilat TM intact with effusions and bulging bilat MMM, pharynx WNL RRR LS CTAB Assessment & Plan Assessment & Plan (1) Acute bacterial sinusitis: Code(s): J01.90 - Acute sinusitis, unspecified; B96.89 - Other specified bacterial agents as the cause of diseases classified elsewhere Plan . Medications: New amoxicillin-pot clavulanate 875-125 mg 1 tab PO BID 7 days 14 tabs 0RF Patient Instructions: What Is It? Sinuses are air-filled spaces behind the bones of the upper face: between the eyes and behind the forehead, nose and cheeks. The lining of the sinuses are made up of cells with tiny hairs on their surfaces called cilia. Other cells in the lining produce mucus. The mucus traps germs and pollutants and the cilia push the mucus out through narrow sinus openings into the nose. When the sinuses become inflamed or infected, the mucus thickens and clogs the openings to one or more sinuses. Fluid builds up inside the sinuses causing increased pressure. Also bacteria can become trapped, multiply and infect the lining. This is sinusitis. Prevention There are some measures you can take to decrease your risk of developing sinusitis. If you smoke cigarettes, you should quit. The smoke can irritate nasal passageways and increase the likelihood of infection. Nasal allergies can trigger sinus infections, too. By identifying the allergen (the substance causing the allergic reaction) and avoiding it, you can help prevent sinusitis. If you have congestion from a cold or allergies, the following may help to reduce the risk of developing sinusitis: Drink lots of water. This thins nasal secretions and keeps mucous membranes moist. Use steam to soothe nasal passages. Breathe deeply while standing in a hot shower, or inhale the vapor from a basin filled with hot water while holding a towel over your head. Avoid blowing your nose with great force, which can push bacteria into the sinuses. Some doctors advise periodic home nasal washings to clear secretions. This may help prevent, and also treat, sinus infections. Treatment Many sinus infections improve without treatment. However, several medications may speed recovery and reduce the chance that an infection will become chronic. Decongestants - Congestion often triggers sinus infections, and decongestants can open the sinuses and allow them to drain. Several are available: Pseudoephedrine (Sudafed) is available without prescription, alone or in combination with other medications in multi-symptom cold and sinus remedies. Pseudoephedrine can cause insomnia, racing pulse and jitteriness. Do not use if you have high blood pressure or a heart condition. Phenylephrine (such as Sudafed PE) is an alternative lfml-jfd-gfyaegj oral decongestant. If you take products containing oral phenylephrine, check with the pharmacist to be certain there is no interaction with other medications you take. Oxymetazoline (AfrinKenrick and others) and phenylephrine (Mick-Synephrine and others) are found in nasal sprays. They are effective and may be less likely to cause the side effects seen with pseudoephedrine. However, using a nasal decongestant for more than three days can cause worse symptoms when you stop the medication. This is called the rebound effect. Antihistamines - These medications help to relieve the symptoms of nasal allergies that lead to inflammation and infections. However, some doctors advise against using antihistamines during a sinus infection because they can cause excessive drying and slow the drainage process. Apjh-lmz-fhtoxdd antihistamines include diphenhydramine (Benadryl and others), chlorpheniramine (Chlor-Trimeton and others) and loratadine (Claritin). Fexofenadine (Justine) and cetrizine (Zyrtec) are available by prescription. Nasal steroids - Anti-inflammatory sprays such as mometasone (Nasonex) and fluticasone (Flonase), both available by prescription, reduce swelling of nasal membranes. Like antihistamines, nasal steroids can be most useful for those who have nasal allergies. Nasal steroids tend to produce less drying than antihistamines. Unlike nasal decongestants, nasal steroids can be used for prolonged periods. Saline nasal sprays - These salt-water sprays are safe to use and can provide some relief by adding moisture to the nasal passages, thinning mucus secretions and helping to flush out any bacteria that may be present. Pain relievers - Acetaminophen (Tylenol), ibuprofen (Advil, Motrin and others) or naproxen (Aleve) can be taken sinus pain. Antibiotics - Your doctor may prescribe an antibiotic if he or she suspects that a bacterial infection is causing your sinusitis. If you start taking an antibiotic, complete the entire course so that the infection is completely killed off. Not all cases of sinusitis require antibiotic treatment: Talk with your doctor about whether an antibiotic is right for you. Keep in mind that antibiotics can cause side effects, such as allergic reactions, rash and diarrhea. In addition, overusing antibiotics eventually leads to the spread of bacteria that no longer can be killed by the most commonly prescribed antibiotics. When To Call A Professional Contact a doctor if you experience facial pain along with a headache and fever, cold symptoms that last longer than seven to 10 days, or persistent green discharge from the nose. If your symptoms don't improve within a week of beginning treatment, call your doctor. Call sooner if symptoms are getting worse. If you have repeated bouts of acute sinusitis, you may have allergies or another treatable cause of sinus congestion. Ask your doctor for advice. Coding Level of Care Code Est Pt Level 3 (46817) Diagnoses Acute bacterial sinusitis J01.90; B96.89
== END 2024-02-25 12:33 | disposition home or self-care (01) ==
PROVIDERS: PCP Nurse Practitioner Family; Visit Provider Nurse Practitioner Family
DX: J01.90 Acute sinusitis, unspecified (principal); B96.89 Other specified bacterial agents as the cause of diseases classified elsewhere
CPT/HCPCS: 99213

== ENCOUNTER 2024-03-05 09:43 | Outpatient (AMB) | payer OTHER, SELFPAY ==
--- NOTE | 2024-03-05 09:58 | A.OFFPC_ITS ---
Vital Signs 03/05/24 10:00 Height 6 ft Weight 214 lb 6 oz BMI 29.1 BP 108/70 Blood Pressure Location Rt brachial Position Sitting Pulse 62 Pulse Source Pulse Oximeter Pulse Oximetry (%) 97 Oxygen Delivery Method Room Air Intake Visit Reasons: 6 month fu Intake Note: Patient here to discuss tendinitis and has been getting injections w/Betsy but was told he cannot get in for 1 month to get another cortisone shot. . Allergies prednisone Allergy (Severe, Verified 03/05/24 10:01) severe headaches Medication List - Last Reconciled 03/05/24 by SELENE Owens amoxicillin-pot clavulanate 875-125 mg 1 tab PO BID 7 days atorvastatin 80 mg PO DAILY citalopram 10 mg (5 mL) PO DAILY dextroamphetamine-amphetamine 10 mg ER 1 cap PO DAILY famotidine 40 mg PO DAILY 90 days ibuprofen 800 mg PO Q8H levetiracetam 750 mg PO BID lisinopril 10 mg PO DAILY lorazepam 1 mg PO BID PRN Tobacco use date assessed: 01/25/24 Fall risk assessment: No Falls in past year Last assessed Fall Risk: 03/05/24 Dental Screening Dental Screen Date: 01/25/24 HPI 6 month fu HPI Details Pt reports ear pressure. Ears look normal on exam. Pt has right trigger finger. He will be following up with a hand surgeon for this. Pt was requesting a cortisone injection. Denies fever, chills, and dizziness. PFSH Medical History Nocturia Viral respiratory illness Dehydration Fatigue Cyst of skin Acute neck sprain Screening PSA (prostate specific antigen) Constipation Vasovagal syncope Sinus headache Physical exam Stress Screening for colon cancer Insomnia Excessive daytime sleepiness Pain of hand and fingers Swelling of right hand Fatigue after vaccination Acute sinusitis Screening PSA (prostate specific antigen) Physical exam Medication refill Cellulitis Splinter Ichthyosis Family history of colon cancer Depression Seizures Surgical History Hx of colonoscopy History of hernia repair Hx of cholecystectomy Family History Father Colon cancer Mother Unknown family medical history Dementia associated with alcoholism Brother Cirrhosis Substance use disorder Son No problems noted. Son No problems noted. Social History Housing: House Are you a primary post acute care registered nurse to a significant other at home: No Do you presently have visiting nurse or other home services: No Alcohol intake: never Patient Tobacco Use Status: Never used Tobacco e-Cigarette/Vaping Use: Never Used Second Hand Smoke Exposure: No Substance Use Type: Marijuana service: No Current occupational status: employed and retired Cognitive needs: No Hearing needs: No Vision needs: Yes Questionnaire Thrive Questionnaire Date Thrive assessed: 01/25/24 TUYET-7 AMB Questionnaire TUYET-7 Date TUYET - 7 assessed: 01/25/24 Source: Developed by Drs. Victor Manuel Coon, Marilia Ramirez, Sebastian Lucio and colleagues, with an educational marjan from [employer]. Review of Systems Const Reports as per HPI Physical exam (Primary Care) Vital Signs: Last Vital Signs Pulse 62 03/05/24 10:00 BP 108/70 03/05/24 10:00 Pulse Ox 97 03/05/24 10:00 Oxygen Delivery Method Room Air 03/05/24 10:00 BMI result Body Mass Index 29.1 Tobacco/Smoking Status: Tobacco use Status Tobacco use date assessed 01/25/24 03/05/24 09:59 Patient Tobacco Use Status Never used Tobacco 03/05/24 09:59 e-Cigarette/Vaping Use Never Used 03/05/24 09:59 Thrive Assessment: Date of Thrive Assessment Date Thrive assessed 01/25/24 03/05/24 09:59 Const General: cooperative Orientation/consciousness: patient oriented x3 HENMT Ears: TM's normal bilaterally Resp Effort & Inspection: normal respiratory effort Auscultation: clear to auscultation bilaterally Cardio Rate: regular rate Rhythm: regular rhythm Heart sounds: S1 normal heart sound present and S2 normal heart sound present Neuro General: patient oriented x3 Extrem Other: right ringer finger, trigger finger noted, still able to extend and flex 4th right finger Psych Appearance: grossly normal Mental Status: mental status grossly normal Speech and movement: Normal speech and movement present Affect: normal affect Attitude: cooperative Thought process: Normal thought process present Thought content: Normal thought content present Insight: Good insight present (Psych) Judgement: Good judgement present (Psych) Assessment and Plan Assessment & Plan (1) Ear fullness: Code(s): H93.8X9 - Other specified disorders of ear, unspecified ear Plan: ear without effusion, no signs of infection (2) Trigger finger: Code(s): M65.30 - Trigger finger, unspecified finger Plan: right ring finger, already sees ortho for this. Plan The patient agreed to the use of a medical information officer for this encounter. Scribed for JAMSHID Stuart-HARMONY by Cassi Mullen, medical information officer, on 03/05/2024 at 10:15 EST. Coding Level of Care Code Est Pt Level 3 (06906) Diagnoses Ear fullness H93.8X9 Trigger finger M65.30
[2024-03-05 10:00] VITALS: BP 108/70; PULSE 62; O2SAT 97; BMI 29.1
== END 2024-03-05 11:53 | disposition home or self-care (01) ==
PROVIDERS: PCP Nurse Practitioner Family; Visit Provider Nurse Practitioner Family
DX: H93.8X9 Other specified disorders of ear, unspecified ear (principal); M65.30 Trigger finger, unspecified finger
CPT/HCPCS: 99213

== ENCOUNTER 2024-06-14 10:56 | Outpatient (AMB) | payer OTHER, SELFPAY ==
--- NOTE | 2024-06-14 10:57 | A.OFFVIS_ITS ---
Intake Visit Reasons: 6m follow up/PVR Intake Note: Patient presents today for a 6M follow-up/PVR Meds- Tamsulosin Allergies to Antibiotic- No Known Allergies Blood Thinner- None Post Void Residual: 42ml TODAYS PVR: OML'S Manager Medicaid Required: No Accompanied by: Self / Same As Patient Allergies prednisone Allergy (Severe, Verified 06/14/24 10:58) severe headaches HPI Comments Details: 06/14/24--Mj is here for follow-up for BPH and lower urinary tract symptoms of urgency frequency and nocturia. He states he is tolerating the tamsulosin, and feels that his urinary flow has improved, denies irritative voiding symptoms. Review of chart: 12/12/2023--Mj is here for follow-up for BPH and lower urinary tract symptoms of urgency frequency and nocturia. He was initially evaluated in September 2023 in started on tamsulosin. He was sent for renal ultrasound. He had a renal ultrasound done I have reviewed the results with him. Kidneys are within normal limits estimated prostate volume, 42 mL. Mj states that he has noticed improvement after a couple of weeks of the tamsulosin he is only getting up 1 time at night instead of 3-4 times. He has also noticed that he gets some blurred vision, he has also been on medication due to a sprain shoulder and plans to see his eye doctor for evaluation. Evaluation: Urinalysis- no signs of infection, bladder scan PVR 42 mL 11/25/2023 Renal ultrasound--kidneys within normal limits negative for parenchymal lesions or cysts. BLADDER: Well distended and normal. Bilateral ureteral jets are demonstrated. Prevoid bladder volume is 181 mL. Postvoid bladder volume is 15 mL. Prostate volume measured 42 mL 10/24/2023--Mj is a 68 year old male who is here for evaluation for weak urinary stream. Past Medical history - Ichthyosis, Family history of colon cancer, Insomnia, Depression, Seizures The patient complains of daytime urinary frequency every hours, nocturia, hematuria, dysuria, feeling of incomplete bladder emptying, coffee --2-3, in AM, less water, history of kidney stones, family history of coolon cancer, at age 68, denies prior nicotine use. I have discussed avoiding dietary bladder irritants, including to cut back on caffeine usage. I have discussed workup to include evaluation of the upper tracts and consideration for cystoscopy evaluation. UA-Bladder scan Post Void Residual: 43 mL, Prostate exam- smooth, firm left apex 06/2023 PSA 2.68; Plan: US Retroperitoneum, tamsulosin, fu in 6 weeks, cont PSA screening, [facility] Medical History Nocturia Viral respiratory illness Dehydration Fatigue Cyst of skin Acute neck sprain Screening PSA (prostate specific antigen) Constipation Vasovagal syncope Sinus headache Physical exam Stress Screening for colon cancer Insomnia Excessive daytime sleepiness Pain of hand and fingers Swelling of right hand Fatigue after vaccination Acute sinusitis Screening PSA (prostate specific antigen) Physical exam Medication refill Cellulitis Splinter Ichthyosis Family history of colon cancer Depression Seizures Surgical History Hx of colonoscopy History of hernia repair Hx of cholecystectomy Family History Father Colon cancer Mother Unknown family medical history Dementia associated with alcoholism Brother Cirrhosis Substance use disorder Son No problems noted. Son No problems noted. Social History Housing: House Are you a primary continuum of care manager to a significant other at home: No Do you presently have visiting nurse or other home services: No Alcohol intake: never Patient Tobacco Use Status: Never used Tobacco e-Cigarette/Vaping Use: Never Used Second Hand Smoke Exposure: No Substance Use Type: Marijuana service: No Current occupational status: employed and retired Cognitive needs: No Hearing needs: No Vision needs: Yes Review of Systems Const All systems reviewed & are unremarkable except as noted in HPI and below Reports no additional complaints Eyes Reports no additional complaints ENT Reports no additional complaints Card Reports no additional complaints Resp Reports no additional complaints GI Reports no additional complaints Reports as per HPI Musc Reports no additional complaints Skin/Breast Reports system reviewed and no additional complaints, except as documented Neuro Reports no additional complaints Psych Reports no additional complaints Endo Reports no additional complaints Ricky/Lymph Reports no additional complaints Aller/Immun Reports no additional complaints Office Procedures Post Void Residual Post Residual Void Post Void Residual (PVR): 0 [id number] Void Residual by ultrasound Results AMB Urinalysis, Automated UA Leukoctes 0 Abeba/uL Last Edit by Nicko Rees CCM on 06/14/24 11:08 UA Nitrite Negative Last Edit by Nicko Rees [facility] on 06/14/24 11:08 UA Urobilinogen 0.2 mg/dL Last Edit by Nicko Rees [facility] on 06/14/24 11:0 8 UA Protein 0 mg/dL Last Edit by Nicko Rees [facility] on 06/14/24 11:08 UA pH 5.5 Last Edit by Nicko Rees [facility] on 06/14/24 11:08 UA Blood 0 Vic/uL Last Edit by Nicko Rees [facility] on 06/14/24 11:08 UA Specific Staley 1.030 Last Edit by Nicko Rees [facility] on 06/14/24 11: 08 UA Ketone Negative Last Edit by Nicko Rees [facility] on 06/14/24 11:08 UA Bilirubin 0 mg/dL Last Edit by Nicko Rees [facility] on 06/14/24 11:08 UA Glucose 0 mg/dL Last Edit by Nicko Rees [facility] on 06/14/24 11:08 Results Reviewed Results Reviewed: Laboratory Last Values Urine pH (Auto) 5.5 06/14/24 11:06 Specific Staley (Auto) 1.030 06/14/24 11:06 Urine Protein (Auto) 0 mg/dL 06/14/24 11:06 Glucose (UA)(Auto) 0 mg/dL 06/14/24 11:06 Urine Ketones (Auto) Negative 06/14/24 11:06 Urine Blood (Auto) 0 Vic/uL 06/14/24 11:06 Urine Nitrite (Auto) Negative 06/14/24 11:06 Urine Bilirubin (Auto) 0 mg/dL 06/14/24 11:06 Urine Urobilinogen (Auto) 0.2 mg/dL 06/14/24 11:06 Leukocyte Esterase (Auto) 0 Abeba/uL 06/14/24 11:06 Assessment & Plan Assessment & Plan (1) BPH loc w urin obs/LUTS: Comment: Being treated with tamsulosin. Well controlled. Code(s): N40.1 - Benign prostatic hyperplasia with lower urinary tract symptoms Category: Medical (2) Weak urinary stream: Code(s): R39.12 - Poor urinary stream Category: Medical (3) Nocturia: Code(s): R35.1 - Nocturia Category: Medical Plan cont tamsulosin, PSA screening. Orders: Orders AMB Urinalysis Automated 06/14/24 Z13.9 - Encounter for screening, unspecified Patient Instructions: The patient had an opportunity to ask questions regarding treatment plan. The patient expressed understanding and agreement with the above treatment plan. The patient is aware they should contact our office by phone for worsening of their current condition or the appearance of new symptoms. Compliance is encouraged with any medications and followup testing that is ordered. It is a privilege to be allowed the opportunity to participate in the urologic care of your patient. If you have any questions or concerns regarding treatment for the above conditions please do not hesitate to contact me. The office telephone contact is [phone]. This note is constructed in part using voice recognition software. While every effort has been made to ensure accuracy quickbooks bookkeeper errors may have been included. Yours sincerely, Shea Jarvis MD Coding Level of Care Code Est Pt Level 3 (91896) Diagnoses BPH loc w urin obs/LUTS N40.1 Weak urinary stream R39.12 Nocturia R35.1 CPT Codes Post Residual Void - PVR CPT Code: 45476-Bhgq Void Residual by ultrasound ([id number])
== END 2024-06-14 11:22 | disposition home or self-care (01) ==
PROVIDERS: PCP Nurse Practitioner Family; Visit Provider Urology
DX: N40.1 Benign prostatic hyperplasia with lower urinary tract symptoms (principal); R39.12 Poor urinary stream; R35.1 Nocturia
CPT/HCPCS: 99213

== ENCOUNTER → 2024-06-14 10:56 | Outpatient (BNVA) | payer OTHER, SELFPAY | PROVIDERS: PCP Nurse Practitioner Family; Visit Provider Urology | DX: N40.1 Benign prostatic hyperplasia with lower urinary tract symptoms (principal); N13.8 Other obstructive and reflux uropathy; R35.0 Frequency of micturition; R35.1 Nocturia; R39.12 Poor urinary stream; Z79.899 Other long term (current) drug therapy | CPT/HCPCS: 51798; 81003 ==

== ENCOUNTER 2024-07-21 10:48 | Outpatient (AMB) | payer OTHER, SELFPAY ==
[2024-07-21 11:49] VITALS: BP 104/70; PULSE 73; TEMP 36.6; O2SAT 95; BMI 29.0
--- NOTE | 2024-07-21 11:49 | MHC.OFFWIV ---
Intake Vital Signs 07/21/24 11:49 Height 6 ft Weight 214 lb BMI 29.0 BP 104/70 Blood Pressure Location Lt brachial Position Sitting Pulse 73 Pulse Source Pulse Oximeter Temp 97.8 F Temp Source Oral Pulse Oximetry (%) 95 Oxygen Delivery Method Room Air Intake Visit Reasons: EP Fingers/tendons ~ burning sensation Intake Note: Pt is here today c/o bilateral hands fingers and tendon burning sensation after using a rotator equipment at home Patient Tobacco Use Status: Never used Tobacco Allergies prednisone Allergy (Severe, Verified 09/24/24 09:51) severe headaches HPI EP Fingers/tendons ~ burning sensation HPI Details Patient is a 69-year-old male comes to the walk-in clinic with bilateral hand pain after using a vibrating machine for few days. Symptoms were resolving with ibuprofen until he persisted with the use of the vibration and use of the hands, and as of last night his symptoms persisted for few hours and kept him awake. Today he has some mild tingling and burning sensation to all of his fingers. No weakness. [facility] Medical History (Updated 09/24/24 @ 09:53 by Michael Rich, [facility]) Physical exam Acute sinusitis Nocturia Viral respiratory illness Dehydration Fatigue Cyst of skin Acute neck sprain Screening PSA (prostate specific antigen) Constipation Vasovagal syncope Sinus headache Stress Screening for colon cancer Insomnia Excessive daytime sleepiness Pain of hand and fingers Swelling of right hand Fatigue after vaccination Screening PSA (prostate specific antigen) Physical exam Medication refill Cellulitis Splinter Ichthyosis Family history of colon cancer Depression Seizures Surgical History Hx of colonoscopy History of hernia repair Hx of cholecystectomy Family History Father Colon cancer Mother Unknown family medical history Dementia associated with alcoholism Brother Cirrhosis Substance use disorder Son No problems noted. Son No problems noted. Social History Housing: House Are you a primary day care attendant to a significant other at home: No Do you presently have visiting nurse or other home services: No Alcohol intake: never Patient Tobacco Use Status: Never used Tobacco e-Cigarette/Vaping Use: Never Used Second Hand Smoke Exposure: No Substance Use Type: Marijuana service: No Current occupational status: employed and retired Cognitive needs: No Hearing needs: No Vision needs: Yes Review of Systems Const All systems reviewed & are unremarkable except as noted in HPI and below Physical Exam Vital Signs: Last Vital Signs Temp 97.8 F 07/21/24 11:49 Pulse 73 07/21/24 11:49 BP 104/70 07/21/24 11:49 Pulse Ox 95 07/21/24 11:49 Oxygen Delivery Method Room Air 07/21/24 11:49 BMI result Body Mass Index 29.0 Extrem Right upper extremity: full ROM and Extremity exam: right hand Details: normal to inspection, normal capillary refill, neuromotor exam normal, neurosensory exam abnormal (Slightly diminished sensation tips), vascular exam Details: radial pulse present, ulnar pulse present and normal capillary refill; not cool and no cyanosis and normal ROM of fingers; no unusual warmth and no swelling Left upper extremity: hand Details: normal to inspection, normal capillary refill, tendon exam normal, tenderness, vascular exam and normal ROM of fingers; no unusual warmth, no swelling and no ecchymosis Assessment & Plan Assessment & Plan (1) Tendinitis: Code(s): M77.9 - Enthesopathy, unspecified Plan: Patient with apparent repetitive use 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 Symptoms were resolving with ibuprofen until he persisted with the use of the vibration and use of the hands, and as of last night his symptoms persisted for few hours and kept him awake. Today he has some mild tingling and burning sensation to all of his fingers. He has full range of motion and strength however. We discussed that he should use an anti-inflammatory, and as ibuprofen did not relieve his symptoms last night, per his request I wrote him for short course of prednisone. We reviewed his risk factors due to his age. He denies hypertension, GI bleed or acid reflux, or cardiac issues. He should transition over to a nonsteroidal after the steroid course if symptoms persist. He should also be considered for hand evaluation as needed at that point, however he desires referral today. He knows to follow up sooner in the meantime if symptoms worsen Orders: Referrals Orthopedics Referral X50.3XXA - Overexertion from repetitive movements, initial encounter Medications: New prednisone 40 mg (2 x 20 mg) PO DAILY 10 tabs 0RF 5 days Coding Level of Care Code Est Pt Level 3 (60510) Diagnoses Tendinitis M77.9
== END 2024-07-21 12:27 | disposition home or self-care (01) ==
PROVIDERS: PCP Nurse Practitioner Family; Visit Provider Physician Assistant Medical
DX: M77.9 Enthesopathy, unspecified (principal)

== ENCOUNTER → 2024-07-21 10:48 | Outpatient (BNVA) | payer OTHER, SELFPAY | PROVIDERS: PCP Nurse Practitioner Family ==

== ENCOUNTER 2024-08-14 09:57 | Outpatient (AMB) | payer OTHER, SELFPAY ==
--- NOTE | 2024-08-14 10:22 | AM.OFFWIN_ITS ---
Intake Vital Signs 08/14/24 10:24 Height 6 ft Weight 215 lb BMI 29.2 BP 140/80 H Blood Pressure Location Lt brachial Position Sitting Pulse 96 Pulse Source Pulse Oximeter Temp 97.5 F Temp Source Oral Pulse Oximetry (%) 95 Oxygen Delivery Method Room Air Intake Visit Reasons: EP-?sinus infection Intake Note: Patient here for possible sinus infection that started about 1 week now. Patient Tobacco Use Status: Never used Tobacco Allergies prednisone Allergy (Severe, Verified 08/14/24 10:25) severe headaches Do you need a note to return to daycare/school/sports/work: No HPI HPI Comments History of Present Illness Details The patient is a 69-year-old male presenting with sinus and respiratory symptoms. He reports being unwell for seven days, with the illness commencing approximately one week ago after exposure to dry and misbah conditions while helping his son in [place]. The patient describes waking up with a pounding headache and significant head congestion. He reports a history of frequent sinus infections, mentioning having had hundreds in the past. He experienced fatigue, a dry cough with occasional clear expectoration, and sinus pressure but no significant ear pain. There is no history of fever, shortness of breath, wheezing, asthma, or COPD. The patient does not smoke. His symptoms appear to improve slightly by mid-morning after using an ice pack on his head. He sought medical attention for evaluation as uncertainties about resolution persisted, impacting daily activities. [facility] Medical History (Updated 08/14/24 @ 10:54 by Eloisa Szymasnki PA-C) Acute sinusitis Nocturia Viral respiratory illness Dehydration Fatigue Cyst of skin Acute neck sprain Screening PSA (prostate specific antigen) Constipation Vasovagal syncope Sinus headache Physical exam Stress Screening for colon cancer Insomnia Excessive daytime sleepiness Pain of hand and fingers Swelling of right hand Fatigue after vaccination Screening PSA (prostate specific antigen) Physical exam Medication refill Cellulitis Splinter Ichthyosis Family history of colon cancer Depression Seizures Surgical History Hx of colonoscopy History of hernia repair Hx of cholecystectomy Family History Father Colon cancer Mother Unknown family medical history Dementia associated with alcoholism Brother Cirrhosis Substance use disorder Son No problems noted. Son No problems noted. Social History Housing: House Are you a primary career and guidance counselor to a significant other at home: No Do you presently have visiting nurse or other home services: No Alcohol intake: never Patient Tobacco Use Status: Never used Tobacco e-Cigarette/Vaping Use: Never Used Second Hand Smoke Exposure: No Substance Use Type: Marijuana service: No Current occupational status: employed and retired Cognitive needs: No Hearing needs: No Vision needs: Yes Physical Exam Vital Signs: Last Vital Signs Temp 97.5 F 08/14/24 10:24 Pulse 96 08/14/24 10:24 BP 140/80 H 08/14/24 10:24 Pulse Ox 95 08/14/24 10:24 Oxygen Delivery Method Room Air 08/14/24 10:24 BMI result Body Mass Index 29.2 Const General: cooperative, healthy appearing, comfortable and no acute distress Orientation/consciousness: patient oriented x3 Limitations: no limitations HEENT Head: Yes normal to inspection Ears: hearing grossly normal bilaterally, external ears normal and TM's normal bilaterally General nose exam: Normal external nose present, Normal nares present and No nasal discharge present Face and sinus: Yes normal facial exam and Yes sinus tenderness Mouth: Normal oral and palatal mucosa present and moist mucous membranes Throat: Yes tonsils normal, Yes uvula midline and Yes posterior oropharynx abnormal (Erythema) Eyes General: appearance normal, both eyes and all related structures Neck Neck: Yes normal visual inspection Resp Effort & Inspection: normal respiratory effort, able to speak in complete sentences, Actively coughing, no respiratory distress, not tachypneic, no tripod positioning and no use of accessory muscles Auscultation: clear to auscultation bilaterally Cardio Rate: regular rate Rhythm: regular rhythm Heart sounds: normal S1 and S2 Skin General skin exam: no rashes or lesions noted Neuro General: patient oriented x3 Extrem General: Yes normal to inspection and Yes no clubbing, cyanosis or edema Assessment & Plan Assessment & Plan (1) Acute sinusitis: Code(s): J01.90 - Acute sinusitis, unspecified Qualifiers: Sinusitis location: frontal Recurrence: non-recurrent Qualified Code(s): J01.10 - Acute frontal sinusitis, unspecified Plan: For Sinusitis and Allergic Rhinitis, I recommend the use of a neti pot with distilled water to irrigate nasal passages in the morning and evening. Following nasal irrigation, a nasal spray, such as Flonase or saline nasal spray, is advised to alleviate symptoms. Proper technique for nasal sprays includes angling towards the cheekbones to ensure adequate delivery to the sinuses. The patient does not require testing for influenza, COVID-19, or RSV at this time, as the presentation aligns with irritant exposure. He is advised to return if symptoms worsen or if any new significant symptoms arise, such as shortness of breath or fever. Coding Level of Care Code Est Pt Level 3 (58388) Diagnoses Acute non-recurrent frontal sinusitis J01.10 Sinusitis location: frontal Recurrence: non-recurrent
[2024-08-14 10:24] VITALS: BP 140/80; PULSE 96; TEMP 36.4; O2SAT 95; BMI 29.2
== END 2024-08-14 11:14 | disposition home or self-care (01) ==
PROVIDERS: PCP Nurse Practitioner Family; Visit Provider Physician Assistant
DX: J01.10 Acute frontal sinusitis, unspecified (principal)

== ENCOUNTER 2024-08-31 10:03 | Outpatient (AMB) | payer OTHER, SELFPAY ==
--- NOTE | 2024-08-31 10:06 | AM.OFFWIN_ITS ---
Intake Vital Signs 08/31/24 10:09 Weight 218 lb BP 138/86 Blood Pressure Location Lt brachial Position Sitting Pulse 70 Pulse Source Pulse Oximeter Temp 97.8 F Temp Source Oral Pulse Oximetry (%) 96 Oxygen Delivery Method Room Air Intake Visit Reasons: EP-sinus infection Intake Note: Patient here for possible sinus infection Patient Tobacco Use Status: Never used Tobacco Allergies prednisone Allergy (Severe, Verified 08/31/24 10:09) severe headaches Do you need a note to return to daycare/school/sports/work: No HPI HPI Comments History of Present Illness Details This is a 69-year-old male who presented to the walk-in clinic complaining of sinus pain/congestion. He states he has had increased nasal congestion and rhinorrhea for the past 2 or 3 weeks but it has been clear nasal discharge. This morning, he woke up with significantly increased nasal congestion and rhinorrhea and his nasal discharge is yellow green. He denies any fever/chills. He denies any otalgia. He also reports a ?scratchy throat with a cough that occurs mostly at night time. [facility] Medical History (Updated 08/14/24 @ 10:54 by Eloisa Szymanski PA-C) Acute sinusitis Nocturia Viral respiratory illness Dehydration Fatigue Cyst of skin Acute neck sprain Screening PSA (prostate specific antigen) Constipation Vasovagal syncope Sinus headache Physical exam Stress Screening for colon cancer Insomnia Excessive daytime sleepiness Pain of hand and fingers Swelling of right hand Fatigue after vaccination Screening PSA (prostate specific antigen) Physical exam Medication refill Cellulitis Splinter Ichthyosis Family history of colon cancer Depression Seizures Surgical History Hx of colonoscopy History of hernia repair Hx of cholecystectomy Family History Father Colon cancer Mother Unknown family medical history Dementia associated with alcoholism Brother Cirrhosis Substance use disorder Son No problems noted. Son No problems noted. Social History Housing: House Are you a primary caregivers homecare to a significant other at home: No Do you presently have visiting nurse or other home services: No Alcohol intake: never Patient Tobacco Use Status: Never used Tobacco e-Cigarette/Vaping Use: Never Used Second Hand Smoke Exposure: No Substance Use Type: Marijuana service: No Current occupational status: employed and retired Cognitive needs: No Hearing needs: No Vision needs: Yes Review of Systems Const All systems reviewed & are unremarkable except as noted in HPI and below Reports no additional complaints Eyes Reports no additional complaints ENT Reports no additional complaints Card Reports no additional complaints Resp Reports no additional complaints GI Reports no additional complaints Reports no additional complaints Musc Reports no additional complaints Skin/Breast Reports system reviewed and no additional complaints, except as documented Neuro Reports no additional complaints Psych Reports no additional complaints Endo Reports no additional complaints Ricky/Lymph Reports no additional complaints Aller/Immun Reports no additional complaints Physical Exam Vital Signs: Last Vital Signs Temp 97.8 F 08/31/24 10:09 Pulse 70 08/31/24 10:09 BP 138/86 08/31/24 10:09 Pulse Ox 96 08/31/24 10:09 Oxygen Delivery Method Room Air 08/31/24 10:09 Const Other: Vital signs reviewed. Constitutional: Non-toxic appearing. No acute distress. Well-developed and well-nourished. HEENT: Normocephalic and atraumatic. Tympanic membranes without erythema, edema, or bulging bilaterally. External auditory canals without erythema or edema bilaterally. Moist mucous membranes. No pharyngeal erythema or exudates. Skin: Warm and dry. No rashes or lesions noted. Neck: Full and painless range of motion. No cervical lymphadenopathy. Cardio: Regular rate. No lower extremity edema. No JVD. Pulmonary: No respiratory distress. No accessory muscle usage. Musculoskeletal: Normal range of motion in joints throughout the body. No deformity or other signs of injury. Neuro: Alert and oriented x4. Cranial nerves 2-12 grossly intact. No focal deficits appreciated. Psych: Normal mood and affect. Assessment & Plan Assessment & Plan (1) Acute rhinosinusitis: Code(s): J01.90 - Acute sinusitis, unspecified Plan: This is a 69-year-old male who presented to the walk-in clinic complaining of sinus pain/congestion. Patient reports increased nasal congestion and rhinorrhea for the past 3 weeks but woke up this morning with sinus pain and yellow-green nasal discharge. History and physical most consistent with acute rhinosinusitis, possibly bacterial but more likely viral. Patient was given a prescription for p.o. azithromycin 500 mg today followed by 250 mg daily x4 days as he states this typically makes him feel better. He was also given a prescription for p.o. benzonatate 200 mg 3 times daily as needed for cough and fluticasone nasal spray. Recommended symptomatic management including rest, increased fluids, advil/tylenol for pain/fever, over the counter throat lozenges/decongestants, and humidifier at bedtime. Patient advised to follow up here or go to the emergency room for worsening/persistent symptoms. Patient verbalized understanding and is agreeable with the plan. Medications: New azithromycin For 250 mg dose pack: take 500 mg today (day 1), then 250 mg for 4 days (days 2-5) PO 6 tabs 0RF benzonatate 200 mg PO TID PRN 10 caps 0RF cough fluticasone propionate 50 mcg/actuation (Allergy Relief (fluticasone)) administer into each nostril 1 spray intranasal DAILY 16 grams 0RF Coding Level of Care Code Est Pt Level 3 (38927) Diagnoses Acute rhinosinusitis J01.90
[2024-08-31 10:09] VITALS: BP 138/86; PULSE 70; TEMP 36.6; O2SAT 96
== END 2024-08-31 10:53 | disposition home or self-care (01) ==
PROVIDERS: PCP Nurse Practitioner Family; Visit Provider Physician Assistant Medical
DX: J01.90 Acute sinusitis, unspecified (principal)

== ENCOUNTER → 2024-08-31 10:03 | Outpatient (BNVA) | payer OTHER, SELFPAY | PROVIDERS: PCP Nurse Practitioner Family; Visit Provider Physician Assistant ==

== ENCOUNTER 2024-09-12 10:03 | Outpatient (AMB) | payer OTHER, SELFPAY ==
[2024-09-12 10:05] VITALS: BP 130/80; PULSE 81; TEMP 36.7; O2SAT 99; BMI 29.6
--- NOTE | 2024-09-12 10:05 | MHC.OFFWIV ---
Intake Vital Signs 09/12/24 10:05 Height 6 ft Weight 218 lb BMI 29.6 BP 130/80 Blood Pressure Location Lt brachial Position Sitting Pulse 81 Pulse Source Pulse Oximeter Temp 98.0 F Temp Source Oral Pulse Oximetry (%) 99 Oxygen Delivery Method Room Air Intake Visit Reasons: EP Sinus infection not better after abx Intake Note: Patient here because he is still having sinus pressure after finishing antibiotics. Patient Tobacco Use Status: Never used Tobacco Allergies prednisone Allergy (Severe, Verified 09/12/24 10:06) severe headaches Do you need a note to return to daycare/school/sports/work: No HPI HPI Comments History of Present Illness Details History The patient is a 69-year-old male presenting with ongoing sinus infection symptoms. He initially visited on August 14 with viral sinusitis symptoms, which did not resolve after three weeks. He requested and was prescribed a course of Azithromycin (Z-Ayaan) on August 31 but reports no improvement in symptoms. The patient currently describes experiencing nasal congestion and sinus pressure. He has a history of similar sinus infections and typically finds that Azithromycin provides relief, although this time the symptoms have persisted. The patient also reports associated symptoms of fatigue after minimal exertion, as experienced during a recent home improvement task. The patient denies any shortness of breath or wheezing but does report occasional nocturnal cough and expectoration of clear phlegm. He reports frontal sinus tenderness when waking for the day but it fades as the day goes on. Physical Exam General: Cooperative, healthy appearing, comfortable and no acute distress Orientation/consciousness: Patient oriented x3 Limitations: No limitations Head: Normal to inspection Ears: Hearing grossly normal bilaterally, external ears normal and TM's normal bilaterally. Nose: Normal external nose present, Normal nares present and No nasal discharge present Face and sinus: Normal facial exam and Yes sinuses nontender Mouth: Normal oral and palatal mucosa present and moist mucous membranes Throat: Yes tonsils normal, Yes uvula midline. Posterior oropharynx erythema with cobblestoning present Eyes: Appearance normal, both eyes and all related structures Neck: Normal visual inspection Respiratory: Clear to auscultation bilaterally. Normal respiratory effort, able to speak in complete sentences, no respiratory distress, not tachypneic, no tripod positioning and no use of accessory muscles Cardiovascular: Regular rate and rhythm. Normal S1 and S2 Skin: No rashes or lesions noted Neuro: Patient oriented x3 Extremities: Normal to inspection and Yes no clubbing, cyanosis or edema PFSH Medical History (Updated 08/14/24 @ 10:54 by Eloisa Szymanski PA-C) Acute sinusitis Nocturia Viral respiratory illness Dehydration Fatigue Cyst of skin Acute neck sprain Screening PSA (prostate specific antigen) Constipation Vasovagal syncope Sinus headache Physical exam Stress Screening for colon cancer Insomnia Excessive daytime sleepiness Pain of hand and fingers Swelling of right hand Fatigue after vaccination Screening PSA (prostate specific antigen) Physical exam Medication refill Cellulitis Splinter Ichthyosis Family history of colon cancer Depression Seizures Surgical History Hx of colonoscopy History of hernia repair Hx of cholecystectomy Family History Father Colon cancer Mother Unknown family medical history Dementia associated with alcoholism Brother Cirrhosis Substance use disorder Son No problems noted. Son No problems noted. Social History Housing: House Are you a primary emergency care tech to a significant other at home: No Do you presently have visiting nurse or other home services: No Alcohol intake: never Patient Tobacco Use Status: Never used Tobacco e-Cigarette/Vaping Use: Never Used Second Hand Smoke Exposure: No Substance Use Type: Marijuana service: No Current occupational status: employed and retired Cognitive needs: No Hearing needs: No Vision needs: Yes Review of Systems Const All systems reviewed & are unremarkable except as noted in HPI and below Physical Exam Vital Signs: Last Vital Signs Temp 98.0 F 09/12/24 10:05 Pulse 81 09/12/24 10:05 BP 130/80 09/12/24 10:05 Pulse Ox 99 09/12/24 10:05 Oxygen Delivery Method Room Air 09/12/24 10:05 BMI result Body Mass Index 29.6 Assessment & Plan Assessment & Plan (1) Acute sinusitis: Code(s): J01.90 - Acute sinusitis, unspecified Qualifiers: Sinusitis location: frontal Recurrence: non-recurrent Qualified Code(s): J01.10 - Acute frontal sinusitis, unspecified Plan: Plan - Prescribe Augmentin for coverage of potential bacterial sinusitis, with instructions for a 7-day course, stopping after 5 days if symptoms improve. - Continue Flonase as a nasal spray for symptom relief. - Recommend daily use of an antihistamine such as Xyzal for allergic rhinitis symptoms. - Instruct patient to monitor symptoms and return if no improvement. Patient was informed and verbally consented to the use of an ambient scribe for clinic note documentation during this visit Medications: New amoxicillin-pot clavulanate 875-125 mg 1 tab PO Q12H 14 tabs 0RF Coding Level of Care Code Est Pt Level 3 (36926) Diagnoses Acute non-recurrent frontal sinusitis J01.10 Sinusitis location: frontal Recurrence: non-recurrent
== END 2024-09-12 11:05 | disposition home or self-care (01) ==
PROVIDERS: PCP Nurse Practitioner Family; Visit Provider Physician Assistant
DX: J01.10 Acute frontal sinusitis, unspecified (principal)

== ENCOUNTER 2024-09-24 09:12 | Outpatient (AMB) | payer OTHER, SELFPAY ==
--- NOTE | 2024-09-24 09:19 | MHC.PC.OV ---
Vital Signs 09/24/24 09:20 Height 6 ft Weight 222 lb BMI 30.1 BP 122/80 Blood Pressure Location Rt brachial Position Sitting Pulse 85 Pulse Source Pulse Oximeter Pulse Oximetry (%) 98 Intake Visit Reasons: Annual PE Allergies prednisone Allergy (Severe, Verified 09/24/24 09:51) severe headaches Medication List - Last Reconciled 09/24/24 by Michael Rich, [facility]- atorvastatin 80 mg PO DAILY citalopram 10 mg (5 mL) PO DAILY dextroamphetamine-amphetamine 10 mg ER 1 cap PO DAILY famotidine 40 mg PO DAILY 90 days fluticasone propionate 50 mcg/actuation (Allergy Relief (fluticasone)) 1 spray intranasal DAILY ibuprofen 800 mg PO Q8H levetiracetam 750 mg PO BID lisinopril 10 mg PO DAILY lorazepam 1 mg PO BID PRN Tobacco use date assessed: 01/25/24 Fall risk assessment: No Falls in past year Last assessed Fall Risk: 09/24/24 Dental Screening Dental Screen Date: 01/25/24 HPI Annual PE HPI Details History of Present Illness The patient is a 69-year-old male presenting for a routine physical examination. colon screen is up to date. He denies experiencing chest pain, shortness of breath, constipation, diarrhea, or any changes in stool. There are no reports of psychiatric concerns such as suicidal ideation or homicidal thoughts. He has been under regular follow-up with a urologist. There is no noted presence of edema, and his skin condition includes excessive dryness and scale formation. Health Maintenance - Administration of Prevnar 20 vaccine is planned for today. - Administration of the influenza vaccine is scheduled for today. Social History Review of Systems - Cardiovascular: Denies chest pain. - Respiratory: Denies shortness of breath. - Psychiatric: Denies suicidal ideation or homicidal thoughts. - Gastrointestinal: Denies constipation, diarrhea, and blood in stool. Physical Exam General: Cooperative, healthy appearing, comfortable, no acute distress and well developed Orientation: Patient oriented x3 Limitations: No limitations Head: Normal to inspection Ears: Hearing grossly normal bilaterally Nose: Normal external nose present Face and sinus: Normal facial exam Eyes: Appearance normal, both eyes and all related structures Neck: Normal visual inspection and Yes full ROM Respiratory: Normal respiratory effort and able to speak in complete sentences. Clear to auscultation bilaterally Cardiovascular: Regular rate and rhythm. Normal S1 and S2 GI: Normal to inspection. Soft to palpation and nontender Skin: Excessively dry, scaly skin throughout Neuro: Patient oriented x3 Extremities: Normal to inspection Results Plan - Administer Prevnar 20 and influenza vaccines as per health maintenance schedule. Patient was informed and verbally consented to the use of an ambient scribe for clinic note documentation during this visit. Discussion Notes I discussed the plan to provide the patient with Prevnar 20 and influenza vaccinations as part of his health maintenance regimen. We reviewed the benefits of these vaccines in preventing pneumococcal and seasonal influenza infections. No specific risks or alternative plans were indicated, and consent is implied with the planned administration of these immunizations. Patient Instructions - Receive the Prevnar 20 vaccine today. - Receive the flu vaccine today. [facility] Medical History (Updated 09/24/24 @ 09:53 by Michael Rich, [facility]) Physical exam Acute sinusitis Nocturia Viral respiratory illness Dehydration Fatigue Cyst of skin Acute neck sprain Screening PSA (prostate specific antigen) Constipation Vasovagal syncope Sinus headache Stress Screening for colon cancer Insomnia Excessive daytime sleepiness Pain of hand and fingers Swelling of right hand Fatigue after vaccination Screening PSA (prostate specific antigen) Physical exam Medication refill Cellulitis Splinter Ichthyosis Family history of colon cancer Depression Seizures Surgical History Hx of colonoscopy History of hernia repair Hx of cholecystectomy Family History Father Colon cancer Mother Unknown family medical history Dementia associated with alcoholism Brother Cirrhosis Substance use disorder Son No problems noted. Son No problems noted. Social History Housing: House Are you a primary family day carer to a significant other at home: No Do you presently have visiting nurse or other home services: No Alcohol intake: never Patient Tobacco Use Status: Never used Tobacco e-Cigarette/Vaping Use: Never Used Second Hand Smoke Exposure: No Substance Use Type: Marijuana service: No Current occupational status: employed and retired Cognitive needs: No Hearing needs: No Vision needs: Yes Questionnaire PHQ-9 Over the last 2 weeks, how often have you been bothered by any of the following problems? 1. Little interest or pleasure in doing things: not at all 2. Feeling down, depressed, or hopeless: not at all 3. Trouble falling or staying asleep, or sleeping too much: several days 4. Feeling tired or having little energy: several days 5. Poor appetite or overeating: not at all 6. Feeling bad about yourself - or that you are a failure or have let yourself or your family down: not at all 7. Trouble concentrating on things, such as reading the newspaper or watching television: not at all 8. Moving or speaking so slowly that other people could have noticed. Or the opposite - being so fidgety or restless that you have been moving around a lot more than usual: not at all 9. Thoughts that you would be better off or of hurting yourself in some way: not at all Total score: 2 Depression Screening Interpretation: Negative Depression Screening Done: Yes 32870 - PHQ-9 Billing: Yes Source: Developed by Drs. Victor Manuel Coon, Marilia Ramirez, Sebastian Lucio and colleagues, with an educational marjan from [employer]. Thrive Questionnaire Date Thrive assessed: 09/24/24 I am a: Patient What is your living situation today?: I have a steady place to live Within the past 12 months, did the food you bought not last and you didn't have the money to get more?: Often true Within the past 12 months, did you worry whether your food would run out before you got money to buy more?: Never true Do you have trouble paying for medicines?: No Do you have trouble getting transportation to medical appointments?: No Do you have trouble paying your heating and electricity bill?: No Do you have trouble taking care of your child, family member or friend?: No Do you have trouble with day-to-day activities such as bathing, preparing meals, shopping, managing finances, etc.?: No Are you currently unemployed and looking for a job?: No Are you interested in more education?: No Please select the resources that you would like help with: None THRIVE Score: 1 AUDIT C Alcohol Use Questionnaire (AUDIT-C) 1. How often do you have a drink containing alcohol?: Never 3. How often do you have six or more drinks on one occasion?: Never Total Score: 0 Score Reviewed/Action Taken: Yes TUYET-7 AMB Questionnaire TUYET-7 Date TUYET - 7 assessed: 09/24/24 Feeling nervous, anxious, or on edge: 1 = Several days Not being able to stop or control worryin = Several days Worrying too much about different things: 1 = Several days Trouble relaxin = Not at all Being so restless that it is hard to sit still: 0 = Not at all Becoming easily annoyed or irritable: 0 = Not at all Feeling afraid as if something awful might happen: 0 = Not at all Total TUYET-7 score (0-4 normal; 5-9 mild; 10-14 moderate; 15-21 severe): 3 Source: Developed by Drs. Victor Manuel Coon, Marilia Ramirez, Sebastian Lucio and colleagues, with an educational marjan from [employer]. TUYET-7 Assessment Billing TUYET-7 Assessment Tool: TUYET-7 Assessment 02825 Physical exam (Primary Care) Vital Signs: Last Vital Signs Pulse 85 09/24/24 09:20 BP 122/80 09/24/24 09:20 Pulse Ox 98 09/24/24 09:20 BMI result Body Mass Index 30.1 Tobacco/Smoking Status: Tobacco use Status Tobacco use date assessed 01/25/24 09/24/24 09:21 Patient Tobacco Use Status Never used Tobacco 09/24/24 09:21 e-Cigarette/Vaping Use Never Used 09/24/24 09:21 PHQ-9: PHQ-9 Score PHQ-9: Total score 2 09/24/24 09:56 Depression Screening Interpretation: Negative Thrive Assessment: Date of Thrive Assessment Date Thrive assessed 09/24/24 09/24/24 09:21 Immunizations pneumoc 20-meeta conj-dip cr(PF) 0.5 mL IM syringe Performing Provider: SELENE Owens Performing Location: [facility] Administered by: Morro Merritt CMA on 09/24/24 10:17 Dose Route Admin Location Dispensed Lot Number Expiration Date [facility] [employer] 0.5 mL IM Right Deltoid 0.5 mL [id number] 01/13/26 4742-2450-25 [employer]/PFIZER VIS Given Date VIS Provided VIS Publication Date 09/24/24 Single Vaccine 21 Eligibility Eligibility Date Funding Source Not [facility] Eligible 09/24/24 Private Coding Level of Care Code Est Pt Prev Care >65y(21761) Diagnoses Physical exam Z00.00 Additional Codes TUYET-7 Assessment Billing - TUYET-7 Assessment Tool: TUYET-7 Assessment 65031 ([id number]) PHQ-9 - 03623 - PHQ-9 Billing: Yes ([id number]) Assessment & Plan Assessment & Plan (1) Physical exam: Code(s): Z00.00 - Encounter for general adult medical examination without abnormal findings Category: Medical Plan . Orders: Orders Complete Blood Count Auto Diff Today Z00.00 - Encounter for general adult medical examination without abnormal findings UA CC w/rflx Micro + Cult Today Z00.00 - Encounter for general adult medical examination without abnormal findings Comprehensive [place]. Panel Fast Today Z00.00 - Encounter for general adult medical examination without abnormal findings TSH reflex Free T4 Today Z00.00 - Encounter for general adult medical examination without abnormal findings Lipid Panel Today Z00.00 - Encounter for general adult medical examination without abnormal findings
[2024-09-24 09:20] VITALS: BP 122/80; PULSE 85; O2SAT 98; BMI 30.1
== END 2024-09-24 10:21 | disposition home or self-care (01) ==
PROVIDERS: PCP Nurse Practitioner Family; Visit Provider Nurse Practitioner Family
DX: Z23 Encounter for immunization (principal); Z00.00 Encounter for general adult medical examination without abnormal findings

== ENCOUNTER → 2024-09-24 09:12 | Outpatient (BNVA) | payer OTHER, SELFPAY | PROVIDERS: PCP Nurse Practitioner Family; Visit Provider Nurse Practitioner Family | DX: Z00.00 Encounter for general adult medical examination without abnormal findings (principal); Z23 Encounter for immunization | CPT/HCPCS: 90471; 90677; 96127 ==

== ENCOUNTER 2024-11-09 11:07 | Outpatient (REF) | payer OTHER, SELFPAY ==
--- OUTSIDE RECORDS SUMMARY | 2024-11-09 12:02 | XMS_ITS | Clinical Summary ---
Author Organization [address] [facility] Address [address] [place] [address] Phone Care Team Providers Care Naval Architect Specialist Name Role Phone Michael Rich NP Primary Care Provider Allergies No known active allergies Medications atorvastatin (LIPITOR) 40 mg tablet Take 1 tablet (40 mg total) by mouth. Active citalopram (CeleXA) 10 mg/5 mL suspension Take 5 mL (10 mg total) by mouth. Active LORazepam (ATIVAN) 0.5 mg tablet Take 1 tablet (0.5 mg total) by mouth. Active omeprazole (PriLOSEC) [address] capsule Take 1 capsule (20 mg total) by mouth. Active quinapriL (ACCUPRIL) 20 mg tablet Take 1 tablet (20 mg total) by mouth. Active Immunizations Name Administration Dates Next Due Influenza Quadravalent, MDCK , 0.5ml, preservative free (Flucelvax) 6mo and older 06/24/2020,07/05/2019,06/01/2017 Influenza Quadravalent, MDCK , 0.5ml, with preservative (Flucelvax) 6mo and older 06/23/2018 Pneumococcal polysaccharide 23 valent (Pneumovax 23) 2yo and older 08/24/2021 Tdap Tetanus diptheria acell ular pertussis (Boostrix; Adacel) 7yo and older 06/05/2018 Zoster recombinant (Shingrix ) 19yo and older 12/08/2020,08/04/2020 Surgical History Surgery Date Site/Laterality Comments BACK SURGERY PROCEDURE: HISTORICAL BACK SURGERY; COMMENT: age 28 Medical History Medical History Date Comments Anxiety and depression DX:Anxiet y and depression HTN (hypertension) DX:HTN (hyper tension) HLD (hyperlipidemia) DX:HLD (hyp erlipidemia) Seizure disorder (CMS/HCC) DX:Se izure disorder (HCC) GERD (gastroesophageal reflux disease) DX:GERD (gastroesophageal reflux disease) Obesity DX:Obesity Social History Tobacco Use Types Packs/Day Years Used Date Smoking Tobacco: Never Smokeless Tobacco: Never Alcohol Use Standard Drinks/Week Comments Never 0 (1 standard drink = 0.6 oz pur e alcohol) Sex and Gender Information Value Date Recorded Sex Assigned at Not on file Legal Sex Male 8:58 PM EST Gender Identity Not on file Sexual Orientation Not on file Obstetrics History Last Filed Vital Signs Vital Sign Reading Time Taken Comments Blood Pressure - - Pulse - - Temperature - - Respiratory Rate - - Oxygen Saturation - - Inhaled Oxygen Concentration - - Weight 98.9 kg (218 lb) 12/31/2022 1:21 PM EDT Height 182.9 cm (6') 12/31/2022 1:21 PM EDT Body Mass Index 29.57 12/31/2022 1:21 PM EDT Plan of Treatment Health Maintenance Due Date Last Done Comments Pneumococcal Vaccine: 50+ Years (2 of 2 - PCV) 08/24/2022 08/24/2021 Abdominal Aortic Aneurysm (AAA) Screen 08/28/2022 Cholesterol Screening (Lipid Panel) 08/28/2022 Colorectal Cancer Screening: Colonoscopy 08/28/2022 Depression Screening 08/28/2022 Falls Risk Assessment 08/28/2022 Hepatitis C Screening 08/28/2022 Social Influencers of Health Screening 08/28/2022 COVID-19 Vaccine ( season) 2024 09/03/2022, 07/13/2021, 06/22/2021 Influenza Vaccine (#1) 2024 , 06/24/2020, 07/05/2019, Additional history exists DTaP,Tdap,and Td Vaccines (2 - Td or Tdap) 06/05/2028 06/05/2018 RSV Immunization Patients 60+ Years Old (1 - 1-dose 75+ series) 2031 Zoster Vaccines Completed 12/08/2020, 08/04/2020 HIB Vaccines Aged Out No longer eligi ble based on patient's age to complete this topic HPV Vaccines Aged Out No longer eligi ble based on patient's age to complete this topic Hepatitis A Vaccines Aged Out No long er eligible based on patient's age to complete this topic Hepatitis B Vaccines Aged Out No long er eligible based on patient's age to complete this topic IPV Vaccines Aged Out No longer eligi ble based on patient's age to complete this topic MMR Vaccines Aged Out No longer eligi ble based on patient's age to complete this topic Meningococcal ACWY Vaccine Aged Out N o longer eligible based on patient's age to complete this topic Meningococcal B Vacine Aged Out No lo nger eligible based on patient's age to complete this topic RSV Immunization Patients Under 20 months Aged Out No longer eligible based on patient's age to complete this topic Varicella Vaccines Aged Out No longer eligible based on patient's age to complete this topic Insurance [facility] Care Teams Naval Architect Specialist Relationship Specialty Start Date End Date Michael Rich NP [address] [place], [place] PCP - General 03/15/22
[2024-11-09 13:12] LABS: MANUAL DIFF FLAG NO
[2024-11-09 13:20] LABS: Basophils Absolute Auto 0.1 X10*3/uL (0.0-0.2); Basophils Percent Auto 0.7 % (0-2); Eosinophils Absolute Auto 0.1 X10*3/uL (0.0-0.4); Eosinophils Percent Auto 1.4 % (0-4); Hematocrit 46.6 % (42.0-52.0); Hemoglobin 15.4 g/dl (14.0-18.0); Imm Gran Abs Auto 0.01 X10*3/uL (0.00-0.03); Imm Gran Pct Auto 0.1 % (0.0-0.4); Lymphocytes Absolute Auto 1.5 X10*3/uL (1.2-4.9); Lymphocytes Percent Auto 21.6 % (20-40); Mean Corpuscular Hemoglobin 30.9 pg (27.0-33.0); Mean Corpuscular Volume 93.6 fL (80.0-98.0); Mean Platelet Volume 12.1 fL (9.4-12.4); Monocytes Absolute Auto 0.5 X10*3/uL (0.1-1.2); Monocytes Percent Auto 7.3 % (2-11); Neutrophils Absolute Auto 4.9 x10*3/uL (2.0-8.3); Neutrophils Percent Auto 68.9 % (45-73); Platelet Count 144 X10*3/uL (160-400); Red Blood Count 4.98 X10*6/uL (4.60-5.80); Red Cell Distribution Width 12.7 % (11.0-16.0); White Blood Count 7.1 X10*3/uL (4.8-10.8)
[2024-11-09 13:40] LABS: Color Urine Dark Yellow; Glucose Urine UA Negative (Negative); Leukocyte Esterase Urine Negative (Negative); Nitrite Urine Negative (Negative); PH 5.5 (5.0-9.0); Specific Gravity - Urine >= 1.030 (1.005-1.025); Urine Blood Negative (Negative); Urine Ketones Trace mg/dL (Negative); Urine Protein Trace mg/dL (Neg-Trace)
[2024-11-09 13:43] LABS: Appearance Urine Cloudy
[2024-11-09 14:00] LABS: Alanine Aminotransferase 44 U/L (0-40); Albumin Level 4.4 g/dL (3.5-5.0); Alkaline Phosphatase 108 U/L (39-117); Anion Gap 12 (12-20); Aspartate Amino Transferase 35 U/L (5-37); Bilirubin Total 0.8 mg/dL (0.0-1.0); Blood Urea Nitrogen 15 mg/dL (9-16); Calcium 9.2 mg/dL (8.4-10.2); Carbon Dioxide 25 mmol/L (22-29); Chloride 104 mmol/L (96-108); Cholesterol 135 mg/dL (<200); Estimated Glomerular Filt Rate > 60; Glucose Fasting 103 mg/dL (60-99); HDL Cholesterol 57 mg/dL (>40); LDL Cholesterol Calculated 67 mg/dL (<100); Potassium 4.9 mmol/L (3.3-5.1); Sodium 136 mmol/L (135-145); Total Protein 7.8 g/dL (6.5-8.0); Triglycerides 58 mg/dL (<150)
[2024-11-09 14:01] LABS: TSH reflex Free T4 2.02 uIU/mL (0.32-4.0)
== END 2024-11-09 11:08 | disposition home or self-care (01) ==
LOC: HO.HMGCLDS 11:07
PROVIDERS: PCP Nurse Practitioner Family; Visit Provider Nurse Practitioner Family
DX: Z00.00 Encounter for general adult medical examination without abnormal findings (principal); Z13.6 Encounter for screening for cardiovascular disorders
CPT/HCPCS: 36415; 80053; 80061; 81003; 84443; 85025

== ENCOUNTER 2025-01-03 10:33 | Outpatient (AMB) | payer OTHER, SELFPAY ==
[2025-01-03 10:37] VITALS: BP 130/80; PULSE 73; TEMP 36.6; O2SAT 98; BMI 30.1
--- NOTE | 2025-01-03 10:37 | MHC.OFFWIV ---
Intake Vital Signs 01/03/25 10:37 Height 6 ft Weight 222 lb BMI 30.1 BP 130/80 Blood Pressure Location Lt brachial Position Sitting Pulse 73 Pulse Source Pulse Oximeter Temp 97.8 F Temp Source Oral Pulse Oximetry (%) 98 Intake Visit Reasons: EP RT elbow injury (no WC) Patient Tobacco Use Status: Never used Tobacco Allergies prednisone Allergy (Severe, Verified 01/03/25 10:38) severe headaches Do you need a note to return to daycare/school/sports/work: No HPI HPI Comments History of Present Illness Details History of Present Illness - The patient is a 69-year-old male presenting with evaluation and management of right elbow contusion one week ago. - patient sustained a right elbow injury by striking it against a door frame, resulting in sharp pain and tenderness. - He reports accompanying tingling in the fingers localized to the area of ring and pinky fingers - Symptoms have worsened with activity but have shown improvement upon resting and applying cold therapy. - The patient has not achieved significant relief with prior ibuprofen and tylenol use and confirms absence of blood thinner usage. Physical Exam General: Cooperative, healthy appearing, comfortable, no acute distress and well developed Orientation: Patient oriented x3 Limitations: No limitations Head: Normal to inspection Ears: Hearing grossly normal bilaterally Nose: Normal External nose present Face and sinus: Normal facial exam Eyes: Appearance normal, both eyes and all related structures Neck: Normal visual inspection and Yes full ROM Respiratory: Normal respiratory effort and able to speak in complete sentences. Skin: No rashes or lesions noted Neuro: Patient oriented x3 Extremities: TTP lateral epicondyle, full ROM, no ecchymosis, warmth or erythema. [facility] Medical History (Updated 01/03/25 @ 10:56 by Eloisa Szymanski PA-C) Physical exam Acute sinusitis Nocturia Viral respiratory illness Dehydration Fatigue Cyst of skin Acute neck sprain Screening PSA (prostate specific antigen) Constipation Vasovagal syncope Sinus headache Stress Screening for colon cancer Insomnia Excessive daytime sleepiness Pain of hand and fingers Swelling of right hand Fatigue after vaccination Screening PSA (prostate specific antigen) Physical exam Medication refill Cellulitis Splinter Ichthyosis Family history of colon cancer Depression Seizures Surgical History Hx of colonoscopy History of hernia repair Hx of cholecystectomy Family History Father Colon cancer Mother Unknown family medical history Dementia associated with alcoholism Brother Cirrhosis Substance use disorder Son No problems noted. Son No problems noted. Social History Housing: House Are you a primary client care representative to a significant other at home: No Do you presently have visiting nurse or other home services: No Alcohol intake: never Patient Tobacco Use Status: Never used Tobacco e-Cigarette/Vaping Use: Never Used Second Hand Smoke Exposure: No Substance Use Type: Marijuana service: No Current occupational status: employed and retired Cognitive needs: No Hearing needs: No Vision needs: Yes Review of Systems Const All systems reviewed & are unremarkable except as noted in HPI and below Physical Exam Vital Signs: Last Vital Signs Temp 97.8 F 01/03/25 10:37 Pulse 73 01/03/25 10:37 BP 130/80 01/03/25 10:37 Pulse Ox 98 01/03/25 10:37 BMI result Body Mass Index 30.1 Assessment & Plan Assessment & Plan (1) Lateral epicondylitis, right elbow: Code(s): M77.11 - Lateral epicondylitis, right elbow Plan: MARCY wrapped elbow for pt. The patient?s elbow injury, likely leading to localized ulnar nerve inflammation, will be managed with diclofenac every 12 hours to address inflammation, coupled with continued ice therapy. Careful consideration ruled out the use of concurrent ibuprofen to avoid excessive NSAID intake. Acetaminophen can accompany this regimen for additional pain relief if needed. If there is a notable improvement within ATC use after two to three days, the regimen should be reduced to an as-needed basis. Subsequent steps will be determined by the response to the initial management plan. The patient has been informed about the possible side effects of NSAID use and the anticipated symptom alleviation with the chosen therapeutic approach. Further assessment or modifications to the treatment plan will be considered based on clinical response. Patient was informed and verbally consented to the use of an ambient scribe for clinic note documentation during this visit. Medications: New diclofenac sodium 50 mg PO Q12H PRN 20 tabs 0RF pain Coding Level of Care Code Est Pt Level 3 (55328) Diagnoses Lateral epicondylitis, right elbow M77.11
--- OUTSIDE RECORDS SUMMARY | 2025-01-03 12:29 | XMS_ITS | Clinical Summary ---
Author Organization [address] [facility] Address [address] [place] [address] Phone Care Team Providers Care Color Television Console Monitor Name Role Phone Michael Rich NP Primary [...] HLD (hyperlipidemia) DX:HLD (hyp erlipidemia) Seizure disorder (CMS/HCC V2 4, CMS/HCC V28) DX:Seizure disorder (HCC) GERD (gastroesophageal reflux disease) DX:GERD [...] season) 2024 09/03/2022, 07/13/2021, 06/22/2021 Influenza Vaccine (Season Ended) 2025 09/03/2022, 06/24/2020, 07/05/2019, Additional history exists DTaP,Tdap,and Td Vaccines (2 - Td or Tdap) 06/05/2028 06/05/2018 RSV Immunization Adult Patients (1 - 1-dose 75+ series) 2031 Zoster [...] age to complete this topic Meningococcal B Vaccine Aged Out No l onger eligible based on patient's age to complete this topic RSV Immunization Patients Under 20 months Aged Out No longer eligible based on patient's age to complete this topic Varicella Vaccines Aged Out No longer eligible based on patient's age to complete this topic Insurance [facility] Care Teams Color Television Console Monitor Relationship Specialty Start Date End Date Michael Rich NP [address] [place], [place] PCP - General 03/15/22
== END 2025-01-03 11:14 | disposition home or self-care (01) ==
PROVIDERS: PCP Nurse Practitioner Family; Visit Provider Physician Assistant
DX: M77.11 Lateral epicondylitis, right elbow (principal)

== ENCOUNTER → 2025-01-03 10:33 | Outpatient (BNVA) | payer OTHER, SELFPAY | PROVIDERS: PCP Nurse Practitioner Family; Visit Provider Physician Assistant ==

== ENCOUNTER 2025-01-21 11:09 | Outpatient (AMB) | payer OTHER, SELFPAY ==
[2025-01-21 12:57] VITALS: BP 120/84; PULSE 87; O2SAT 97
--- NOTE | 2025-01-21 12:57 | MHC.OFFWIV ---
Intake Vital Signs 01/21/25 12:57 Weight 226 lb BP 120/84 Blood Pressure Location Lt brachial Position Sitting Pulse 87 Pulse Source Pulse Oximeter Pulse Oximetry (%) 97 Oxygen Delivery Method Room Air Intake Visit Reasons: EP RT elbow pain Intake Note: Patient here for for right elbow pain that has been present for a couple of weeks now and had too many side effects from diclofenac that was given to him here. Patient Tobacco Use Status: Never used Tobacco Allergies prednisone Allergy (Severe, Verified 01/21/25 13:01) severe headaches Do you need a note to return to daycare/school/sports/work: No HPI HPI Comments History of Present Illness Details History of Present Illness - The patient is a 69-year-old male presenting with continue right elbow pain. - patient was seen at this walk-in last week and prescribed diclofenac, the prescribed medication led to side effects, including constipation, daytime somnolence, and nausea, prompting discontinuation. Patient states that the medication worked well, however the side effects were not tolerable so he had to stop taking it. - Post-discontinuation, the patient reverted to ibuprofen and acetaminophen, but experienced right hand numbness at night. - The patient is left-handed, reducing the burden on the affected elbow by primarily using his dominant hand, which may influence the severity of the reported sensation in his hand. Physical Exam General: Cooperative, healthy appearing, comfortable, no acute distress and well developed Orientation: Patient oriented x3 Limitations: No limitations Head: Normal to inspection Ears: Hearing grossly normal bilaterally Nose: Normal External nose present Face and sinus: Normal facial exam Eyes: Appearance normal, both eyes and all related structures Neck: Normal visual inspection and Yes full ROM Respiratory: Normal respiratory effort and able to speak in complete sentences. Skin: No rashes or lesions noted Neuro: Patient oriented x3 Extremities: Tenderness to palpation in the lateral epicondyle, slight swelling from the elbow to the fingertips of the right arm, full range of motion, no warmth. [facility] Medical History (Updated 01/03/25 @ 10:56 by Eloisa Szymanski PA-C) Physical exam Acute sinusitis Nocturia Viral respiratory illness Dehydration Fatigue Cyst of skin Acute neck sprain Screening PSA (prostate specific antigen) Constipation Vasovagal syncope Sinus headache Stress Screening for colon cancer Insomnia Excessive daytime sleepiness Pain of hand and fingers Swelling of right hand Fatigue after vaccination Screening PSA (prostate specific antigen) Physical exam Medication refill Cellulitis Splinter Ichthyosis Family history of colon cancer Depression Seizures Surgical History Hx of colonoscopy History of hernia repair Hx of cholecystectomy Family History Father Colon cancer Mother Unknown family medical history Dementia associated with alcoholism Brother Cirrhosis Substance use disorder Son No problems noted. Son No problems noted. Social History Housing: House Are you a primary career development director to a significant other at home: No Do you presently have visiting nurse or other home services: No Alcohol intake: never Patient Tobacco Use Status: Never used Tobacco e-Cigarette/Vaping Use: Never Used Second Hand Smoke Exposure: No Substance Use Type: Marijuana service: No Current occupational status: employed and retired Cognitive needs: No Hearing needs: No Vision needs: Yes Review of Systems Const All systems reviewed & are unremarkable except as noted in HPI and below Physical Exam Vital Signs: Last Vital Signs Pulse 87 01/21/25 12:57 BP 120/84 01/21/25 12:57 Pulse Ox 97 01/21/25 12:57 Oxygen Delivery Method Room Air 01/21/25 12:57 Assessment & Plan Assessment & Plan (1) Lateral epicondylitis, right elbow: Code(s): M77.11 - Lateral epicondylitis, right elbow Plan: Management of the elbow pain involved discontinuing the initial medication due to intolerable side effects. We will put him on a longer prednisone taper to reduce the inflammation. Recommended he not take any Advil or ibuprofen while taking the steroid, he can add Tylenol. He should also ice the elbow and continue to wear the Howie wrap and rest it. Patient should return to the clinic or follow up with his PCP if no improvement in his symptoms over the next few weeks. Note: My laptop lost power while I was evaluating the patient so I was not able to see that he has severe headaches when taking prednisone. I had my MA call him to let him know he should try taking the medication because it is not technically an allergy. If he does develop a headache, he should stop the medication and call us to let us know so we can try to find a different alternative although he tried diclofenac with intolerable side effects as well. Patient was informed and verbally consented to the use of an ambient scribe for clinic note documentation during this visit. Medications: New prednisone take 4 tablets on days 1-2, take 3 tablets on days 3-4, take 2 tablets on days 5-6, take 1 tablet on days 7-8. 10 mg PO DIRECTED 20 tabs 0RF Coding Level of Care Code Est Pt Level 3 (99689) Diagnoses Lateral epicondylitis, right elbow M77.11
--- OUTSIDE RECORDS SUMMARY | 2025-01-21 13:25 | XMS_ITS | Clinical Summary ---
Author Organization [address] [facility] Address [address] [place] [address] Phone Care Team Providers Care Salesperson Shoes Name Role Phone Michael Rich NP Primary [...] patient's age to complete this topic Insurance [facility] Care Teams Salesperson Shoes Relationship Specialty Start Date End Date Michael Rich NP [address] [place], [place] PCP - General 03/15/22
== END 2025-01-21 13:29 | disposition home or self-care (01) ==
PROVIDERS: PCP Nurse Practitioner Family; Visit Provider Physician Assistant
DX: M77.11 Lateral epicondylitis, right elbow (principal)

== ENCOUNTER → 2025-01-21 11:09 | Outpatient (BNVA) | payer OTHER, SELFPAY | PROVIDERS: PCP Nurse Practitioner Family; Visit Provider Physician Assistant ==

== ENCOUNTER 2025-03-25 09:43 | Outpatient (AMB) | payer OTHER, SELFPAY ==
[2025-03-25 09:45] VITALS: BP 120/80; PULSE 85; TEMP 36.6; O2SAT 96; BMI 29.6
--- NOTE | 2025-03-25 09:45 | A.OFFPC_ITS ---
Vital Signs 03/25/25 09:45 Height 6 ft Weight 218 lb BMI 29.6 BP 120/80 Blood Pressure Location Lt brachial Position Sitting Pulse 85 Pulse Source Pulse Oximeter Temp 97.8 F Temp Source Oral Pulse Oximetry (%) 96 Oxygen Delivery Method Room Air Intake Visit Reasons: 6m follow up [employer] Consultant Required: No Accompanied by: Self / Same As Patient Allergies prednisone Allergy (Severe, Verified 03/25/25 10:23) severe headaches Medication List - Last Reconciled 03/25/25 by JAMSHID Owens- atorvastatin 80 mg PO DAILY bromfenac 0.09% bria ophthalmic (eye) citalopram 10 mg (5 mL) PO DAILY dextroamphetamine-amphetamine 10 mg ER 1 cap PO DAILY famotidine 40 mg PO DAILY 90 days ibuprofen 800 mg PO Q8H levetiracetam 750 mg PO BID lisinopril 10 mg PO DAILY lorazepam 1 mg PO BID PRN tamsulosin (Flomax) 0.4 mg PO DAILY Tobacco use date assessed: 03/25/25 Fall risk assessment: No Falls in past year Last assessed Fall Risk: 03/25/25 Dental Screening Dental Screen Date: 03/25/25 Did you have a dental visit in the last 12 months?: Yes Did you have a dental problem in the last 6 months where you did not have access to dental care?: No Was dental information given to patient?: Patient has dentist HPI 6m follow up HPI Details Chief Complaint The patient presents for follow-up regarding dyslipidemia management. History of Present Illness The patient is a 69-year-old male presenting with follow-up for dyslipidemia. He has been actively managing his condition by watching his diet and increasing his exercise. The patient also has a history of seizure disorder and is currently under the care of a neurologist. He is currently on Keppra, having previously been on Dilantin and Depakote. He reports no recent seizures and remains active, working on his son's house. Social History - Exercise: The patient has increased hi s physical activity. - Activity level: Very active, working o n his son's house. Health Maintenance - Colonoscopy: Up to date - Lifestyle: Watching diet and increasin g exercise for dyslipidemia management Review of Systems - Neurological: Denies seizures - Cardiovascular: Denies chest pain - Respiratory: Denies shortness of breat h Physical Exam General: Cooperative, healthy appearing, comfortable, no acute distress and well developed Orientation: Patient oriented x3 Limitations: No limitations Head: Normal to inspection Ears: Hearing grossly normal bilaterally Nose: Normal external nose present Face and sinus: Normal facial exam Eyes: Appearance normal, both eyes and all related structures Neck: Normal visual inspection and Yes full ROM Respiratory: Normal respiratory effort and able to speak in complete sentences. Clear to auscultation bilaterally Cardiovascular: Regular rate and rhythm. Normal S1 and S2 GI: Normal to inspection. Soft to palpation and nontender Neuro: Patient oriented x3. Patient sees a neurologist for seizure activity and is now on Keppra. Extremities: Normal to inspection Results Plan The patient will continue to manage dyslipidemia through dietary modifications and increased physical activity. He is scheduled to have laboratory tests in the near future to monitor his condition. For his seizure disorder, he will continue on Keppra and maintain regular follow-ups with his neurologist. No recent seizures have been reported, indicating effective management with current medication. Discussion Notes I discussed with the patient the importance of continuing his current lifestyle modifications to manage dyslipidemia effectively. We also reviewed his seizure disorder management, emphasizing adherence to Keppra and regular neurologist visits. The patient is aware of the need for upcoming laboratory tests and will return for a follow-up in six months. Patient Instructions - Continue with dietary modifications an d increased exercise to manage dyslipidemia. - Schedule and complete laboratory tests as discussed. - Continue taking Keppra as prescribed a nd follow up with your neurologist. - Return for a follow-up visit in six mo [facility]. [facility] Medical History Trigger finger, left Physical exam Acute sinusitis Nocturia Viral respiratory illness Dehydration Fatigue Cyst of skin Acute neck sprain Screening PSA (prostate specific antigen) Constipation Vasovagal syncope Sinus headache Stress Screening for colon cancer Insomnia Excessive daytime sleepiness Pain of hand and fingers Swelling of right hand Fatigue after vaccination Screening PSA (prostate specific antigen) Physical exam Medication refill Cellulitis Splinter Ichthyosis Family history of colon cancer Depression Seizures Surgical History Hx of colonoscopy History of hernia repair Hx of cholecystectomy Family History Father Colon cancer Mother Unknown family medical history Dementia associated with alcoholism Brother Cirrhosis Substance use disorder Son No problems noted. Son No problems noted. Social History Housing: House Are you a primary progressive care nurse to a significant other at home: No Do you presently have visiting nurse or other home services: No Alcohol intake: never Patient Tobacco Use Status: Never used Tobacco e-Cigarette/Vaping Use: Never Used Second Hand Smoke Exposure: No Substance Use Type: Marijuana service: No Current occupational status: employed and retired Cognitive needs: No Hearing needs: No Vision needs: Yes Questionnaire PHQ-9 Over the last 2 weeks, how often have you been bothered by any of the following problems? 1. Little interest or pleasure in doing things: not at all 2. Feeling down, depressed, or hopeless: not at all 3. Trouble falling or staying asleep, or sleeping too much: several days 4. Feeling tired or having little energy: several days 5. Poor appetite or overeating: not at all 6. Feeling bad about yourself - or that you are a failure or have let yourself or your family down: not at all 7. Trouble concentrating on things, such as reading the newspaper or watching television: not at all 8. Moving or speaking so slowly that other people could have noticed. Or the opposite - being so fidgety or restless that you have been moving around a lot more than usual: not at all 9. Thoughts that you would be better off or of hurting yourself in some way: not at all Total score: 2 Depression Screening Interpretation: Negative Depression Screening Done: Yes 55723 - PHQ-9 Billing: Yes Source: Developed by Drs. Victor Manuel Coon, Marilia Ramirez, Sebastian Lucio and colleagues, with an educational marjan from [employer] To Get Approved For. Thrive Questionnaire Date Thrive assessed: 03/25/25 I am a: Patient What is your living situation today?: I have a steady place to live Within the past 12 months, did the food you bought not last and you didn't have the money to get more?: Often true Within the past 12 months, did you worry whether your food would run out before you got money to buy more?: Never true Do you have trouble paying for medicines?: No Do you have trouble getting transportation to medical appointments?: No Do you have trouble paying your heating and electricity bill?: No Do you have trouble taking care of your child, family member or friend?: No Do you have trouble with day-to-day activities such as bathing, preparing meals, shopping, managing finances, etc.?: No Are you currently unemployed and looking for a job?: No Are you interested in more education?: No Please select the resources that you would like help with: None Currently or been in a relationship where the following occur: No concerns re ported THRIVE Score: 1 AUDIT C Alcohol Use Questionnaire (AUDIT-C) 1. How often do you have a drink containing alcohol?: Never 3. How often do you have six or more drinks on one occasion?: Never Total Score: 0 Score Reviewed/Action Taken: Yes TUYET-7 AMB Questionnaire TUYET-7 Date TUYET - 7 assessed: 03/25/25 Feeling nervous, anxious, or on edge: 1 = Several days Not being able to stop or control worryin = Several days Worrying too much about different things: 1 = Several days Trouble relaxin = Not at all Being so restless that it is hard to sit still: 0 = Not at all Becoming easily annoyed or irritable: 0 = Not at all Feeling afraid as if something awful might happen: 0 = Not at all Total TUYET-7 score (0-4 normal; 5-9 mild; 10-14 moderate; 15-21 severe): 3 Source: Developed by Drs. Victor Manuel Coon, Marilia Ramirez, Sebastian Lucio and colleagues, with an educational marjan from [employer] To Get Approved For. TUYET-7 Assessment Billing TUYET-7 Assessment Tool: TUYET-7 Assessment 61078 Physical exam (Primary Care) Vital Signs: Last Vital Signs Temp 97.8 F 03/25/25 09:45 Pulse 85 03/25/25 09:45 BP 120/80 03/25/25 09:45 Pulse Ox 96 03/25/25 09:45 Oxygen Delivery Method Room Air 03/25/25 09:45 BMI result Body Mass Index 29.6 Tobacco/Smoking Status: Tobacco use Status Tobacco use date assessed 03/25/25 03/25/25 09:47 Patient Tobacco Use Status Never used Tobacco 03/25/25 09:47 e-Cigarette/Vaping Use Never Used 03/25/25 09:47 PHQ-9: PHQ-9 Score PHQ-9: Total score 2 03/25/25 09:47 Depression Screening Interpretation: Negative Thrive Assessment: Date of Thrive Assessment Date Thrive assessed 03/25/25 03/25/25 09:47 Currently or been in a relationship where the following occur: No concerns reported Coding Level of Care Code Est Pt Level 3 (03324) Diagnoses Elevated fasting blood sugar R73.01 Seizures R56.9 Dyslipidemia E78.5 Additional Codes TUYET-7 Assessment Billing - TUYET-7 Assessment Tool: TUYET-7 Assessment 05059 ([id number]) PHQ-9 - 42507 - PHQ-9 Billing: Yes ([id number]) Assessment & Plan Assessment & Plan (1) Elevated fasting blood sugar: Code(s): R73.01 - Impaired fasting glucose Category: Medical (2) Seizures: Comment: Last seizure was over 10 years ago. Patient currently taking levetiracetam. Well controlled. Code(s): R56.9 - Unspecified convulsions Category: Medical (3) Dyslipidemia: Code(s): E78.5 - Hyperlipidemia, unspecified Category: Medical Plan . Orders: Orders Complete Blood Count Auto Diff Today R73.01 - Impaired fasting glucose Lipid Panel Today R73.01 - Impaired fasting glucose Comprehensive [place]. Panel Fast Today R73.01 - Impaired fasting glucose TSH reflex Free T4 Today R73.01 - Impaired fasting glucose UA CC w/rflx Micro + Cult Today R73.01 - Impaired fasting glucose Levetiracetam Keppra Today R56.9 - Unspecified convulsions
== END 2025-03-25 10:30 | disposition home or self-care (01) ==
LOC: HO.HMCC 09:44
PROVIDERS: PCP Nurse Practitioner Family; Visit Provider Nurse Practitioner Family
DX: R73.01 Impaired fasting glucose (principal); R56.9 Unspecified convulsions; E78.5 Hyperlipidemia, unspecified

== ENCOUNTER → 2025-03-25 09:43 | Outpatient (BNVA) | payer OTHER, SELFPAY | PROVIDERS: PCP Nurse Practitioner Family; Visit Provider Nurse Practitioner Family | DX: R73.01 Impaired fasting glucose (principal); G40.909 Epilepsy, unspecified, not intractable, without status epilepticus; E78.5 Hyperlipidemia, unspecified | CPT/HCPCS: 96127 ==

== ENCOUNTER 2025-03-26 10:06 | Outpatient (REF) | payer OTHER, SELFPAY ==
--- OUTSIDE RECORDS SUMMARY | 2025-03-26 11:11 | XMS_ITS | Clinical Summary ---
Author Organization [address] [place] [address] Address [address] [place] [address] Phone Care Team Providers Care Demand Generation Manager Name Role Phone Michael Rich NP Primary [...] tablet (20 mg total) by mouth. Active Hospital, Clinic, or Other Facility Administered Medication Ordered Dose Route Frequency Start Date End Date Status lidocaine (XYLOCAINE) 1 % injection 0.5 mLIndications:Trigge r ring finger of left hand .5 mL inj Once PRN Procedure 03/20/2025 03/20/2025 Ended triamcinolone acetonide (KENALOG-40) 40 mg/mL injection 40 mgIndications:Trigge r ring finger of left hand 40 mg IAtc Once PRN Procedure 03/20/2025 03/20/2025 Ended Encounters Date Type Department Care Team Description 03/20/2025 2:30 PM EDT Office Visit Orthopedic Surgery [facility] [address] [facility] [address] [place] [address] Zeenat Roche PA Trigger ring finger of left hand (Primary Dx) 02/04/2025 10:30 AM EDT Office Visit Orthopedic Surgery - [address] [place] [address] Zeenat Roche PA Hand numbness (Primary Dx); Trigger middle finger of right hand from Last 3 Months Immunizations Name Administration Dates Next Due Influenza [...] - - Weight 98.9 kg (218 lb) 03/20/2025 2:10 PM EDT Height 182.9 cm (6' 0.01 ) 02/04/2025 10:25 AM E DT Body Mass Index 29.56 02/04/2025 10:25 AM EDT Plan of Treatment Health Maintenance Due Date Last Done Comments Cholesterol Screening (Lipid Panel) 08/28/2022 Colorectal Cancer [...] series) 2031 Zoster Vaccines Completed 12/08/2020, 08/04/2020 Pneumococcal Vaccine: 50+ Years Completed 09/24/2024, 08/24/2021 HIB Vaccines Aged Out No longer eligi [...] on patient's age to complete this topic Procedures Procedure Name Priority Date/Time Associated Diagnosis Comments OR INJECTION SINGLE TENDON SHEATH OR LIGAMENT APONEUROSIS Routine 03/20/2025 2:30 PM EDT Trigger ring finger of left hand OR INJECTION SINGLE TENDON SHEATH OR LIGAMENT APONEUROSIS Routine 02/04/2025 10:30 AM EDT Trigger middle finger of right hand from Last 3 Months Results * OR INJECTION SINGLE TENDON SHEATH OR LIGAMENT APONEUROSIS (03/20/2025 2:30 PM EDT) Zeenat Khan PA - 03/20/2025 2:30 PM EDT JEMMA Chin 03/20/2025 3:28 PM Hand / UE Inj/Asp: L ring A1 for trigger finger Indications: pain Details: 25 G needle, volar approach Medications: 40 mg triamcinolone acetonide 40 mg/mL; 0.5 mL lidocaine 1 % Informed Consent: Laterality: Left Relevant images/test results available and reviewed: yes Health status cleared: Yes Procedure/treatment, purpose, treatment alternatives, risks/potential complications and benefits explained: yes Risk/complications/benefits details: Risks of infection, thinning of the skin and temporary skin discoloration discussed. Discussed risks of temporary increased pain after injection and swelling and mild redness at injection site for couple days. Explained occasionally cortisone injection can cause facial flushing temporarily. Benefits pain management. For postop injection pain ice, Tylenol and/or NSAIDs if patient can take Patient questions answered: yes Patient agrees, verbalizes understanding, and wants to proceed: yes Consent given by: Patient Informed consent discussion completed by Physician/JESSICA with patient: Verbal Pre-procedure timeout performed: yes us Zeenat [facility] ORDERABLES Final Result * OR INJECTION SINGLE TENDON SHEATH OR LIGAMENT APONEUROSIS (02/04/2025 10:30 AM EDT) Zeenat Khan PA - 02/04/2025 10:30 AM EDT JEMMA Chin 02/04/2025 12:31 PM Hand / UE Inj/Asp: R long A1 for trigger finger Indications: pain Details: 25 G needle, volar approach Medications: 40 mg triamcinolone acetonide 40 mg/mL; 0.5 mL lidocaine 1 % Informed Consent: Relevant images/test results available and reviewed: yes Health status cleared: Yes Procedure/treatment, purpose, treatment alternatives, risks/potential complications and benefits explained: yes Risk/complications/benefits details: Risks of infection, thinning of the skin and temporary skin discoloration discussed. Discussed risks of temporary increased pain after injection and swelling and mild redness at injection site for couple days. Explained occasionally cortisone injection can cause facial flushing temporarily. Benefits pain management. For postop injection pain ice, Tylenol and/or NSAIDs if patient can take Patient questions answered: yes Patient agrees, verbalizes understanding, and wants to proceed: yes Consent given by: Patient Informed consent discussion completed by Physician/JESSICA with patient: Verbal Pre-procedure timeout performed: yes us Zeenat [facility] ORDERABLES Final Result from Last 3 Months Insurance [facility] Care Teams Demand Generation Manager Relationship Specialty Start Date End Date Michael Rich NP [address] [place], [place] PCP - General 03/15/22
[2025-03-26 12:58] LABS: MANUAL DIFF FLAG NO
[2025-03-26 13:16] LABS: Hematocrit 44.8 % (42.0-52.0); Hemoglobin 15.2 g/dl (14.0-18.0); Imm Gran Abs Auto 0.01 X10*3/uL (0.00-0.03); Imm Gran Pct Auto 0.2 % (0.0-0.4); Lymphocytes Absolute Auto 1.6 X10*3/uL (1.2-4.9); Mean Corpuscular HGB Conc 33.9 g/dl (31.0-36.0); Mean Corpuscular Hemoglobin 31.2 pg (27.0-33.0); Mean Corpuscular Volume 92.0 fL (80.0-98.0); NRBC Abs Auto 0.000 X10*3/uL (0.0-0.012); NRBC Pct Auto 0.0 /100WBC (0.0-0.2); Platelet Count 155 X10*3/uL (160-400); Red Blood Count 4.87 X10*6/uL (4.60-5.80); White Blood Count 5.8 X10*3/uL (4.8-10.8)
[2025-03-26 13:23] LABS: Appearance Urine Clear; Glucose Urine UA Negative (Negative); PH 8.5 (5.0-9.0); Specific Gravity - Urine 1.025 (1.005-1.025)
[2025-03-26 13:49] LABS: Alanine Aminotransferase 34 U/L (0-40); Albumin Level 4.6 g/dL (3.5-5.0); Alkaline Phosphatase 107 U/L (39-117); Anion Gap 13 (12-20); Aspartate Amino Transferase 36 U/L (5-37); Blood Urea Nitrogen 15 mg/dL (9-16); Calcium 8.8 mg/dL (8.4-10.2); Carbon Dioxide 26 mmol/L (22-29); Chloride 102 mmol/L (96-108); Cholesterol 114 mg/dL (<200); Estimated Glomerular Filt Rate > 60; HDL Cholesterol 47 mg/dL (>40); Potassium 4.7 mmol/L (3.3-5.1); Sodium 136 mmol/L (135-145); Total Protein 7.2 g/dL (6.5-8.0); Triglycerides 60 mg/dL (<150)
[2025-04-01 01:28] LABS: Levetiracetam Keppra 25.5 mcg/mL (6.0-46.0)
== END 2025-03-26 10:07 | disposition home or self-care (01) ==
LOC: HO.HMGCLDS 10:06
PROVIDERS: PCP Nurse Practitioner Family; Visit Provider Nurse Practitioner Family
DX: R73.01 Impaired fasting glucose (principal); R56.9 Unspecified convulsions
CPT/HCPCS: 36415; 80053; 80061; 80177; 81003; 84443; 85025

== ENCOUNTER 2025-05-01 10:19 | Outpatient (AMB) | payer OTHER, SELFPAY ==
[2025-05-01 10:21] VITALS: BP 128/86; PULSE 77; TEMP 36.5; O2SAT 98; BMI 29.7
--- NOTE | 2025-05-01 10:21 | MHC.OFFWIV ---
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 - Chronic shoulder pain for 30 years, recently worsened after lifting heavy objects. - Lifted an AC unit 2 days ago, pain started the next morning. - Pain localized to left posterior shoulder, worsens with pressure. - Self-treatment with OTC NSAIDs and topical creams was ineffective. Physical Exam General: Cooperative, healthy appearing, comfortable, no acute distress and well developed Orientation: Patient oriented x3 Limitations: No limitations Head: Normal to inspection Ears: Hearing grossly normal bilaterally Nose: Normal External nose present Face and sinus: Normal facial exam Mouth: normal, moist oral mucosa Eyes: Appearance normal, both eyes and all related structures Neck: Normal visual inspection and Yes full ROM Respiratory: Normal respiratory effort and able to speak in complete sentences. Skin: no rashes or lesions noted Neuro: Patient oriented x3 Extremities: moving all extremities normally, left shoulder full ROM, TTP left posterior shoulder, neg empty can, neg inversion. PFSH Medical History Trigger finger, left Physical exam Acute sinusitis Nocturia Viral respiratory illness Dehydration Fatigue Cyst of skin Acute neck sprain Screening PSA (prostate specific antigen) Constipation Vasovagal syncope Sinus headache Stress Screening for colon cancer Insomnia Excessive daytime sleepiness Pain of hand and fingers Swelling of right hand Fatigue after vaccination Screening PSA (prostate specific antigen) Physical exam Medication refill Cellulitis Splinter Ichthyosis Family history of colon cancer Depression Seizures Surgical History Hx of colonoscopy History of hernia repair Hx of cholecystectomy Family History Father Colon cancer Mother Unknown family medical history Dementia associated with alcoholism Brother Cirrhosis Substance use disorder Son No problems noted. Son No problems noted. Social History Housing: House Are you a primary health care legal assistant to a significant other at home: No Do you presently have visiting nurse or other home services: No Alcohol intake: never Patient Tobacco Use Status: Never used Tobacco e-Cigarette/Vaping Use: Never Used Second Hand Smoke Exposure: No Substance Use Type: Marijuana service: No Current occupational status: employed and retired Cognitive needs: No Hearing needs: No Vision needs: Yes Review of Systems Const All systems reviewed & are unremarkable except as noted in HPI and below Physical Exam Vital Signs: Last Vital Signs Temp 97.7 F 05/01/25 10:21 Pulse 77 05/01/25 10:21 BP 128/86 05/01/25 10:21 Pulse Ox 98 05/01/25 10:21 Oxygen Delivery Method Room Air 05/01/25 10:21 BMI result Body Mass Index 29.7 Assessment & Plan Assessment & Plan (1) Shoulder pain, left: Code(s): M25.512 - Pain in left shoulder Qualifiers: Chronicity: acute Qualified Code(s): M25.512 - Pain in left shoulder Plan: Plan Patient was informed and verbally consented to the use of an ambient scribe for clinic note documentation during this visit 1. Shoulder Pain - Rest and avoid aggravating activities. - Prescribed meloxicam once daily for inflammation. - Prescribed muscle relaxant; avoid driving and alcohol. - Use topical gels and ice for relief. - Follow-up if no improvement in 2-3 weeks. Medications: New cyclobenzaprine 5 mg PO Q8H PRN 20 tabs 0RF Muscle Spasm meloxicam 15 mg PO DAILY PRN 15 tabs 0RF pain, moderate Discontinued ibuprofen Discontinued Reason: Duplicate 800 mg PO Q8H 20 tabs 0RF M25.512 - Pain in left shoulder Coding Level of Care Code Est Pt Level 3 (48797) Diagnoses Acute pain of left shoulder M25.512 Chronicity: acute
--- OUTSIDE RECORDS SUMMARY | 2025-05-01 10:55 | XMS_ITS | Clinical Summary ---
Author Organization [address] [place] [address] Address [address] [place] [address] Phone Care Team Providers Care Personal Financial Counselor Name Role Phone Michael Rich NP Primary [...] tablet (20 mg total) by mouth. Active Encounters Date Type Department Care Team Description 03/20/2025 2:30 PM EDT Office Visit Orthopedic Surgery [address] [phone] Zeenat Roche PA Trigger ring finger of left hand (Primary Dx) 02/04/2025 10:30 AM EDT Office Visit Orthopedic [address] [address] Zeenat Roche PA Hand numbness (Primary [...] Panel) 08/28/2022 Colorectal Cancer Screening: Colonoscopy 08/28/2022 Falls Risk Assessment 08/28/2022 Hepatitis C Screening 08/28/2022 Social Influencers of Health Screening 08/28/2022 COVID-19 Vaccine ( season) 2024 09/03/2022, 07/13/2021, 06/22/2021 Depression Screening 09/26/2024 Influenza Vaccine (#1) 2025 2, 06/24/2020, 07/05/2019, Additional history exists DTaP,Tdap,and Td [...] Procedure Name Priority Date/Time Associated Diagnosis Comments [place] INJECTION SINGLE TENDON SHEATH OR LIGAMENT APONEUROSIS Routine 03/20/2025 2:30 PM EDT Trigger ring finger of left hand [place] INJECTION SINGLE TENDON SHEATH OR LIGAMENT APONEUROSIS Routine 02/04/2025 10:30 AM EDT Trigger middle finger of right hand from Last 3 Months Results * [place] INJECTION SINGLE TENDON SHEATH OR LIGAMENT APONEUROSIS (03/20/2025 2:30 PM EDT) Narrative Zeenat Roche PA - 03/20/2025 2:30 PM EDT JEMMA [...] with patient: Verbal Pre-procedure timeout performed: yes Zeenat [facility] ORDERABLES Final Result * [place] INJECTION SINGLE TENDON SHEATH OR LIGAMENT APONEUROSIS [...] with patient: Verbal Pre-procedure timeout performed: yes Zeenat [facility] ORDERABLES Final Result from Last 3 Months Insurance [facility] Care Teams Personal Financial Counselor Relationship Specialty Start Date End Date Michael Rich NP [address] [place], [place] PCP - General 03/15/22
== END 2025-05-01 11:39 | disposition home or self-care (01) ==
PROVIDERS: PCP Nurse Practitioner Family; Visit Provider Physician Assistant
DX: M25.512 Pain in left shoulder (principal)

== ENCOUNTER 2025-05-06 09:52 | Outpatient (AMB) | payer OTHER, SELFPAY ==
[2025-05-06 09:58] VITALS: BP 122/74; PULSE 90; TEMP 36.7; O2SAT 95; BMI 29.4
--- NOTE | 2025-05-06 09:58 | AM.OFFWIN_ITS ---
Intake Vital Signs 05/06/25 09:58 Height 6 ft Weight 217 lb BMI 29.4 BP 122/74 Blood Pressure Location Lt brachial Position Sitting Pulse 90 Pulse Source Pulse Oximeter Temp 98.0 F Temp Source Oral Pulse Oximetry (%) 95 Oxygen Delivery Method Room Air Intake Visit Reasons: EP Vomiting clear mucus on/off weeks-not sick Patient Tobacco Use Status: Never used Tobacco Allergies prednisone Allergy (Severe, Verified 05/06/25 10:04) severe headaches HPI HPI Comments History of Present Illness Details History of Present Illness - The patient is a 70-year-old male pres enting with vomiting of clear mucus. - The vomiting episodes have been occurr ing for a week, typically after meals, and involve the expulsion of clear mucus. - Once he vomits up the mucous, he is th en able to eat. - He reports no blood or food vomitus. - He experiences dryness in the nasal pa ssages, which he attributes to the absence of the nasal spray. - No additional symptoms such as fever, chills, or chest pain are reported. - He is not a smoker. Physical Exam General: Cooperative, healthy appearing, comfortable, no acute distress and well developed Orientation: Patient oriented x3 Limitations: No limitations Head: Normal to inspection Ears: Normal canals bilaterally. TMs are normal, not bulging. Nose: Normal external nose present Face and sinus: Normal facial exam. No sinus tenderness noted. Eyes: Appearance normal, both eyes and all related structures Neck: Normal visual inspection and Yes full ROM Respiratory: Normal respiratory effort and able to speak in complete sentences. Clear to auscultation bilaterally. No w/r/r noted. Cardiovascular: Regular rate and rhythm. Normal S1 and S2. No m/r/g noted. GI: Normal to inspection. Soft to palpation and nontender. No guarding or rebound tenderness noted. Skin: No rashes or lesions noted Patient was informed and verbally consented to the use of an ambient scribe for clinic note documentation during this visit. [facility] Medical History Trigger finger, left Physical exam Acute sinusitis Nocturia Viral respiratory illness Dehydration Fatigue Cyst of skin Acute neck sprain Screening PSA (prostate specific antigen) Constipation Vasovagal syncope Sinus headache Stress Screening for colon cancer Insomnia Excessive daytime sleepiness Pain of hand and fingers Swelling of right hand Fatigue after vaccination Screening PSA (prostate specific antigen) Physical exam Medication refill Cellulitis Splinter Ichthyosis Family history of colon cancer Depression Seizures Surgical History Hx of colonoscopy History of hernia repair Hx of cholecystectomy Family History Father Colon cancer Mother Unknown family medical history Dementia associated with alcoholism Brother Cirrhosis Substance use disorder Son No problems noted. Son No problems noted. Social History Housing: House Are you a primary medicare nurse to a significant other at home: No Do you presently have visiting nurse or other home services: No Alcohol intake: never Patient Tobacco Use Status: Never used Tobacco e-Cigarette/Vaping Use: Never Used Second Hand Smoke Exposure: No Substance Use Type: Marijuana service: No Current occupational status: employed and retired Cognitive needs: No Hearing needs: No Vision needs: Yes Review of Systems Const All systems reviewed & are unremarkable except as noted in HPI and below Physical Exam Vital Signs: Last Vital Signs Temp 98.0 F 05/06/25 09:58 Pulse 90 05/06/25 09:58 BP 122/74 05/06/25 09:58 Pulse Ox 95 05/06/25 09:58 Oxygen Delivery Method Room Air 05/06/25 09:58 BMI result Body Mass Index 29.4 Assessment & Plan Assessment & Plan (1) Post-nasal drip: Code(s): R09.82 - Postnasal drip Plan Most likely post nasal drip vs reflux vs allergic rhinitis Plan - Prescribe a nasal spray to manage postnasal drip. - Provide cetirizine to alleviate symptoms. - Advise the patient to follow up if symptoms continue. - Diet as tolerated - follow up with PCP Medications: New cetirizine 10 mg PO DAILY PRN 30 tabs 0RF allergy symptoms fluticasone propionate 50 mcg/actuation administer into each nostril 1 spray intranasal Q12H 16 grams 0RF Coding Level of Care Code Est Pt Level 3 (28123) Diagnoses Post-nasal drip R09.82
--- OUTSIDE RECORDS SUMMARY | 2025-05-06 10:24 | XMS_ITS | Clinical Summary ---
Author Organization [address] [place] [address] Address [address] [place] [address] Phone Care Team Providers Care Ultrasonic Solderer Name Role Phone Michael Rich NP Primary Care Provider [phone] Allergies No known active allergies Medications atorvastatin [...] 2:30 PM EDT Office Visit Orthopedic Surgery [address] [phone] Zeenat Roche PA Trigger ring finger of left hand (Primary Dx) 02/04/2025 10:30 AM EDT Office Visit Orthopedic [address] [phone] Zeenat Roche PA Hand numbness [...] Procedure Name Priority Date/Time Associated Diagnosis Comments [place] INJECTION SINGLE TENDON SHEATH OR LIGAMENT APONEUROSIS Routine 03/20/2025 2:30 PM EDT Trigger ring finger of left hand [place] INJECTION SINGLE TENDON SHEATH OR LIGAMENT APONEUROSIS Routine 02/04/2025 10:30 AM EDT Trigger middle finger of right hand from Last 3 Months Results * [place] INJECTION SINGLE TENDON SHEATH OR LIGAMENT APONEUROSIS [...] [facility] ORDERABLES Final Result * [place] INJECTION SINGLE TENDON SHEATH OR LIGAMENT APONEUROSIS [...] Final Result from Last 3 Months Insurance [facility] Care Teams Ultrasonic Solderer Relationship Specialty Start Date End Date Michael Rich NP [address] [place], [place] PCP - General 03/15/22
== END 2025-05-06 11:38 | disposition home or self-care (01) ==
PROVIDERS: PCP Nurse Practitioner Family; Visit Provider Physician Assistant Medical
DX: R09.82 Postnasal drip (principal)

== ENCOUNTER 2025-05-30 09:44 | Outpatient (REF) | payer OTHER, SELFPAY ==
--- OUTSIDE RECORDS SUMMARY | 2025-05-30 10:38 | XMS_ITS | Clinical Summary ---
Author Organization [address] [place] [address] Address [address] [place] [address] Phone Care Team Providers Care Acid Polymerization Operator Name Role Phone Michael Rich NP Primary [...] 2:30 PM EDT Office Visit Orthopedic Surgery - [address] [place] [address] Zeenat Roche PA Trigger ring finger of left hand (Primary Dx) from Last 3 Months Immunizations Name Administration [...] 08/28/2022 Social Influencers of Health Screening 08/28/2022 Depression Screening 09/26/2024 COVID-19 Vaccine ( season) 2025 09/03/2022, 07/13/2021, 06/22/2021 Influenza Vaccine (#1) 2025 2, 06/24/2020, 07/05/2019, [...] Procedure Name Priority Date/Time Associated Diagnosis Comments [place] INJECTION SINGLE TENDON SHEATH OR LIGAMENT APONEUROSIS Routine 03/20/2025 2:30 PM EDT Trigger ring finger of left hand from Last 3 Months Results * [place] INJECTION SINGLE TENDON SHEATH OR LIGAMENT APONEUROSIS [...] Final Result from Last 3 Months Insurance [facility] Care Teams Acid Polymerization Operator Relationship Specialty Start Date End Date Michael Rich NP [address] [place], [place] PCP - General 03/15/22
[2025-05-30 13:58] LABS: Prostate Specific Antigen 3.31 ng/mL (<0.05-4.0)
== END 2025-05-30 09:45 | disposition home or self-care (01) ==
LOC: HO.HMGCLDS 09:44
PROVIDERS: PCP Nurse Practitioner Family; Visit Provider Urology
DX: Z12.5 Encounter for screening for malignant neoplasm of prostate (principal); N40.1 Benign prostatic hyperplasia with lower urinary tract symptoms; R39.12 Poor urinary stream
CPT/HCPCS: 36415; 84153

== ENCOUNTER 2025-06-13 11:26 | Outpatient (AMB) | payer OTHER, SELFPAY ==
--- OUTSIDE RECORDS SUMMARY | 2025-06-11 13:45 | XMS_ITS | Encounter Summary ---
Author Organization [facility] Address [address] [place] [address] Care Team Providers Care Help Desk Internship Name Role Phone Michael Rich YOKO Primary Care Provider Reason for Referral * Orthopedic (Routine) - Pending Review Specialty Diagnoses / Procedures Referred By Nazanin shoemaker Referred To Contact Orthopedic Surgery / Orthopaedic Surgery Diagnoses Right carpal tunnel syndrome Procedures Hand / UE Inj/Asp: R carpal tunnel Zeenat Roche PA [address] [place] [address] Phone: tel: fax: Referral ID Status Reason Start Date Expiration Date V isits Requested Visits Authorized [id number] Pending Review 06/11/2025 06/11/2026 1 1 Reason for Visit * Reason Comments Pain Encounter Details Date Type Department Care Team (Late st Contact Info) Description 06/11/2025 1:45 PM EDT Office Visit Orthopedic Surgery - [address] [place] [id number] Zeenat Roche PA [address] [place] [address] Right carpal tunnel syndrome (Primary Dx) Social History Tobacco Use Types Packs/Day Years Used Date Smoking Tobacco: Never Smokeless Tobacco: Never Alcohol Use Standard Drinks/Week Comments Never 0 (1 standard drink = 0.6 oz pur e alcohol) Sex and Gender Information Value Date Recorded Sex Assigned at Not on file Legal Sex Male 8:58 PM EST Gender Identity Not on file Sexual Orientation Not on file documented as of this encounter Progress Notes * JEMMA Chin - 06/11/2025 1:45 PM EDTAssociated Order(s): Hand / UE Inj/Asp: R carpal tunnel Post-Procedure Diagnose(s): Right carpal tunnel syndrome CHIEF COMPLAINT: Pain of the Right Hand had concerns including Pain of the Right Hand. IDENTIFIER: Mj Robert is a 70 y.o. old male SUBJECTIVE: Mj Robert is here for follow up on 06/11/2025 for increased right hand pain and numbness and tingling. I have seen patient for multiple trigger fingers. On review of my notes patient had mentioned some intermittent paresthesias in both his hands. He reports over the past week and a half he has significantly increased pain and numbness tingling in all his fingers mainly at nighttime. It interferes with sleep. He states is worse at the thumb index and long and ring finger. He states in earlyAugust he forcibly whacked his right elbow against a door and he was having some symptoms of painand tingling. This improved and then over the past week and a half he has been having symptoms again. For the past 3 nights he has not been able to sleep. He has tried meloxicam 15 mg and cyclobenzaprine with no relief. No elbow pain. He has had no other treatment no bracing. PAST MEDICAL/SURGICAL HISTORY: There are no active problems to display for this patient. Past Surgical History: Procedure Laterality Date ??? BACK SURGERY PROCEDURE: HISTORICAL BACK SURGERY; COMMENT: age 28 MEDICATIONS DISCONTINUED/REORDERED: There are no discontinued medications. ACTIVE MEDICATIONS: Current Outpatient Medications on File Prior to Visit Medication Sig Dispense Refill ??? atorvastatin (LIPITOR) 40 mg tablet Take 1 tablet (40 mg total) by mouth. ??? citalopram (CeleXA) 10 mg/5 mL suspension Take 5 mL (10 mg total) by mouth. ??? LORazepam (ATIVAN) 0.5 mg tablet Take 1 tablet (0.5 mg total) by mouth. ??? omeprazole (PriLOSEC) [address] capsule Take 1 capsule (20 mg total) by mouth. ??? quinapriL (ACCUPRIL) 20 mg tablet Take 1 tablet (20 mg total) by mouth. No current facility-administered medications on file prior to visit. ALLERGIES: No Known Allergies PHYSICAL EXAM: Visit Vitals Smoking Status Never APPEARANCE: Alert and in no acute distress EXTREMITIES: Right hand he does have thenar wasting. He can make a full fist with hypothenar, thenar interosseous musculature intact. Negative Tinel's test but positive Phalen's and Durkan's test. Hedoes subjectively report numbness in thumb index and long finger and some at the ring. LABS/IMAGING: No results found for: HGBA1C Xrays reviewed: None IMPRESSION: 1. Right carpal tunnel syndrome PLAN: The details of the visit were reviewed with the patient. Pertinent history, and objective findings were reviewed, along with the diagnoses: Right carpal tunnel syndrome. Discussed with patient treatment options. Discussed cortisone injection to right carpal tunnel for therapeutic and diagnostic purposes. Also discussed bracing and possibility of surgery. Proceeded with right carpal tunnel injection today and he was also provided with a 7 inch wrist brace. He will call for an appointment if symptoms recur or persist. Hand / UE Inj/Asp: R carpal tunnel for carpal tunnel syndrome Indications: pain Details: 25 G needle, volar approach Medications: 0.5 mL lidocaine 1 %; 40 mg triamcinolone acetonide 40 mg/mL Informed Consent: Laterality: Right Relevant images/test results available and reviewed: yes Health status cleared: Yes Procedure/treatment, purpose, treatment alternatives, risks/potential complications and benefits explained: yes Risk/complications/benefits details: Risks of infection, thinning of the skin and temporary skin discoloration discussed. Discussed risks of temporary increased pain after injection and swelling and mild redness at injection site for couple days. Explained occasionally cortisone injection can causefacial flushing temporarily. Benefits pain management. For postop injection pain ice, Tylenol and/or NSAIDs if patient can take Patient questions answered: yes Patient agrees, verbalizes understanding, and wants to proceed: yes Consent given by: Patient Informed consent discussion completed by Physician/JESSICA with patient: Verbal Pre-procedure timeout performed: yes Mj Robert acknowledges understanding of the above plan and agrees to follow recommendations and/or take medications as prescribed. No orders of the defined types were placed in this encounter. @ELECSIG@ documented in this encounter Plan of Treatment Not on file documented as of this encounter Procedures Procedure Name Priority Date/Time Associated Diagnosis Comments [place] INJECTION CARPAL TUNNEL THERAPEUTIC Routine 06/11/2025 1:45 PM EDT Right carpal tunnel syndrome documented in this encounter Results * [place] INJECTION CARPAL TUNNEL THERAPEUTIC (06/11/2025 1:45 PM EDT) Narrative Zeenat Roche PA - 06/11/2025 1:45 PM EDT JEMMA Chin 06/11/2025 3:36 PM Hand / UE Inj/Asp: R carpal tunnel for carpal tunnel syndrome Indications: pain Details: 25 G needle, volar approach Medications: 0.5 mL lidocaine 1 %; 40 mg triamcinolone acetonide 40 mg/mL Informed Consent: Laterality: Right Relevant images/test results available and reviewed: yes [...] Zeenat [facility]/B[facility] ORDERABLES Final Result documented in this encounter Visit Diagnoses Diagnosis Right carpal tunnel syndrome- Primary Carpal tunnel syndrome documented in this encounter Administered Medications Inactive Administered Medications - up to 3 most recent administrations Medication Order MAR Action Action Date Dose Rate Site lidocaine (XYLOCAINE) 1 % injection 0.5 mL 0.5 mL, injection, Once PRN Procedure, Starting on Tue06/11/25 at 1345, For 1 doseIndications:Right carpal tunnel syndrome Given 06/11/2025 1:45 PM EDT 0.5 mL triamcinolone acetonide (KENALOG-40) 40 mg/mL injection 40 mg 40 mg, intra-articular, Once PRN Procedure, Starting on Tue06/11/25 at 1345, For 1 doseIndications:Right carpal tunnel syndrome Given 06/11/2025 1:45 PM EDT 40 mg documented in this encounter Care Teams Help Desk Internship Relationship Specialty Start Date End Date [facility] [address] [facility] [place] [facility] - [facility] 03/15/22 documented as of this encounter
--- NOTE | 2025-06-13 12:09 | A.OFFVIS_ITS ---
Intake Visit Reasons: 1y/PSA Intake Note: Patient presents today for a 1yr follow-up/PSA * 05/30 PSA: 3.31 Urology Meds- Tamsulosin Allergies to Antibiotic- No Known Allergies Blood Thinner- None PVR:37ml Cone Picker Required: No Accompanied by: Self / Same As Patient Allergies prednisone Allergy (Severe, Verified 06/13/25 12:11) severe headaches Medication List - Last Reconciled 06/13/25 by Shea Jarvis MD atorvastatin 80 mg PO DAILY bromfenac 0.09% drps ophthalmic (eye) cetirizine 10 mg PO DAILY PRN citalopram 10 mg (5 mL) PO DAILY cyclobenzaprine 5 mg PO Q8H PRN dextroamphetamine-amphetamine 10 mg ER 1 cap PO DAILY famotidine 40 mg PO DAILY 90 days fluticasone propionate 50 mcg/actuation 1 spray intranasal Q12H levetiracetam 750 mg PO BID lisinopril 10 mg PO DAILY lorazepam 1 mg PO BID PRN meloxicam 15 mg PO DAILY PRN tamsulosin (Flomax) 0.4 mg PO DAILY HPI Comments Details: 06/13/25--Mj is a 70-year-old male who is followed for BPH here for PSA screening he is prescribed tamsulosin 0.4 mg daily. PSA on 05/31/2025 3.31 ng/mL. We will monitor and repeat in 6 months. History of Present Illness The patient is a 70-year-old male presenting with PSA screening and management of Benign Prostatic Hyperplasia (BPH). He has been followed for BPH and is currently prescribed tamsulosin 0.4 mg daily. The patient's PSA level was recorded at 3.31 ng/mL on 05/31/25, which is within the normal range but approaching the upper limit. The PSA level is being monitored due to the risk of prostate enlargement and potential prostate cancer, which are common in men. The patient reports no significant urinary symptoms during the day but experiences nocturia, waking up twice at night to urinate, which is managed by adjusting fluid intake before bedtime. He is advised to monitor caffeine intake as it can act as a diuretic, increasing urinary frequency. Results - PSA level: 3.31 ng/mL on 05/31/25 Plan 1. Benign Prostatic Hyperplasia (Bph) - Continue tamsulosin 0.4 mg daily. - Monitor urinary symptoms and adjust fluid intake to manage nocturia. 2. Elevated Prostate-Specific Antigen (Psa) - Repeat PSA test in six months to monitor levels. - Perform an ultrasound to assess prostate size before the next visit. 06/14/24--Mj is here for follow-up for BPH and lower urinary tract symptoms of urgency frequency and nocturia. He states he is tolerating the tamsulosin, and feels that his urinary flow has improved, denies irritative voiding symptoms. 12/12/2023--Mj is here for follow-up for BPH and lower urinary tract symptoms of urgency frequency and nocturia. He was initially evaluated in September 2023 in started on tamsulosin. He was sent for renal ultrasound. He had a renal ultrasound done I have reviewed the results with him. Kidneys are within normal limits estimated prostate volume, 42 mL. Mj states that he has noticed improvement after a couple of weeks of the tamsulosin he is only getting up 1 time at night instead of 3-4 times. He has also noticed that he gets some blurred vision, he has also been on medication due to a sprain shoulder and plans to see his eye doctor for evaluation. Evaluation: Urinalysis- no signs of infection, bladder scan PVR 42 mL 11/25/2023 Renal ultrasound--kidneys within normal limits negative for parenchymal lesions or cysts. BLADDER: Well distended and normal. Bilateral ureteral jets are demonstrated. Prevoid bladder volume is 181 mL. Postvoid bladder volume is 15 mL. Prostate volume measured 42 mL 10/24/2023--Mj is a 68 year old male who is here for evaluation for weak urinary stream. Past Medical history - Ichthyosis, Family history of colon cancer, Insomnia, Depression, Seizures The patient complains of daytime urinary frequency every hours, nocturia, hematuria, dysuria, feeling of incomplete bladder emptying, coffee --2-3, in AM, less water, history of kidney stones, family history of coolon cancer, at age 68, denies prior nicotine use. I have discussed avoiding dietary bladder irritants, including to cut back on caffeine usage. I have discussed workup to include evaluation of the upper tracts and consideration for cystoscopy evaluation. UA-Bladder scan Post Void Residual: 43 mL, Prostate exam- smooth, firm left apex 06/2023 PSA 2.68; Plan: US Retroperitoneum, tamsulosin, fu in 6 weeks, cont PSA screening, PFSH Medical History Trigger finger, left Physical exam Acute sinusitis Nocturia Viral respiratory illness Dehydration Fatigue Cyst of skin Acute neck sprain Screening PSA (prostate specific antigen) Constipation Vasovagal syncope Sinus headache Stress Screening for colon cancer Insomnia Excessive daytime sleepiness Pain of hand and fingers Swelling of right hand Fatigue after vaccination Screening PSA (prostate specific antigen) Physical exam Medication refill Cellulitis Splinter Ichthyosis Family history of colon cancer Depression Seizures Surgical History Hx of colonoscopy History of hernia repair Hx of cholecystectomy Family History Father Colon cancer Mother Unknown family medical history Dementia associated with alcoholism Brother Cirrhosis Substance use disorder Son No problems noted. Son No problems noted. Social History Housing: House Are you a primary career law clerk to a significant other at home: No Do you presently have visiting nurse or other home services: No Alcohol intake: never Patient Tobacco Use Status: Never used Tobacco e-Cigarette/Vaping Use: Never Used Second Hand Smoke Exposure: No Substance Use Type: Marijuana service: No Current occupational status: employed and retired Cognitive needs: No Hearing needs: No Vision needs: Yes Review of Systems Const All systems reviewed & are unremarkable except as noted in HPI and below Reports no additional complaints Eyes Reports no additional complaints ENT Reports no additional complaints Card Reports no additional complaints Resp Reports no additional complaints GI Reports no additional complaints Reports as per HPI Musc Reports no additional complaints Skin/Breast Reports system reviewed and no additional complaints, except as documented Neuro Reports no additional complaints Psych Reports no additional complaints Endo Reports no additional complaints Ricky/Lymph Reports no additional complaints Aller/Immun Reports no additional complaints Office Procedures Post Void Residual Post Residual Void Post Void Residual (PVR): 37 [id number] Void Residual by ultrasound Results AMB Urinalysis, Automated UA Leukoctes 0 Abeba/uL Last Edit by Lissette Poole on 06/13/25 16:33 UA Nitrite Negative Last Edit by Lissette Poole on 06/13/25 16:33 UA Urobilinogen 3.5 mg/dL Last Edit by Crystal Poole on 06/13/25 16:33 UA Protein 15 mg/dL Last Edit by Crystal Poole on 06/13/25 16:33 UA pH 5.5 Last Edit by Crystal Poole on 06/13/25 16:33 UA Blood 10 Vic/uL Last Edit by Crystal Poole on 06/13/25 16:33 UA Specific [place] 1.025 Last Edit by Crystal Poole on 06/13/25 16:33 UA Ketone Negative Last Edit by Crystal Poole on 06/13/25 16:33 UA Bilirubin 0 mg/dL Last Edit by Crystal Poole on 06/13/25 16:33 UA Glucose 0 mg/dL Last Edit by Crystal Poole on 06/13/25 16:33 Results Reviewed Results Reviewed: Laboratory Last Values Urine pH (Auto) 5.5 06/13/25 16:08 Specific [place] (Auto) 1.025 06/13/25 16:08 Urine Protein (Auto) 15 mg/dL 06/13/25 16:08 Glucose (UA)(Auto) 0 mg/dL 06/13/25 16:08 Urine Ketones (Auto) Negative 06/13/25 16:08 Urine Blood (Auto) 10 Vic/uL 06/13/25 16:08 Urine Nitrite (Auto) Negative 06/13/25 16:08 Urine Bilirubin (Auto) 0 mg/dL 06/13/25 16:08 Urine Urobilinogen (Auto) 3.5 mg/dL 06/13/25 16:08 Leukocyte Esterase (Auto) 0 Abeba/uL 06/13/25 16:08 Date of Service: 11/25/23 EXAMINATION: US RETROPERITONEAL COMPLETE (RENAL) CLINICAL INFORMATION: Benign prostatic hyperplasia with lower urinary tract symptoms. Please measure prostate. COMPARISON: X-ray [facility] 11/06/2023 and 02/08/2022. CT abdomen and pelvis 02/08/2022. Ultrasound abdomen complete 08/24/2017. TECHNIQUE: Real-time imaging of the kidneys and bladder. FINDINGS: RIGHT KIDNEY: 12.2 x 5.4 x 5.7 cm (SAG x AP x TRV). The kidney is normal in size, contour, and echogenicity. Renal cortical thickness is normal. No calculi or focal parenchymal lesions. No hydronephrosis. LEFT KIDNEY: 12.1 x 6.2 x 6.1 cm (SAG x AP x TRV). The kidney is normal in size, contour, and echogenicity. Renal cortical thickness is normal. No calculi or focal parenchymal lesions. No hydronephrosis. BLADDER: Well distended and normal. Bilateral ureteral jets are demonstrated. Prevoid bladder volume is 181 mL. Postvoid bladder volume is 15 mL. ADDITIONAL FINDINGS: Prostate volume measured 42 mL IMPRESSION: Normal study. Assessment & Plan Assessment & Plan (1) BPH loc w urin obs/LUTS: Comment: Being treated with tamsulosin. Well controlled. Code(s): N40.1 - Benign prostatic hyperplasia with lower urinary tract symptoms Category: Medical (2) Weak urinary stream: Comment: Improved on tamsulosin Code(s): R39.12 - Poor urinary stream Category: Medical (3) Nocturia: Code(s): R35.1 - Nocturia Category: Medical Plan Plan 1. Benign Prostatic Hyperplasia (Bph) - Continue tamsulosin 0.4 mg daily. - Monitor urinary symptoms and adjust fluid intake to manage nocturia. 2. Elevated Prostate-Specific Antigen (Psa) - Repeat PSA test in six months to monitor levels. - Perform an ultrasound to assess prostate size before the next visit. Orders: Orders AMB Post Void Residual by ultrasound Today N40.1 - Benign prostatic hyperplasia with lower urinary tract symptoms, R39.12 - Poor urinary stream AMB Urinalysis Automated Today N40.1 - Benign prostatic hyperplasia with lower urinary tract symptoms, R39.12 - Poor urinary stream Medications: Refilled tamsulosin (Flomax) 0.4 mg PO DAILY 90 caps 3RF Patient Instructions: The patient had an opportunity to ask questions regarding treatment plan. The patient expressed understanding and agreement with the above treatment plan. The patient is aware they should contact our office by phone for worsening of their current condition or the appearance of new symptoms. Compliance is encouraged with any medications and followup testing that is ordered. It is a privilege to be allowed the opportunity to participate in the urologic care of your patient. If you have any questions or concerns regarding treatment for the above conditions please do not hesitate to contact me. The office telephone contact is [phone]. This note is constructed in part using voice recognition software. While every effort has been made to ensure accuracy remote sensing technologist errors may have been included. Yours sincerely, Shea Jarvis MD Scribe Plan - Not visible on output: Patient was informed and verbally consented to the use of an ambient scribe for clinic note documentation during this visit. Coding Level of Care Code Est Pt Level 3 (05422) Complex EM visit Add On G2211 Diagnoses BPH loc w urin obs/LUTS N40.1 Weak urinary stream R39.12 Nocturia R35.1 CPT Codes Post Residual Void - PVR CPT Code: 08362-Ssfr Void Residual by ultrasound ([id number])
--- OUTSIDE RECORDS SUMMARY | 2025-06-13 13:50 | XMS_ITS | Clinical Summary ---
Author Organization [address] [facility] Address [address] [place] [address] Phone Care Team Providers Care Academic Affairs Dean Name Role Phone Michael Rich NP Primary [...] Status lidocaine (XYLOCAINE) 1 % injection 0.5 mLIndications:Right carpal tunnel syndrome .5 mL inj Once PRN Procedure 06/11/2025 06/11/2025 Ended triamcinolone acetonide (KENALOG-40) 40 mg/mL injection 40 mgIndications:Right carpal tunnel syndrome 40 mg IAtc Once PRN Procedure 06/11/2025 06/11/2025 Ended Encounters Date Type Department Care Team Description 06/11/2025 1:45 PM EDT Office Visit [facility] [address] [facility] [address] [place] [address] Zeenat Roche, PA Right carpal tunnel syndrome (Primary Dx) 03/20/2025 2:30 PM EDT Office Visit Orthopedic Surgery - [address] [place] [address] Zeenat Roche PA Trigger ring [...] 09/03/2022, 07/13/2021, 06/22/2021 Influenza Vaccine (#1) 2025 , 06/24/2020, 07/05/2019, Additional history exists DTaP,Tdap,and [...] Procedure Name Priority Date/Time Associated Diagnosis Comments MS INJECTION CARPAL TUNNEL THERAPEUTIC Routine 06/11/2025 1:45 PM EDT Right carpal tunnel syndrome MS INJECTION SINGLE TENDON SHEATH OR LIGAMENT APONEUROSIS Routine 03/20/2025 2:30 PM EDT Trigger ring finger of left hand from Last 3 Months Results * MS INJECTION CARPAL TUNNEL THERAPEUTIC (06/11/2025 1:45 PM EDT) Zeenat Khan PA - 06/11/2025 1:45 PM EDT JEMMA [...] [facility] IN CLINIC/BEDSIDE ORDERABLES Final Result * MS INJECTION SINGLE TENDON SHEATH OR LIGAMENT APONEUROSIS [...] Final Result from Last [address] [facility] Care Teams Academic Affairs Dean Relationship Specialty Start Date End Date Michael Rich NP [address] [place], [place] PCP - General 03/15/22
== END 2025-06-13 12:27 | disposition home or self-care (01) ==
LOC: HO.HUSH 11:27
PROVIDERS: PCP Nurse Practitioner Family; Visit Provider Urology
DX: N40.1 Benign prostatic hyperplasia with lower urinary tract symptoms (principal); R39.12 Poor urinary stream; R35.1 Nocturia
CPT/HCPCS: 99213; G2211

== ENCOUNTER → 2025-06-13 11:26 | Outpatient (BNVA) | payer OTHER, SELFPAY | PROVIDERS: PCP Nurse Practitioner Family; Visit Provider Urology | DX: N40.1 Benign prostatic hyperplasia with lower urinary tract symptoms (principal); R39.12 Poor urinary stream; R35.1 Nocturia | CPT/HCPCS: 51798; 81003 ==

== ENCOUNTER 2025-07-17 11:10 | Outpatient (AMB) | payer OTHER, SELFPAY ==
--- NOTE | 2025-07-17 11:26 | MHC.OFFVIS ---
Intake Visit Reasons: 1 yr/cps Allergies prednisone Allergy (Severe, Verified 06/13/25 12:11) severe headaches Medication List - Last Reconciled 07/17/25 by Renetta Faulkner MD atorvastatin 80 mg PO DAILY bromfenac 0.09% drps ophthalmic (eye) cetirizine 10 mg PO DAILY PRN citalopram 10 mg (5 mL) PO DAILY cyclobenzaprine 5 mg PO Q8H PRN dextroamphetamine-amphetamine 10 mg ER 1 cap PO DAILY famotidine 40 mg PO DAILY 90 days fluticasone propionate 50 mcg/actuation 1 spray intranasal Q12H levetiracetam 750 mg PO BID lisinopril 10 mg PO DAILY lorazepam 1 mg PO BID PRN meloxicam 15 mg PO DAILY PRN phenytoin sodium extended 100 mg PO TID quinapril (Accupril) 20 mg PO DAILY tamsulosin (Flomax) 0.4 mg PO DAILY HPI Comments Details: 70 yo man with h/o a grand mal seizure at age 17 and then rare seizures. A trial of stopping Dilantin failed and he had a seizure. His last big seizure was years ago but a smaller one can rarely happen. He said that he was told that his eyes rolled over and he became unresponsive during the episode. He was switched from Dilantin to levetiracetam in 2021. He did not have anymore seizures or any new symptoms. [facility] Medical History Trigger finger, left Physical exam Acute sinusitis Nocturia Viral respiratory illness Dehydration Fatigue Cyst of skin Acute neck sprain Screening PSA (prostate specific antigen) Constipation Vasovagal syncope Sinus headache Stress Screening for colon cancer Insomnia Excessive daytime sleepiness Pain of hand and fingers Swelling of right hand Fatigue after vaccination Screening PSA (prostate specific antigen) Physical exam Medication refill Cellulitis Splinter Ichthyosis Family history of colon cancer Depression Seizures Surgical History Hx of colonoscopy History of hernia repair Hx of cholecystectomy Family History Father Colon cancer Mother Unknown family medical history Dementia associated with alcoholism Brother Cirrhosis Substance use disorder Son No problems noted. Son No problems noted. Social History Housing: House Are you a primary child care centre manager to a significant other at home: No Do you presently have visiting nurse or other home services: No Alcohol intake: never Patient Tobacco Use Status: Never used Tobacco e-Cigarette/Vaping Use: Never Used Second Hand Smoke Exposure: No Substance Use Type: Marijuana service: No Current occupational status: employed and retired Cognitive needs: No Hearing needs: No Vision needs: Yes Review of Systems Narrative Constitutional:?No fever, chills, fatigue, weight loss, or night sweats. HEENT:?No headache, vision changes, hearing loss, nasal congestion, sore throat. Neurological:?No dizziness, syncope, seizures, numbness, tingling, weakness, tremors, memory loss. Psychiatric:?No anxiety, depression, mood swings, sleep disturbance, or hallucinations. Endocrine:?No heat/cold intolerance, polydipsia, polyuria, or hair/skin changes. Hematologic/Lymphatic:?No easy bruising, bleeding, or lymphadenopathy. Integumentary (Skin):?No rash, lesions, itching, or color changes. ? Physical Exam Neuro Other: Mental Status: Alert and oriented to person, place, and time. Normal attention. Normal spontaneous speech, fluency, and comprehension. Cranial Nerves: CN II: Visual uriarte full to confrontation, visual acuity intact. CN III, IV, : Pupils equal, round, reactive to light and accommodation. Extraocular movements are normal. CN V: Facial sensation is normal. CN VII: Facial movements symmetrical. CN VIII: Hearing intact to bedside conversation is normal. CN IX, X: Palate elevates symmetrically. CN XI: Shoulder shrug and head turn symmetrical. CN XII: Tongue midline without atrophy or fasciculations. Motor: Bulk and tone normal in all extremities. No significant muscle weakness in arms and legs. No drift. Reflexes: Deep tendon reflexes 2+ and symmetric. Plantar response down-going bilaterally. Coordination: [id number] and [id number]-vb-[id number] testing normal. No dysmetria. Gait and Station: No obvious gait abnormality. No ataxia or instability. Extrapyramidal: Full facial expressions and blinking. No rigidity. Movements are appropriate with mild postural tremor in outstretched hands Speech: Normal; no dysarthria or tremor. Assessment & Plan Assessment & Plan (1) Epilepsy: Comment: EEG at office in 2019: WNL CT head WO at [facility] in January 2022: mild cortical atrophy. Code(s): G40.909 - Epilepsy, unspecified, not intractable, without status epilepticus Category: Medical Qualifiers: Epilepsy type: partial symptomatic Partial seizure type: with complex partial seizures Intractability: not intractable Status epilepticus: without status epilepticus Qualified Code(s): G40.209 - Localization-related (focal) (partial) symptomatic epilepsy and epileptic syndromes with complex partial seizures, not intractable, without status epilepticus Plan Impression recommendations: 70 years old man who probably has epilepsy with complex partial seizure disorder of unknown cause. He was doing well with levetiracetam 750 mg twice a day, which was continued. Medications: New levetiracetam 750 mg PO BID 180 tabs 3RF Coding Level of Care Code Est Pt Level 3 (08992) Diagnoses Partial symptomatic epilepsy with complex partial seizures, not intractable, without status epilepticus G40.209 Epilepsy type: partial symptomatic Partial seizure type: with complex partial seizures Intractability: not intractable Status epilepticus: without status epilepticus
--- OUTSIDE RECORDS SUMMARY | 2025-07-17 15:12 | XMS_ITS | Clinical Summary ---
Author Organization [address] [place] [address] Address [address] [place] [address] Phone Care Team Providers Care Pest Control Supervisor Name Role Phone Michael Rich NP Primary [...] PM EDT Office Visit Orthopedic Surgery - [address] [place] [address] Zeenat Roche PA Right carpal tunnel syndrome (Primary Dx) from Last 3 Months Immunizations Immunization Administration Dates Next Due Influenza Quadravalent, MDCK [...] Health Maintenance Due Date Last Done Comments Colorectal Cancer Screening: Colonoscopy 1955 Cholesterol Screening (Lipid Panel) 08/28/2022 Falls Risk Assessment 08/28/2022 Hepatitis C [...] Procedure Name Priority Date/Time Associated Diagnosis Comments AL INJECTION CARPAL TUNNEL THERAPEUTIC Routine 06/11/2025 1:45 PM EDT Right carpal tunnel syndrome from Last 3 Months Results * AL INJECTION CARPAL TUNNEL THERAPEUTIC (06/11/2025 1:45 PM [...] Final Result from Last 3 Months Insurance [facility] Care Teams Pest Control Supervisor Relationship Specialty Start Date End Date Michael Rich NP [address] [place], [place] PCP - General 03/15/22
== END 2025-07-17 11:38 | disposition home or self-care (01) ==
LOC: HO.HSM 11:11
PROVIDERS: PCP Nurse Practitioner Family; Referring Provider Nurse Practitioner Family; Visit Provider Psychiatry & Neurology Neurology
DX: G40.209 Localization-related (focal) (partial) symptomatic epilepsy and epileptic syndromes with complex partial seizures, not intractable, without status epilepticus (principal)
CPT/HCPCS: 99213

== ENCOUNTER 2025-07-22 10:56 | Outpatient (AMB) | payer OTHER, SELFPAY ==
[2025-07-22 12:08] VITALS: BP 112/84; PULSE 71; TEMP 36.5; O2SAT 98; BMI 29.0
--- NOTE | 2025-07-22 12:08 | MHC.OFFWIV ---
Intake Vital Signs 07/22/25 12:08 Height 6 ft Weight 214 lb BMI 29.0 BP 112/84 Blood Pressure Location Lt brachial Position Sitting Pulse 71 Pulse Source Pulse Oximeter Temp 97.7 F Temp Source Oral Pulse Oximetry (%) 98 Oxygen Delivery Method Room Air Intake Visit Reasons: EP Right side of body soreness Intake Note: Patient presents with c/o right side rib pain that sometimes radiates up into shoulder x2 weeks related to tripping over a gutter extension & getting the wind knocked out of him. Patient Tobacco Use Status: Never used Tobacco Allergies prednisone Allergy (Severe, Verified 07/22/25 12:12) severe headaches Do you need a note to return to daycare/school/sports/work: No HPI HPI Comments History of Present Illness Details 70 y/o Male patient who presents to the walk in clinic with c/o right side rib pain that radiates up into his right shoulder for 2 weeks. Pt fell 2 weeks ago and landed on his right chest wall. He has been using NSAIDs and Acetaminophen for pain relief. Pt reports that the pain has actually subsided since the Fall. Denies SOB, Wheezing, or CP. FOR[facility]LY [facility], [facility] Medical History Trigger finger, left Physical exam Acute sinusitis Nocturia Viral respiratory illness Dehydration Fatigue Cyst of skin Acute neck sprain Screening PSA (prostate specific antigen) Constipation Vasovagal syncope Sinus headache Stress Screening for colon cancer Insomnia Excessive daytime sleepiness Pain of hand and fingers Swelling of right hand Fatigue after vaccination Screening PSA (prostate specific antigen) Physical exam Medication refill Cellulitis Splinter Ichthyosis Family history of colon cancer Depression Seizures Surgical History Hx of colonoscopy History of hernia repair Hx of cholecystectomy Family History Father Colon cancer Mother Unknown family medical history Dementia associated with alcoholism Brother Cirrhosis Substance use disorder Son No problems noted. Son No problems noted. Social History Housing: House Are you a primary customer care associate to a significant other at home: No Do you presently have visiting nurse or other home services: No Alcohol intake: never Patient Tobacco Use Status: Never used Tobacco e-Cigarette/Vaping Use: Never Used Second Hand Smoke Exposure: No Substance Use Type: Marijuana service: No Current occupational status: employed and retired Cognitive needs: No Hearing needs: No Vision needs: Yes Review of Systems Const All systems reviewed & are unremarkable except as noted in HPI and below Physical Exam Vital Signs: Last Vital Signs Temp 97.7 F 07/22/25 12:08 Pulse 71 07/22/25 12:08 BP 112/84 07/22/25 12:08 Pulse Ox 98 07/22/25 12:08 Oxygen Delivery Method Room Air 07/22/25 12:08 BMI result Body Mass Index 29.0 Const General: no acute distress; No comfortable Nutritional Appearance: well nourished Orientation/consciousness: patient oriented x3 Chest Chest palpation & inspection: no crepitus and tenderness rib and costochondral junction (Right side. ) Resp Effort & Inspection: normal respiratory effort Auscultation: clear to auscultation bilaterally Cardio Heart sounds: S1 normal heart sound present and S2 normal heart sound present Neuro General: patient oriented x3, gait normal and moves all extremities Psych Speech and movement: Normal speech and movement present Assessment & Plan Assessment & Plan (1) Contusion of right chest wall: Code(s): S20.211A - Contusion of right front wall of thorax, initial encounter Plan: Ordered Chest Xray with Ribs Ordered Lidocaine, Meloxicam and Flexeril Ice/Heat Wrapped Howie bandages across chest wall for comfort. Orders: Orders XR ribs RT min 3V w CXR1V Today S20.211A - Contusion of right front wall of thorax, initial encounter Medications: New lidocaine 5% leave on most painful area for up to 12 hrs 1 patch topical DAILY 30 ea 0RF S20.211A - Contusion of right front wall of thorax, initial encounter Refilled meloxicam 15 mg PO DAILY PRN 15 tabs 0RF pain, moderate S20.211A - Contusion of right front wall of thorax, initial encounter cyclobenzaprine 5 mg PO Q8H PRN 20 tabs 0RF Muscle Spasm S20.211A - Contusion of right front wall of thorax, initial encounter Coding Level of Care Code Est Pt Level 4 (75752) Diagnoses Contusion of right chest wall S20.211A Time Spent (min) 20
--- OUTSIDE RECORDS SUMMARY | 2025-07-22 13:37 | XMS_ITS | Clinical Summary ---
Author Organization [address] [place] [address] Address [address] [place] [address] Phone Care Team Providers Care Spoon Maker Name Role Phone Michael Rich NP Primary [...] PM EDT Office Visit Orthopedic Surgery - [address] [place] [address] Zeenat Roche PA Right carpal [...] Procedure Name Priority Date/Time Associated Diagnosis Comments CA INJECTION CARPAL TUNNEL THERAPEUTIC Routine 06/11/2025 1:45 PM EDT Right carpal tunnel syndrome from Last 3 Months Results * CA INJECTION CARPAL TUNNEL THERAPEUTIC (06/11/2025 1:45 PM [...] from Last 3 Months Insurance [facility] Care Teams Spoon Maker Relationship Specialty Start Date End Date Michael Rich NP [address] [place], [place] PCP - General 03/15/22
== END 2025-07-22 13:09 | disposition home or self-care (01) ==
PROVIDERS: PCP Nurse Practitioner Family; Visit Provider Nurse Practitioner Family
DX: S20.211A Contusion of right front wall of thorax, initial encounter (principal)

== ENCOUNTER 2025-07-22 10:56 | Outpatient (REF) | payer OTHER, SELFPAY ==
--- NOTE | ~2025-07-22 | XR_ITS ---
EXAMINATION: XR RIBS, RIGHT CLINICAL INFORMATION: S20.211A - Contusion of right front wall of thorax, initial encounter COMPARISON: None available. TECHNIQUE: 3 views of the right ribs were obtained. FINDINGS: Lungs are clear. No consolidation, pneumothorax, or pleural effusion. The cardiomediastinal silhouette and pulmonary vasculature is within normal limits.. No acute displaced rib fracture is identified. Soft tissue marker positioned along the lateral lower rib cage. Surgical clips in the right upper abdomen. XR/XR ribs RT min 3V w CXR1V IMPRESSION: No radiographic evidence of acute displaced rib fracture is identified. No acute pulmonary process seen. Electronically signed by: Aurelio Houser MD 07/22/2025 01:51 PM EDT RP
== END 2025-07-22 10:57 | disposition home or self-care (01) ==
LOC: HO.XRAY 10:56
PROVIDERS: PCP Nurse Practitioner Family; Visit Provider Nurse Practitioner Family
DX: S20.211A Contusion of right front wall of thorax, initial encounter (principal); W19.XXXA Unspecified fall, initial encounter
CPT/HCPCS: 71101

== ENCOUNTER → 2025-07-22 13:34 | Outpatient (BNV) | payer OTHER, SELFPAY | PROVIDERS: PCP Nurse Practitioner Family; Visit Provider Radiology Diagnostic Ultrasound | DX: S20.211A Contusion of right front wall of thorax, initial encounter (principal) | CPT/HCPCS: 71101 ==

== ENCOUNTER 2025-09-02 10:17 | Outpatient (AMB) | payer OTHER, SELFPAY ==
[2025-09-02 10:25] VITALS: BP 122/64; PULSE 94; RESP 16; O2SAT 97; BMI 29.7
--- NOTE | 2025-09-02 10:25 | MHC.PC.OV ---
Vital Signs 09/02/25 10:25 Height 6 ft Weight 219 lb BMI 29.7 BP 122/64 Blood Pressure Location Lt brachial Position Sitting Respiration 16 Pulse 94 Pulse Source Pulse Oximeter Pulse Oximetry (%) 97 Oxygen Delivery Method Room Air Intake Visit Reasons: SOB with exertion Photo Retoucher Required: No Accompanied by: Self / Same As Patient Allergies prednisone Allergy (Severe, Verified 09/02/25 10:25) severe headaches Tobacco use date assessed: 09/02/25 Fall risk assessment: No Falls in past year Last assessed Fall Risk: 09/02/25 Dental Screening Dental Screen Date: 09/02/25 Did you have a dental visit in the last 12 months?: Yes Did you have a dental problem in the last 6 months where you did not have access to dental care?: No HPI SOB with exertion HPI Details Chief Complaint The patient reports a two-month history of producing a significant amount of phlegm, accompanied by shortness of breath on exertion and intermittent vomiting. History of Present Illness The patient is a 70 year old male presenting with multiple issues, including productive cough, shortness of breath, and vomiting. He reports producing a significant amount of phlegm for the past two months. He denies a history of COPD or smoking but has had various exposures over the years. Associated with this, he experiences dyspnea on exertion but denies any chest pain. He also reports intermittent emesis, occurring about three times a week, which includes both phlegm and food (? vomitting due to frequent coughing). A recent rib x-ray showed no acute pulmonary issues. Social History - Tobacco Use: The patient denies a history of smoking. - Exposures: He reports exposure to various unspecified substances over the years. - Social Support: The patient was accompanied by his ex-, who assisted with communication. Health Maintenance Review of Systems - Respiratory: Reports productive cough with significant phlegm for 2 months and dyspnea on exertion. - Cardiovascular: Denies chest pain. - Gastrointestinal: Reports intermittent emesis of phlegm and food approximately three times a week., denies any blood in vomitus. denies any current constipation or diarrhea Physical Exam General: Cooperative, healthy appearing, comfortable, no acute distress and well developed Orientation: Patient oriented x3 Limitations: No limitations Head: Normal to inspection Ears: Hearing grossly normal bilaterally Nose: Normal external nose present Face and sinus: Normal facial exam Eyes: Appearance normal, both eyes and all related structures Neck: Normal visual inspection and Yes full ROM Respiratory: Normal respiratory effort and able to speak in complete sentences. Clear to auscultation bilaterally Cardiovascular: Regular rate and rhythm. Normal S1 and S2 GI: Normal to inspection. Soft to palpation and nontender Skin: No rashes or lesions noted Neuro: Patient oriented x3 Extremities: Normal to inspection, no edema Results - Imaging: A recent rib x-ray revealed no acute pulmonary issues. Plan 1. Productive Cough The patient reports a two-month history of producing a significant amount of phlegm. A CT scan of the lungs will be ordered to evaluate his symptoms and the amount of phlegm. He will be started on cetirizine or another anticholinergic medication to help reduce secretions. 2. Dyspnea On Exertion The patient experiences shortness of breath with exertion, which does not appear to be caused by his secretions. To investigate the cause, an EKG will be performed today. Additionally, an echocardiogram and a stress test will be ordered. 3. Emesis The patient reports intermittent vomiting of phlegm and food, occurring approximately three times a week. An upper GI series will be ordered to further evaluate this symptom. Discussion Notes I have discussed with the patient the plan to investigate his multiple issues. For his productive cough, we will proceed with a CT scan of his lungs and start cetirizine to manage secretions. To evaluate his shortness of breath on exertion, we will perform an EKG today and schedule an echocardiogram and stress test. For his vomiting, an upper GI series will be ordered. We will also obtain lab work in the near future. Patient Instructions - Begin taking cetirizine (an antihistamine) to help with the phlegm you are producing. - You will have an EKG (heart tracing) performed in the office today. - We will be scheduling several tests for you in the near future, including blood tests, an echocardiogram (ultrasound of your heart), a stress test, a CT scan of your lungs, and an upper GI series (x-ray of your esophagus and stomach). [facility] Medical History Contusion of right chest wall Trigger finger, left Physical exam Acute sinusitis Nocturia Viral respiratory illness Dehydration Fatigue Cyst of skin Acute neck sprain Screening PSA (prostate specific antigen) Constipation Vasovagal syncope Sinus headache Stress Screening for colon cancer Insomnia Excessive daytime sleepiness Pain of hand and fingers Swelling of right hand Fatigue after vaccination Screening PSA (prostate specific antigen) Physical exam Medication refill Cellulitis Splinter Ichthyosis Family history of colon cancer Depression Seizures Surgical History Hx of colonoscopy History of hernia repair Hx of cholecystectomy Family History Father Colon cancer Mother Unknown family medical history Dementia associated with alcoholism Brother Cirrhosis Substance use disorder Son No problems noted. Son No problems noted. Social History Housing: House Are you a primary transition of care specialist to a significant other at home: No Do you presently have visiting nurse or other home services: No Alcohol intake: never Patient Tobacco Use Status: Never used Tobacco e-Cigarette/Vaping Use: Never Used Second Hand Smoke Exposure: No Substance Use Type: Marijuana service: No Current occupational status: employed and retired Cognitive needs: No Hearing needs: No Vision needs: Yes Questionnaire PHQ-9 Over the last 2 weeks, how often have you been bothered by any of the following problems? 1. Little interest or pleasure in doing things: not at all 2. Feeling down, depressed, or hopeless: not at all 3. Trouble falling or staying asleep, or sleeping too much: several days 4. Feeling tired or having little energy: not at all 5. Poor appetite or overeating: not at all 6. Feeling bad about yourself - or that you are a failure or have let yourself or your family down: not at all 7. Trouble concentrating on things, such as reading the newspaper or watching television: not at all 8. Moving or speaking so slowly that other people could have noticed. Or the opposite - being so fidgety or restless that you have been moving around a lot more than usual: not at all 9. Thoughts that you would be better off or of hurting yourself in some way: not at all Total score: 1 Depression Screening Interpretation: Negative Depression Screening Done: Yes 23309 - PHQ-9 Billing: Yes Source: Developed by Drs. Victor Manuel Coon, Marilia Ramirez, Sebastian Lucio and colleagues, with an educational marjan from [employer]. Thrive Questionnaire Date Thrive assessed: 09/24/24 I am a: Patient What is your living situation today?: I have a steady place to live Within the past 12 months, did the food you bought not last and you didn't have the money to get more?: Never true Within the past 12 months, did you worry whether your food would run out before you got money to buy more?: Never true Do you have trouble paying for medicines?: No Do you have trouble getting transportation to medical appointments?: No Do you have trouble paying your heating and electricity bill?: No Do you have trouble taking care of your child, family member or friend?: No Do you have trouble with day-to-day activities such as bathing, preparing meals, shopping, managing finances, etc.?: No Are you currently unemployed and looking for a job?: No Are you interested in more education?: No Please select the resources that you would like help with: None Currently or been in a relationship where the following occur: No concerns reported THRIVE Score: 0 AUDIT C Alcohol Use Questionnaire (AUDIT-C) 1. How often do you have a drink containing alcohol?: Never Total Score: 0 TUYET-7 AMB Questionnaire TUYET-7 Date TUYET - 7 assessed: 09/02/25 Feeling nervous, anxious, or on edge: 1 = Several days Not being able to stop or control worryin = Several days Worrying too much about different things: 1 = Several days Trouble relaxin = Not at all Being so restless that it is hard to sit still: 0 = Not at all Becoming easily annoyed or irritable: 1 = Several days Feeling afraid as if something awful might happen: 0 = Not at all Total TUYET-7 score (0-4 normal; 5-9 mild; 10-14 moderate; 15-21 severe): 4 Source: Developed by Drs. Victor Manuel Coon, Marilia Ramirez, Sebastian Lucio and colleagues, with an educational marjan from [employer]. Physical exam (Primary Care) Vital Signs: Last Vital Signs Pulse 94 09/02/25 10:25 Resp 16 09/02/25 10:25 BP 122/64 09/02/25 10:25 Pulse Ox 97 09/02/25 10:25 Oxygen Delivery Method Room Air 09/02/25 10:25 BMI result Body Mass Index 29.7 Tobacco/Smoking Status: Tobacco use Status Tobacco use date assessed 09/02/25 09/02/25 10:36 Patient Tobacco Use Status Never used Tobacco 09/02/25 10:36 e-Cigarette/Vaping Use Never Used 09/02/25 10:36 PHQ-9: PHQ-9 Score PHQ-9: Total score 1 09/02/25 10:36 Depression Screening Interpretation: Negative Thrive Assessment: Date of Thrive Assessment Date Thrive assessed 09/24/24 09/02/25 10:36 Currently or been in a relationship where the following occur: No concerns reported Coding Level of Care Code Est Pt Level 4 (63171) Diagnoses Phlegm in throat R09.89 Vomiting R11.10 SOB (shortness of breath) on exertion R06.02 Cough R05.9 Additional Codes PHQ-9 - 44680 - PHQ-9 Billing: Yes ([id number]) Assessment & Plan Assessment & Plan (1) Phlegm in throat: Code(s): R09.89 - Other specified symptoms and signs involving the circulatory and respiratory systems Category: Medical (2) Vomiting: Code(s): R11.10 - Vomiting, unspecified Category: Medical (3) SOB (shortness of breath) on exertion: Code(s): R06.02 - Shortness of breath Category: Medical (4) Cough: Code(s): R05.9 - Cough, unspecified Category: Medical (5) SOB (shortness of breath) on exertion: Code(s): R06.02 - Shortness of breath Category: Medical Plan . Orders: Orders AMB EKG-In Office Today R06.02 - Shortness of breath CA echo transthoracic complete Today R06.02 - Shortness of breath CT chest w IV con Today R05.9 - Cough, unspecified, R06.02 - Shortness of breath CA stress test Today R06.02 - Shortness of breath Complete Blood Count Auto Diff Today R09.89 - Other specified symptoms and signs involving the circulatory and respiratory systems Comprehensive [place]. Panel Fast Today R09.89 - Other specified symptoms and signs involving the circulatory and respiratory systems TSH reflex Free T4 Today R09.89 - Other specified symptoms and signs involving the circulatory and respiratory systems UA CC w/rflx Micro + Cult Today R09.89 - Other specified symptoms and signs involving the circulatory and respiratory systems Lipid Panel Today R09.89 - Other specified symptoms and signs involving the circulatory and respiratory systems FL upper GI series Today R11.10 - Vomiting, unspecified NM cardiolite stress test Today R06.02 - Shortness of breath
== END 2025-09-02 12:08 | disposition home or self-care (01) ==
LOC: HO.HMCC 10:18
PROVIDERS: PCP Nurse Practitioner Family; Visit Provider Nurse Practitioner Family
DX: R09.89 Other specified symptoms and signs involving the circulatory and respiratory systems (principal); R11.10 Vomiting, unspecified; R06.02 Shortness of breath; R05.9 Cough, unspecified

== ENCOUNTER → 2025-09-02 10:17 | Outpatient (BNVA) | payer OTHER, SELFPAY | PROVIDERS: PCP Nurse Practitioner Family; Visit Provider Nurse Practitioner Family | DX: R09.89 Other specified symptoms and signs involving the circulatory and respiratory systems (principal); R06.02 Shortness of breath; R11.10 Vomiting, unspecified; R05.9 Cough, unspecified | CPT/HCPCS: 96127 ==

== ENCOUNTER 2025-09-03 10:24 | Outpatient (REF) | payer OTHER, SELFPAY ==
[2025-09-03 13:36] LABS: Appearance Urine Clear; Glucose Urine UA Negative (Negative); PH 6.0 (5.0-9.0); Specific Gravity - Urine 1.025 (1.005-1.025)
[2025-09-03 13:50] LABS: MANUAL DIFF FLAG NO
[2025-09-03 14:00] LABS: Hematocrit 46.4 % (42.0-52.0); Hemoglobin 15.4 g/dl (14.0-18.0); Imm Gran Abs Auto 0.01 X10*3/uL (0.00-0.03); Imm Gran Pct Auto 0.2 % (0.0-0.4); Lymphocytes Absolute Auto 1.7 X10*3/uL (1.2-4.9); Mean Corpuscular HGB Conc 33.2 g/dl (31.0-36.0); Mean Corpuscular Hemoglobin 30.7 pg (27.0-33.0); Mean Corpuscular Volume 92.6 fL (80.0-98.0); NRBC Abs Auto 0.000 X10*3/uL (0.0-0.012); NRBC Pct Auto 0.0 /100WBC (0.0-0.2); Platelet Count 157 X10*3/uL (160-400); Red Blood Count 5.01 X10*6/uL (4.60-5.80); White Blood Count 6.0 X10*3/uL (4.8-10.8)
[2025-09-03 14:18] LABS: Alanine Aminotransferase 25 U/L (0-40); Albumin Level 4.7 g/dL (3.5-5.0); Alkaline Phosphatase 118 U/L (39-117); Anion Gap 8 (12-20); Aspartate Amino Transferase 33 U/L (5-37); Blood Urea Nitrogen 11 mg/dL (9-16); Calcium 9.0 mg/dL (8.4-10.2); Carbon Dioxide 28 mmol/L (22-29); Chloride 106 mmol/L (96-108); Cholesterol 131 mg/dL (<200); Estimated Glomerular Filt Rate > 60; HDL Cholesterol 59 mg/dL (>40); Potassium 4.2 mmol/L (3.3-5.1); Sodium 138 mmol/L (135-145); Total Protein 7.4 g/dL (6.5-8.0); Triglycerides 73 mg/dL (<150)
== END 2025-09-03 10:25 | disposition home or self-care (01) ==
LOC: HO.HMGCLDS 10:24
PROVIDERS: PCP Nurse Practitioner Family; Visit Provider Nurse Practitioner Family
DX: R09.89 Other specified symptoms and signs involving the circulatory and respiratory systems (principal); Z13.6 Encounter for screening for cardiovascular disorders
CPT/HCPCS: 36415; 80053; 80061; 81003; 84443; 85025